=== PATIENT | female | born 1935 | race Caucasian/White ===

== ENCOUNTER 2019-12-08 13:23 | Outpatient (CLI) | payer MEDICARE, BC, SELFPAY ==
--- NOTE | ~2019-12-08 | MM_ITS ---
EXAMINATION: MM screening mare BI w ruth HISTORY: Screening mammogram TECHNIQUE: Craniocaudal and mediolateral oblique 3-D tomosynthesis images were obtained and synthetic 2-D images were generated. CAD analysis was submitted and interpreted. COMPARISON: Comparison to multiple prior studies sequentially, with oldest reviewed study dated 11/08. BREAST PARENCHYMAL COMPOSITION: Breast composed of scattered areas of fibroglandular density FINDINGS: There is no evidence of suspicious mass, calcification, or architectural distortion to sugg est malignancy in either breast. There has been no suspicious interval change. IMPRESSION: 1. No mammographic evidence of malignancy. 2. Recommend routine screening mammography in one year. BI-RADS Category 1: Negative Reviewed, dictated and finalized at location A.
== END 2019-12-08 13:24 | disposition home or self-care (01) ==
PROVIDERS: PCP Internal Medicine; Visit Provider Internal Medicine
DX: Z12.31 Encounter for screening mammogram for malignant neoplasm of breast (principal)
CPT/HCPCS: 77063; 77067

== ENCOUNTER 2020-01-14 21:25 | Emergency (ER) | payer MEDICARE, BC, SELFPAY ==
--- NOTE | ~2020-01-14 | XR_ITS ---
EXAMINATION: XR hand LT min 3V DATE: 01/14/2020 23:31 INDICATION: Left hand pain. TECHNIQUE: 3 views of left hand were obtained. COMPARISON: None. FINDINGS: Bone alignment is normal. No fracture. There is severe osteoarthritis of first carpometacar pal joint, moderate osteoarthritis of first-third metacarpophalangeal joints, severe osteoarthritis o f second, third, and fifth distal interphalangeal joints, and mild to moderate osteoarthritis of the other interphalangeal joints. There is soft tissue swelling of the hand. IMPRESSION: 1. Polyarticular osteoarthritis. Reviewed, dictated and finalized at location A.
[2020-01-14 21:38] VITALS: BP 117/68; PULSE 88; RESP 16; TEMP 36.3; O2SAT 100
--- NOTE | 2020-01-14 21:42 | PC.NURSE ---
Patient has ring noted to left ring finger. Swelling noted above and below the ring. There is no way to slide the ring over her knuckle and patient agrees to have ring cut and removed due to risk of increased swelling and injury to the finger.
--- NOTE | 2020-01-14 22:48 | ED.UPPEXIN ---
HPI - Extremity Injury (Upper) General Chief Complaint: Extremity Injury, Upper Stated Complaint: swelling to left arm and hand Time Seen by Provider: 01/14/20 21:36 History of Present Illness HPI narrative: Pain and swelling to the left hand and forearm for the past few hours. She was working in the garden when she was pulling on something and felt a pop in her left hand. She had pain initially. The pain then faded. After awhile she began to notice itching in the hand and wrist. This area then began to swell and spread up the arm. As the swelling increased it became painful. She is not aware of any exposures. She has h/o severe allergies. no systemic symptoms. Related Data Home Medications Medication Instructions Recorded Confirmed gabapentin 01/14/20 mirabegron [Myrbetriq] mg PO 01/14/20 pregabalin [Lyrica] 75 mg PO BID 01/14/20 simvastatin mg 01/14/20 Allergies Allergy/AdvReac Type Severity Reaction Status Date / Time cephalexin Allergy Unknown Verified 01/14/20 22:51 chlorpheniramine Allergy Unknown Verified 01/14/20 22:51 guaifenesin Allergy Unknown Unknown Verified 01/14/20 21:48 phenylephrine Allergy Unknown Verified 01/14/20 22:52 phenylpropanolamine Allergy Unknown Unknown Verified 01/14/20 21:48 prednisone Allergy Unknown Unknown Verified 01/14/20 21:48 pseudoephedrine Allergy Unknown Verified 01/14/20 22:52 sulfamethoxazole Allergy Unknown Unknown Verified 01/14/20 21:48 trimethoprim Allergy Unknown Unknown Verified 01/14/20 21:48 duloxetine AdvReac Nausea and Verified 01/14/20 21:48 Vomiting Review of Systems Review of Systems: All systems reviewed & are unremarkable except as noted in HPI and below Constitutional: Constitutional: Denies chills and Denies fever(s) Cardiovascular: Cardiovascular: Denies chest pain Respiratory: Respiratory: Denies dyspnea Musculoskeletal: Musculoskeletal: Denies back pain Integumentary/Breasts: Skin/Breast: Reports pruritus and Denies erythema Neurologic: Denies numbness and Denies weakness PMFSH Family History Family History Father Asthma Mother Family history of lung cancer Family history of primary malignant neoplasm of liver Family history of malignant neoplasm of brain Social History Social History Smoking status: Never smoker Second hand tobacco smoke exposure: No Alcohol intake: never Exam Const: General: healthy appearing, no acute distress and alert Orientation/consciousness: patient oriented x3 HENMT: Head: normal to inspection Neck: Neck: normal visual inspection and no lymphadenopathy Chest: Chest palpation & inspection: no tenderness Resp: Effort & Inspection: normal respiratory effort Auscultation: clear to auscultation bilaterally, no rales, no rhonchi and no wheezes Cardio: Jugular venous distension: no JVD Rate: regular rate Rhythm: regular rhythm Heart sounds: no murmurs GI: Inspection: non-distended GI Palp: Yes Soft to palpation and No Tenderness to palpation present (GI) Skin: General skin exam: normal color Neuro: General: patient oriented x3 and moves all extremities Speech: normal speech Extrem: Other: Moderate well demarcated swelling of the left hand extending 1[address] the forearm. Mildly increased warmth. Normal color. Tnederness over the dorsum of the had. Mild scattered abrasions. Psych: Appearance: well kempt Affect: normal affect Course Vital Signs Vital signs: Vital Signs Temperature 36.3 C L 01/14/20 21:38 Pulse Rate 88 01/14/20 21:38 Respiratory Rate 16 01/14/20 21:38 Blood Pressure 117/68 01/14/20 21:38 Pulse Oximetry 100 01/14/20 21:38 Temperature 36.3 C L 01/14/20 21:38 Pulse Rate 84 01/15/20 02:15 Respiratory Rate 18 01/15/20 02:15 Blood Pressure 112/63 01/15/20 02:15 Pulse Oximetry 98 01/15/20 02:15 MDM - Extrem
[2020-01-14] MEDS: FAMOTIDINE 20 MG TABLET PO (23:04)
[2020-01-14] MEDS: CEPHALEXIN 500 MG CAPSULE PO (23:04)
[2020-01-14] MEDS: diphenhydrAMINE HCl CAP 25 MG CAPSULE 50 MG PO (23:04)
[2020-01-14] MEDS: EPINEPHrine HCL INJ 1 MG/ML AMPUL 0.3 MG IM (23:04)
[2020-01-14 23:11] VITALS: BP 110/63; PULSE 75; RESP 14; O2SAT 96
[2020-01-15 00:45] VITALS: BP 136/62; PULSE 80; RESP 14; O2SAT 100
[2020-01-15 02:15] VITALS: BP 112/63; PULSE 84; RESP 18; O2SAT 98
== END 2020-01-15 02:05 | disposition home or self-care (01) ==
PROVIDERS: Emergency Provider Emergency Medicine; PCP Internal Medicine
DX: T78.40XA Allergy, unspecified, initial encounter (principal)
CPT/HCPCS: 73130; 96372; 99283; A9270; J0171

== ENCOUNTER → 2020-09-14 13:25 | Outpatient (CLI) | payer MEDICARE, BC, SELFPAY ==
--- NOTE | ~2020-09-14 | MR_ITS ---
EXAMINATION: MR shoulder RT wo con DATE: 09/14/2020 14:56 INDICATION: Right shoulder and arm pain post injury 2 weeks prior. TECHNIQUE: Magnetic resonance imaging (MRI) of the right shoulder was performed without intravenous c ontrast. Sequences included axial PD-weighted FS FSE, coronal oblique PD-weighted FS FSE, coronal obl ique T2-weighted FS FSE, sagittal PD-weighted FS FSE, and sagittal T1-weighted SE. COMPARISON: None. FINDINGS: Coracoacromial arch: The acromion undersurface is curved in morphology (type II). Anterior subacromial spur at the acromia l insertion of the otherwise normal coracoacromial ligament. Moderate acromioclavicular osteoarthriti s. Rotator cuff: Postoperative change of prior rotator cuff repair with suture anchor tracks at the greater tuberosity and foci of susceptibility artifact on the overlying anterior head of the deltoid muscle. Recurrent full-thickness supraspinatus tendon tear occurring at the critical zone approximately 1.7 cm from the footplate. There is approximately 4 cm medial retraction of the tear margin which is located at the level of the neck of the glenoid. There is medial retraction as well as moderate fatty atrophy of the supraspinatus muscle belly. Mild tendinopathy without discrete tear of the infraspinatus tendon. The teres minor tendon is normal. Moderate subscapularis tendinopathy with partial tear involving the ce phalad half of the lesser tuberosity footplate. There are additional foci of susceptibility artifact along the distal tendon suggesting prior repair. No significant fatty atrophy of the subscapularis, i nfraspinatus or teres minor muscle bellies. Biceps tendon, glenoid labrum and glenohumeral cartilage: Moderate glenohumeral osteoarthritis with partial thickness cartilage loss approaching full/near full -thickness along the cephalad and posterior glenoid with mild subarticular cystic change at the 9:00 position of the posterior glenoid. There is associated tear of the superior to posterior superior gle noid labrum. More amorphous increased signal of the thickened anterior to anteroinferior glenoid cons istent with degenerative tearing. There is a full-thickness tear of the intra-articular long head bic eps tendon. The frayed and thickened tear margin is retracted distally to approximately 8 cm below le batool of the inferior margin of the intertubercular groove. There is a fluid collection surrounding the retracted tendon and proximal aspect of the associated muscle belly consistent with a hematoma which measures approximately 2.6 x 2.4 similar in maximal transaxial dimensions and approximately 7.5 cm i n craniocaudal length. Fluid: Physiologic amount fluid in the glenohumeral joint space with extension of a minimal amount of fluid through the full-thickness rotator cuff tear defect into the subacromial/subdeltoid bursa. No loose o steochondral bodies. Bones: Normal marrow signal. No fracture or pathologic marrow replacing process. IMPRESSION: 1. Full-thickness tear of the intra-articular long head biceps tendon with significant distal retract ion of the torn tendon and moderate sized surrounding fluid collection likely representing a posttrau matic hematoma. 2. Change of prior rotator cuff repair with recurrent full-thickness supraspinatus tendon tear with s ignificant retraction and moderate secondary fatty atrophy. 3. Additional partial tear involving the cephalad half of the lesser tuberosity insertion of the subs capularis tendon without fatty atrophy. 4. Moderate glenohumeral osteoarthritis with superior to posterior superior labral tear more amorphou s anteroinferior labral degeneration. 5. Moderate acromioclavicular osteoarthritis. Reviewed, dictated and finalized at location B. IMP
== END ==
PROVIDERS: PCP Internal Medicine; Visit Provider Internal Medicine
DX: S49.91XA Unspecified injury of right shoulder and upper arm, initial encounter (principal); X58.XXXA Exposure to other specified factors, initial encounter; M19.011 Primary osteoarthritis, right shoulder
CPT/HCPCS: 73221

== ENCOUNTER 2020-10-18 09:55 | Outpatient (CLI) | payer MEDICARE, BC, SELFPAY ==
--- NOTE | ~2020-10-18 | XR_ITS ---
EXAMINATION: XR hip RT min 2V DATE: 10/18/2020 10:17 INDICATION: Right hip pain. TECHNIQUE: 2 views of right hip were obtained. COMPARISON: None. FINDINGS: Bone alignment is normal. No fracture. Right hip joint space is normal. There is severe lum bar spondylosis. IMPRESSION: 1. Normal right hip. Reviewed, dictated and finalized at location B. IMPRESSION: 1. Normal right hip.
== END 2020-10-18 09:56 | disposition home or self-care (01) ==
LOC: ANHIMG 10:04
PROVIDERS: PCP Internal Medicine; Visit Provider Internal Medicine
DX: M25.551 Pain in right hip (principal)
CPT/HCPCS: 73502

== ENCOUNTER 2021-01-03 10:31 | Observation (INO) | payer MEDICARE, BC, SELFPAY ==
[2021-01-03] VITALS (50 sets, daily range): BP systolic 113–171; BP diastolic 50–91; PULSE 51–75; RESP 8–23; TEMP 36.4–36.6; O2SAT 76–100; BMI 22.8
--- NOTE | ~2021-01-03 | XR_ITS ---
EXAMINATION: XR chest 2V DATE: 01/03/2021 11:41 INDICATION: Lower chest pain. Weakness and fatigue. TECHNIQUE: Frontal and lateral views of the chest were obtained. COMPARISON: Chest 2 views 04/05/2014 FINDINGS: A calcified left lung nodule and calcified left hilar lymph nodes are consistent with old g ranulomatous disease. No pleural effusion or pneumothorax. The heart size is normal. IMPRESSION: 1. No acute cardiopulmonary disease. Reviewed, dictated and finalized at location A.
--- NOTE | ~2021-01-03 | CT_ITS ---
EXAMINATION: CTA brain carotid DATE: 01/03/2021 15:59 INDICATION: Headache and dizziness. TECHNIQUE: Computed tomographic angiography (CTA) of the head was performed without and with 100 mL O mnipaque-350 intravenous contrast. CTA of the neck was performed with intravenous contrast. Automated exposure control and iterative reconstruction technique were employed. The dose-length product was 1 626.80 mGy-cm. Maximum intensity projection and volume rendered 3D-reconstructions were created by elisabet becker technologist on a separate workstation. COMPARISON: Head CT 07/23/2010 FINDINGS: HEAD CTA: There are scattered areas of low attenuation in the cerebral white matter, which is within normal limits for the patient's age. There is no intracranial hemorrhage, acute infarction, or abnorm al intracranial mass lesion. The ventricles are normal in size. There are likely changes of ocular le ns replacement surgeries. There is mild mucosal thickening in the paranasal sinuses. The mastoid air cells are normal. The vertebral arteries are codominant. There is no significant stenosis of basilar artery or the posterior cerebral arteries. There is no significant stenosis of the intracranial inter nal carotid arteries or anterior or middle cerebral arteries. Anterior communicating artery is normal . There is no aneurysm. NECK CTA: There are no pathologically enlarged lymph nodes. There is no significant stenosis of the v ertebral arteries. There is plaque in the proximal internal carotid arteries. There is 0% stenosis of the proximal right internal carotid artery relative to normal distal artery lumen diameter (NASCET c riteria). There is 0% stenosis of the proximal left internal carotid artery relative to normal distal artery lumen diameter. There is severe cervical spondylosis. IMPRESSION: 1. Normal aging brain. 2. No aneurysm or significant intracranial arterial stenosis. 3. 0% stenosis of the proximal internal carotid arteries relative to normal distal artery lumen diame ters (NASCET criteria). Reviewed, dictated and finalized at location A. IMPRESSION: 1. Normal aging brain. 2. No aneurysm or significant intracranial arterial stenosis. 3. 0% stenosis of the proximal internal carotid arteries relative to normal dis hola artery lumen diameters (NASCET criteria).
--- NOTE | 2021-01-03 11:08 | ED.DIZZY ---
HPI - Dizziness General Chief Complaint: Dizziness Stated Complaint: pre-syncopal episode at imaging center, nausea Time Seen by Provider: 01/03/21 11:06 Source: patient Mode of arrival: EMS Limitations: no limitations History of Present Illness HPI Narrative: Patient is an 85-year-old female with history of bowel obstruction who presents for evaluation of lightheadedness and dizziness. Patient states that she has felt unwell since approximately 9 AM this morning, after bringing groceries into her house, patient was diaphoretic, lightheaded with mild sensation of unsteadiness. She denies spinning sensation. She reports nausea and then reported to get her mammogram this morning, and experienced 3 episodes of nonbloody, nonbilious emesis. Patient was diaphoretic, EMS was called, and patient was noted to be tachycardic and hypotensive 100/52 on scene. Patient's blood glucose was appropriate. Patient was transported to our emergency department. At the time of assessment, patient reports mild dizziness. She denies diaphoresis. No chest pain or abdominal pain. She endorses nausea. She denies any focal weakness or numbness. No headache or vision changes. Patient has been compliant with her medications. She states that she has air conditioning and denies any extreme exposure to the heat. Patient has had normal oral intake, aside from the episodes of emesis this morning. Related Data Home Medications Medication Instructions Recorded Confirmed gabapentin 01/14/20 mirabegron [Myrbetriq] mg PO 01/14/20 pregabalin [Lyrica] 75 mg PO BID 01/14/20 simvastatin mg 01/14/20 Allergies Allergy/AdvReac Type Severity Reaction Status Date / Time cephalexin Allergy Unknown Unknown Verified 01/03/21 11:06 chlorpheniramine Allergy Unknown Unknown Verified 01/03/21 11:06 guaifenesin Allergy Unknown Unknown Verified 01/14/20 21:48 phenylephrine Allergy Unknown Unknown Verified 01/03/21 11:06 phenylpropanolamine Allergy Unknown Unknown Verified 01/14/20 21:48 prednisone Allergy Unknown Unknown Verified 01/14/20 21:48 pseudoephedrine Allergy Unknown Unknown Verified 01/03/21 11:06 sulfamethoxazole Allergy Unknown Unknown Verified 01/14/20 21:48 trimethoprim Allergy Unknown Unknown Verified 01/14/20 21:48 duloxetine AdvReac Nausea and Verified 01/14/20 21:48 Vomiting Review of Systems Review of Systems: Narrative: CONSTITUTIONAL: Denies fever, chills, or sweats. EYES: Denies visual changes, redness, or discharge. ENT: Denies rhinorrhea, congestion, sore throat, or otalgia. CARDIOVASCULAR: Denies chest pain, palpitations, or edema. RESPIRATORY: Denies cough or dyspnea. GASTROINTESTINAL: Denies abdominal pain, reports nausea and vomiting GENITOURINARY: Denies dysuria or hematuria. SKIN: Denies rash or itching. MUSCULOSKELETAL: Denies back pain, joint pain, or myalgia. NEUROLOGIC: Denies current headache, numbness, or weakness. [facility] Family History Family History Father Asthma Mother Family history of lung cancer Family history of primary malignant neoplasm of liver Family history of malignant neoplasm of brain Social History Social History Smoking status: Never smoker Second hand tobacco smoke exposure: No Alcohol intake: never Exam Narrative: Exam Narrative: GENERAL: Awake, alert, conversant HEAD: Normocephalic, atraumatic. EYES: PERRLA and EOMI. ENT: Nares clear, no rhinorrhea or epistaxis. Mucous membranes moist. NECK: Supple. CHEST: No respiratory distress, breathing even and non labored HEART: Bradycardic rate, sinus rhythm ABDOMEN:Non distended, non tender EXTREMITIES: Normal range of motion. No edema. SKIN: Warm, dry, no rash. NEURO:No focal deficits. Alert and oriented x3 Course Vital Signs Vital signs: Vital Signs Temperature 36.5 C 01/03/21 10:47 Pulse Rate 55 L 01/03/21 10:47 Respi
[2021-01-03] MEDS: ONDANSETRON INJ 4 MG/2 ML VIAL IV PUSH (11:31)
[2021-01-03] MEDS: SODIUM CHLORIDE 0.9% IV 500 ML 999 ML IV CONT (11:31)
--- NOTE | 2021-01-03 11:33 | ECG_ITS ---
Measurements Intervals Emmalena Rate: 51 P: 257 AR: 234 QRS: 64 QRSD: 102 T: 70 QT: 470 QTc: 436 Interpretive Statements SINUS BRADYCARDIA BORDERLINE AV CONDUCTION DELAY MINIMAL Q WAVES- INFERIOR LEADS BORDERLINE ST-T WAVE ABNORMALITY- HIGH LATERAL LEADS BASELINE ARTIFACT- I, III, AVR, AVL, AVF, V1-V5 BORDERLINE ECG Electronically Signed On 01-03-2021 11:55:38 CDT by Salvador Laurent D.O.
--- NOTE | 2021-01-03 11:35 | PC.NURSE ---
Pt taken to xray
[2021-01-03 12:33] LABS: Basophils Percent Auto 0.5 % (0.2-1.2); Eosinophils Percent Auto 0.1 % (0-4.4); Hematocrit 36.6 % (37.0-47.0); Hemoglobin 12.3 g/dL (12.0-15.0); Immature Granulocyte Absolute 0.03 K/mm3 (0.00-0.031); Immature Granulocyte Percent A 0.4 % (0-0.5); Lymphocytes Absolute Auto 1.82 K/mm3 (0.9-3.2); Lymphocytes Percent Auto 22.6 % (18.3-44.2); Mean Corpuscular HGB Conc 33.6 g/dl (32-36); Mean Corpuscular Hemoglobin 30.6 pg (26-34); Mean Platelet Volume 9.4 fl (7.4-10.4); Monocytes Absolute Auto 0.7 K/mm3 (0.1-0.6); Monocytes Percent Auto 8.1 % (2.6-8.5); Neutrophils Absolute Auto 5.5 K/mm3 (1.3-6.7); Neutrophils Percent Auto 68.3 % (45.5-73.1); Platelet Count Result 271 k/mm3 (150-375); Red Blood Count 4.02 M/mm3 (4.2-5.4); Red Cell Distribution Width 12.1 % (11.5-14.5)
[2021-01-03 12:43] LABS: Alanine Aminotransferase 17 U/L (4-35); Albumin Level 4.3 g/dL (3.5-5.1); Alkaline Phosphatase 62 U/L (38-126); Anion Gap 5 mmol/L (8-16); Aspartate Amino Transferase 30 U/L (14-36); Bilirubin,Total 0.5 mg/dL (0.2-1.3); Blood Urea Nitrogen 26 mg/dL (7-17); Calcium 9.6 mg/dL (8.4-10.2); Carbon Dioxide 29 mmol/L (22-30); Chloride 105 mmol/L (98-107); Estimated CRCL calculation 35 ml/min; Estimated Glomerular Filt Rate > 60; Glucose 102 mg/dL (65-105); Lipase 118 U/L (23-300); Potassium 4.5 mmol/L (3.4-5.0); Sodium 139 mmol/L (137-145)
[2021-01-03 12:54] LABS: Troponin I < 0.012 ng/mL (0.000-0.034)
[2021-01-03] MEDS: ACETAMINOPHEN 500 MG TABLET 1000 MG PO (15:22)
[2021-01-03 16:05] LABS: Troponin I < 0.012 ng/mL (0.000-0.034)
--- NOTE | 2021-01-03 19:52 | PC.NURSE ---
Report received from PARDEEP Arora.
--- NOTE | 2021-01-03 22:19 | PM.IMHP ---
H&P: HPI History of Present Illness Date/Time: 01/03/21 22:19Thitariq is an 85-year-old female patient who has had no prior heart history. 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 The patient stated that she had not really been outside today. She when walked into workers with her friend did some grocery shop in but did not think that she got excessively overheated. When the patient got home she felt nauseated and vomited several times. At that point she was diaphoretic. But she did not have any chest pain or palpitations. She felt extremely dizzy as well. This occurred around 9:00 a.m. this morning. EMS was activated. The the patient was found to be hypotensive with a normal blood sugar and tachycardia. She had no focal weakness or numbness. The patient stated that she did not take any new medication. Her heart rate on EKG was noted to be in the 50s and it was felt that the patient had symptomatic bradycardia. The patient was given IV fluids, p.o. Tylenol and IV Zofran. The patient states that she feels fine now and has no complaints of any dizziness or chest pain or nausea vomiting. Troponin is negative and the patient is currently in the 60s. The patient is not on any rate controlling medications. The patient is being admitted for observation status on the date of service of 01/03/2021. Chief Complaint: bradycardia Review of Systems Review of Systems: All systems reviewed & are unremarkable except as noted in HPI and below Constitutional: Constitutional: Reports as per HPI and Reports no additional constitutional complaints Eyes: Eyes: Reports as per HPI and Reports no additional eye complaints ENT: Reports system reviewed and no additional complaints, except as documented and Reports Normal hearing present Cardiovascular: Cardiovascular: Reports no additional cardiovascular complaints Respiratory: Respiratory: Reports no additional respiratory complaints and Reports no additional respiratory complaints Gastrointestinal: Gastrointestinal: Reports as per HPI and Reports no additional gastrointestinal complaints Musculoskeletal: Musculoskeletal: Reports no additional musculoskeletal complaints Integumentary/Breasts: Skin/Breast: Reports system reviewed and no additional complaints, except as docu and Reports as per HPI Neurologic: Reports system reviewed and no additional complaints, except as documented, Reports as per HPI and Reports Normal hearing present Psychiatric: Psychiatric: Reports no additional psychiatric complaints and Reports as per HPI Endocrine: Endocrine: Reports no additional endocrine complaints Hematologic/Lymphatic: Hematologic/Lymphatic: Reports no additional hematologic/lymphatic complaints Allergic/Immunologic: Allergic/Immunologic: Reports no additional allergic/immunologic complaints [facility] Past Medical History Medical History (Updated 01/03/21 @ 22:27 by Sonal Carlos NP) Fibromyalgia History of small bowel obstruction Hyperlipidemia Ovarian cancer Peripheral neuropathy Surgical History Surgical History (Updated 01/03/21 @ 22:28 by Sonal Carlos NP) H/O repair of left rotator cuff H/O: hysterectomy History of removal of Port-a-Cath History of tonsillectomy History of total right knee replacement Family History Family History Father Asthma Mother Family history of primary malignant neoplasm of liver Family history of lung cancer Family history of malignant neoplasm of brain Sibling Bone cancer Social History Social History (Updated 01/03/21 @ 22:32 by Sonal Carlos NP) Social History: the patient became many years ago. The patient had 2 children and 1 daughter of rye syndrome. The patient has 1 daughter left who is in contact with her. The patient is listed as a full code. She lives home alone is very active. The patient used to
[2021-01-04] VITALS (9 sets, daily range): BP systolic 110–129; BP diastolic 47–55; PULSE 54–79; RESP 16–18; TEMP 35.7–36.7; O2SAT 98–100
[2021-01-04] MEDS: DOCUSATE SODIUM 100 MG CAPSULE PO (00:11)
[2021-01-04] MEDS: PREGABALIN (*CRX) 75 MG CAPSULE PO ×2 (00:11→08:49)
--- NOTE | 2021-01-04 02:21 | ADMGEN ---
This patient, Dawna Cruz, was admitted to IMU Room 211-01 on 01-03-21 at 2014. Patient/family oriented to hospital policies and general routines including ID bracelet, bed and alarms, visiting hours, pain management, procedures, bathroom and other care routines, personal items, smoking policy, room service/diet, and visiting hours. Information on how to activate the Rapid Response Team has been discussed. Patient/Family are encouraged to report perceived risks to care and to ask questions if they do not understand what they are told or what they should do.
[2021-01-04 05:20] LABS: Lactic Acid Reflex 0.7 mmol/L (0.7-2.1)
[2021-01-04 05:37] LABS: Basophils Absolute Auto 0.1 K/mm3 (0.0-0.1); Basophils Percent Auto 0.7 % (0.2-1.2); Eosinophils Percent Auto 0.6 % (0-4.4); Hematocrit 36.9 % (37.0-47.0); Hemoglobin 12.2 g/dL (12.0-15.0); Immature Granulocyte Absolute 0.02 K/mm3 (0.00-0.031); Immature Granulocyte Percent A 0.3 % (0-0.5); Lymphocytes Absolute Auto 2.57 K/mm3 (0.9-3.2); Lymphocytes Percent Auto 35.7 % (18.3-44.2); Mean Corpuscular HGB Conc 33.1 g/dl (32-36); Mean Corpuscular Hemoglobin 30.3 pg (26-34); Mean Corpuscular Volume 91.6 fl (80-100); Mean Platelet Volume 9.5 fl (7.4-10.4); Monocytes Absolute Auto 0.4 K/mm3 (0.1-0.6); Monocytes Percent Auto 5.6 % (2.6-8.5); Neutrophils Absolute Auto 4.1 K/mm3 (1.3-6.7); Neutrophils Percent Auto 57.1 % (45.5-73.1); Platelet Count Result 270 k/mm3 (150-375); Red Blood Count 4.03 M/mm3 (4.2-5.4); Red Cell Distribution Width 12.3 % (11.5-14.5); White Blood Count 7.2 K/mm3 (4.5-10.0)
[2021-01-04 05:49] LABS: Sodium 140 mmol/L (137-145)
[2021-01-04 05:56] LABS: Alanine Aminotransferase 16 U/L (4-35); Albumin Level 4.2 g/dL (3.5-5.1); Alkaline Phosphatase 57 U/L (38-126); Anion Gap 8 mmol/L (8-16); Aspartate Amino Transferase 32 U/L (14-36); Bilirubin,Total 0.4 mg/dL (0.2-1.3); Blood Urea Nitrogen 25 mg/dL (7-17); Calcium 9.3 mg/dL (8.4-10.2); Carbon Dioxide 28 mmol/L (22-30); Chloride 104 mmol/L (98-107); Estimated CRCL calculation 35 ml/min; Estimated Glomerular Filt Rate > 60; Glucose 96 mg/dL (65-105); Lactate Dehydrogenase 399 U/L (313-618); Magnesium 2.2 mg/dL (1.6-2.3); Potassium 4.2 mmol/L (3.4-5.0)
[2021-01-04 07:23] LABS: Thyroid Stimulating Hormone Reflex 0.769 uIU/mL (0.465-4.68)
[2021-01-04] MEDS: polyethylene glycoL 3350 17 GM POWD.PACK PO (08:42)
[2021-01-04] MEDS: SIMVASTATIN 20 MG TABLET 40 MG PO (08:42)
[2021-01-04] MEDS: ASPIRIN 325 MG TABLET PO (08:42)
[2021-01-04] MEDS: CYANOCOBALAMIN 500 MCG TABLET PO (08:42)
[2021-01-04] MEDS: SENNOSIDES 8.6 MG TABLET PO (08:43)
--- NOTE | 2021-01-04 09:17 | ECHO_ITS ---
Patient Info Name: Dawna Cruz Age: 85 years : 1935 Gender: Female Ht: 62 in Wt: 124 lbs BSA: 1.57 m2 HR: 62 bpm BP: 128 / 55 mmHg Technical Quality: Good Exam Date: 01/04/2021 10:21 AM Exam Location: [facility] Patient Status: Inpatient Admit Date: 01/03/2021 Staff Ordering Physician: Arnol Forrester MD (allyn) Planing Machine Operator: Minnie Nichols RDCS Attending Provider: Mylene Bustillo MD Exam Type: CA echo doppler color flow Study Info Indications R42 - Dizziness and giddiness R00.1 - Bradycardia, unspecified Complete two-dimensional, color flow and Doppler transthoracic echocardiogram is performed. Summary 1. Complete two-dimensional, color flow and Doppler transthoracic echocardiogram is performed. 2. Technically difficult study with limited views. 3. Left ventricular chamber dimension is normal. 4. Left ventricular wall thickness is mildly increased. 5. Left ventricular systolic function is normal with an ejection fraction by Biplane Method of Discs of 69 %. 6. E/e' 15.1 is elevated. 7. Evidence for elevated left venticular end-diastolic pressure. 8. There is mild aortic valve regurgitation. Left Ventricle Left ventricular chamber dimension is normal. Left ventricular wall thickness is mildly increased. Left ventricular systolic function is normal with an ejection fraction by Biplane Method of Discs of 69 %. E/e' 15.1 is elevated. Evidence for elevated left venticular end-diastolic pressure. Right Ventricle Right ventricular chamber dimension is normal. Right ventricular systolic function is normal. Ventricular Septum Intact interventricular septum visualized by 2D imaging. Left Atria Left atrial chamber dimension is mildly enlarged. Right Atria Right atrial chamber dimension is normal. Atrial Septum Interatrial septum not well visualized by 2D imaging. Aortic Valve There is mild aortic valve regurgitation. There is mild aortic valve sclerosis. There is no aortic valve stenosis. Aortic valve is not well visualized. Pulmonic Valve There is trace pulmonic regurgitation. Pulmonary valve is not well visualized. There is no pulmonic valve stenosis. Mitral Valve Mitral valve is not well visualized. There is mild mitral valve regurgitation. There is no mitral valve stenosis. Mild thickening of the mitral valve. Tricuspid Valve The tricuspid valve is not well visualized. There is trace tricuspid valve regurgitation. There is no significant tricuspid valve stenosis. No pulmonary hypertension, estimated pulmonary arterial systolic pressure is 28 mmHg. Pericardium/Pleural Pericardium is normal in appearance with no evidence for significant pericardial effusion. Inferior Vena Cava Normal inferior vena cava with >50% collapse upon inspiration consistent with normal right atrial pressure, 5 mmHg. Left Ventricular Outflow Tract Name Value Normal LVOT 2D LVOT Diameter 2.0 cm LVOT Doppler LVOT Peak Gradient 4 mmHg LVOT Mean Gradient 2 mmHg LVOT VTI 23 c
[2021-01-04] MEDS: MULTIVITAMINS /C LUTEIN (CENTRUM SILVER) TABLET *BKC 1 TAB PO (09:30)
--- NOTE | 2021-01-04 10:19 | PM.CNCAR ---
Assessment and Plan Assessment and plan (1) Bradycardia: Code(s): R00.1 - Bradycardia, unspecified Status: Acute Assessment and Plan: Likely due to exaggerated vasovagal response to nausea/vomiting and abdominal pain, also with likely slow heart rate at baseline Her HR currently in 60s She is asymptomatic from bradycardia 2D echo showed preserved LV function, mild aortic regurgitation (full report to follow) TSH and electrolytes within normal limits She is stable for discharge from cardiac standpoint Avoid blocking agents Need outpatient follow up with serial echos to follow up on incidental finding of AR (2) Hyperlipidemia: Code(s): E78.5 - Hyperlipidemia, unspecified Status: Chronic Assessment and Plan: Continue Simvastatin (3) Aortic regurgitation: Code(s): I35.1 - Nonrheumatic aortic (valve) insufficiency Status: Acute Assessment and Plan: Mild. Outpatient follow up History of Present Illness History of Present Illness Consult date/time: 01/04/21 10:19 85 y/o female with no significant past medical history except for HLD who presents with nausea/vomiting and is seen in cardiac consultation for bradycardia Patient is very well preserved mentally and physically for her age. She was shopping yesterday when felt hot and developed excessive diaphoresis, she managed to leave to the hospital for mammogram that she was scheduled for and over there she developed nausea, vomiting and abdominal pain. She was sent to ER. Her heart rate noted to be slow at 51 pbm with sinus bradycardia and no evidence of heart block. feels back to normal now. Tele reveals heart rate in 60s with PACs. Never had any heart issues or cardiac work up in the past Labs were unremarkable including electrolytes and TSH Never smoker Mother had heart attack in her 60s Reason For Visit: Symptomatic Bradycardia Review of Systems Review of Systems: All systems reviewed & are unremarkable except as noted in HPI and below Constitutional: Constitutional: Denies fatigue and Denies headache(s) Eyes: Eyes: Denies blurry vision ENT: Reports Normal hearing present and Denies headache(s) Cardiovascular: Cardiovascular: Denies chest pain, Denies diaphoresis, Denies pedal edema, Denies leg edema, Denies lightheadedness, Denies palpitations and Denies dyspnea Respiratory: Respiratory: Denies cough and Denies dyspnea Gastrointestinal: Gastrointestinal: Denies abdominal pain Musculoskeletal: Musculoskeletal: Denies back pain Neurologic: Reports Normal hearing present and Denies headache(s) Psychiatric: Psychiatric: Denies anxiety Endocrine: Endocrine: Denies fatigue and Denies palpitations PMFSH Past Medical History Medical History (Updated 01/04/21 @ 10:29 by Arnol Forrester MD) Fibromyalgia History of small bowel obstruction Hyperlipidemia Ovarian cancer Peripheral neuropathy Surgical History Surgical History (Updated 01/03/21 @ 22:28 by Sonal Carlos NP) H/O repair of left rotator cuff H/O: hysterectomy History of removal of Port-a-Cath History of tonsillectomy History of total right knee replacement Family History Family History Father Asthma Mother Family history of primary malignant neoplasm of liver Family history of lung cancer Family history of malignant neoplasm of brain Sibling Bone cancer Social History Social History (Updated 01/03/21 @ 22:32 by Sonal Carlos NP) Social History: the patient became many years ago. The patient had 2 children and 1 daughter of rye syndrome. The patient has 1 daughter left who is in contact with her. The patient is listed as a full code. She lives home alone is very active. 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 lifelong nonsmoker Smoking status: Never smoker Second hand tobacco smoke exposure: No Alc
--- NOTE | 2021-01-04 14:01 | PM.DS ---
DS: Admitting Diagnosis Admitting Diagnosis Admitting Diagnosis: Bradycardia DS: Discharge Diagnosis Discharge Diagnosis (1) Aortic regurgitation: Qualifiers: Cardiac valve disease etiology: etiology unspecified Qualified Code(s): I35.1 - Nonrheumatic aortic (valve) insufficiency Code(s): I35.1 - Nonrheumatic aortic (valve) insufficiency Status: Acute Assessment and Plan: to the neck concerns for mild aortic regurgitation as per cardiology Patient would need follow-up with serial echoes as per cardiology (2) Bradycardia: Code(s): R00.1 - Bradycardia, unspecified Status: Acute Assessment and Plan: resolved To follow cardiology As per recommendations need for Holter monitoring (3) Fibromyalgia: Code(s): M79.7 - Fibromyalgia Status: Chronic Assessment and Plan: continue management (4) Peripheral neuropathy: Qualifiers: Peripheral neuropathy type: idiopathic neuropathy, unspecified Qualified Code(s): G60.9 - Hereditary and idiopathic neuropathy, unspecified Code(s): G62.9 - Polyneuropathy, unspecified Status: Chronic Assessment and Plan: continue Lyrica (5) Hyperlipidemia: Qualifiers: Hyperlipidemia type: pure hypercholesterolemia Qualified Code(s): E78.00 - Pure hypercholesterolemia, unspecified Code(s): E78.5 - Hyperlipidemia, unspecified Status: Chronic Assessment and Plan: continue management (6) Near syncope: Code(s): R55 - Syncope and collapse Status: Acute Assessment and Plan: resolved DS: Summary Hospital Course Reason for hospitalization: bradycardia Hospital Course: 85-year-old female presented with complaints tachycardia, nausea and several episodes of vomiting. At the time of arrival she was noted to be bradycardic blood pressure was also on the lower side. patient was also noted to be extremely dizzy at the time. She was placed in telemetry and Cardiology was consulted. She received an echo which showed an incidental finding aortic regurgitation. EKG was reviewed which did not reveal any heart block. She was managed for symptomatic bradycardia however she continued to improve and was cleared by cardiology. She was advised outpatient follow-up with serial echoes. She is not being discharged in stable condition with follow-up. Status at Discharge Cognitive/behavioral status at discharge: stable Time Spent with Patient Time attestation: Total time spent providing and/or coordinating discharge services:>30 minutes Exam Const: General: cooperative HENMT: Head: normal to inspection Eyes: General: appearance normal, both eyes and all related structures Neck: Neck: normal visual inspection Resp: Auscultation: clear to auscultation bilaterally Cardio: Jugular venous distension: no JVD Palpation: normal PMI Rate: bradycardic Rhythm: regular rhythm Heart sounds: S1 normal heart sound present and S2 normal heart sound present GI: Inspection: normal to inspection GI Palp: Yes Soft to palpation and Yes No hepatosplenomegaly present Skin: General skin exam: normal color Neuro: General: patient oriented x3 Extrem: General: normal to inspection, no pedal edema, no calf tenderness and normal gait Psych: Appearance: grossly normal DS: Data Data Completed and Pending Labs on day of discharge: Labs from last 24 hours 01/04/21 01/04/21 01/04/21 04:56 04:56 04:56 WBC RBC Hgb Hct MCV MCH MCHC RDW Plt Count MPV Immature Gran % (Auto) Neut % (Auto) Lymph % (Auto) [place] % (Auto) Eos % (Auto) Baso % (Auto) Lymph # (Auto) [place] # (Auto) Eos # (Auto) Baso # (Auto) Abs Immat Gran (auto) Absolute Neuts (auto) Absolute Nucleated RBC Nucleated RBC % Sodium 140 Potassium 4.2 Chloride 104 Carbon Dioxide 28 Anion Gap 8 BUN 25 H Creati
== END 2021-01-04 14:50 | disposition home or self-care (01) ==
LOC: ANHED 17:28 → ANHIMU 19:33
PROVIDERS: Nurse Practitioner; Admitting Provider Internal Medicine; Emergency Provider Emergency Medicine; PCP Internal Medicine; Visit Provider Internal Medicine
DX: I35.1 Nonrheumatic aortic (valve) insufficiency (principal); R00.1 Bradycardia, unspecified; R42 Dizziness and giddiness; R55 Syncope and collapse; M79.7 Fibromyalgia; E78.5 Hyperlipidemia, unspecified; G62.9 Polyneuropathy, unspecified; Z85.43 Personal history of malignant neoplasm of ovary; Z90.710 Acquired absence of both cervix and uterus; Z96.651 Presence of right artificial knee joint
CPT/HCPCS: 36415; 70496; 70498; 71046; 80053; 83605; 83615; 83690; 83735; 84443; 84484; 85025; 93005; 93306; 96361; 96374; 99285; A9270; G0378; J2405; J7040; Q9967

== ENCOUNTER 2021-01-30 14:36 | Outpatient (CLI) | payer MEDICARE, BC, SELFPAY ==
--- NOTE | ~2021-01-30 | MM_ITS ---
EXAMINATION: MM screening mare BI w ruth HISTORY: Screening TECHNIQUE: Craniocaudal and mediolateral oblique 3-D tomosynthesis images were obtained and synthetic 2-D images were generated. CAD analysis was submitted and interpreted. COMPARISON: Comparison to multiple prior studies sequentially, with oldest reviewed study dated 11/11. BREAST PARENCHYMAL COMPOSITION: There are scattered areas of fibroglandular density. FINDINGS: There is no evidence of suspicious mass, calcification, or architectural distortion to sugg est malignancy in either breast. There has been no suspicious interval change. IMPRESSION: 1. No mammographic evidence of malignancy. 2. Recommend routine screening mammography in one year. BI-RADS Category 1: Negative Reviewed, dictated and finalized at location A.
== END 2021-01-30 14:37 | disposition home or self-care (01) ==
LOC: ANHIMG 14:44
PROVIDERS: PCP Internal Medicine; Visit Provider Internal Medicine
DX: Z12.31 Encounter for screening mammogram for malignant neoplasm of breast (principal)
CPT/HCPCS: 77063; 77067

== ENCOUNTER 2021-05-07 14:39 | Outpatient (CLI) | payer MEDICARE, BC, SELFPAY ==
--- NOTE | ~2021-05-07 | DEXA_ITS ---
Bone Density Report Name: Dawna Cruz Age: 85 Sex: Female Ethnicity: White Date of : 1935 Indication: postmenopausal; hysterectomy; Referring Provider: Mor Kinney Study: Bone densitometry was performed. Exam Date: May 07, 2021 Accession number: [id number] Bone Density: Region BMD T-score Z-score Classification AP Spine (L1, L2) 1.478 4.5 7.2 Normal Femoral Neck (Left) 0.726 -1.1 1.4 Osteopenia Total Hip (Left) 0.935 -0.1 2.3 Normal Total Hip Bilateral Avg 0.878 -0.6 1.8 Normal Femoral Neck (Right) 0.656 -1.7 0.8 Osteopenia Total Hip (Right) 0.819 -1.0 1.3 Normal World Health Organization criteria for BMD impression classify patients as: Normal (T-score at or above -1.0), Osteopenia (T-score between -1.0 and -2.5), or Osteoporosis (T-score at or below -2.5). 10-year Fracture Risk(1): Major Osteoporotic Fracture 13% Hip Fracture 4.0% Reported Risk Factors: [place] (), Neck BMD=0.656, BMI=22.9 (1) FRAX(R) Version 3.08. Fracture probability calculated for an untreated patient. Fracture probability may be lower if the patient has received treatment. Clinical Information Provided by Patient: Has the following medical conditions: Hysterectomy Menopause Age: 40 Onset of menses at age 12 Number of children 3 Impression: The patient has low bone mass, based on the Right Femoral Neck T-score. The patient has an estimated ten-year risk of hip fracture of 4% and an estimated ten-year risk of major fracture of 13%, based on the WHO FRAX algorithm. Discussion: BONE DENSITY IS LOW AT ONE OR MORE SKELETAL SITES. THE PATIENT'S BMD AND CLINICAL RISK FACTORS CONTRIBUTE TO THIS PATIENT'S INCREASED RISK OF FRACTURE. This patient's lowest T-score is low at one or more skeletal sites. It meets the World Health Organization's (WHO) criteria for ?low bone mass? (T-score between -1.0 and -2.5). The patient's 10-year risk of hip fracture as calculated by FRAX exceeds the threshold where pharmacological therapy is recommended by the National Osteoporosis Foundation (NOF). However, all treatment decisions require clinical judgment and consideration of individual patient factors, including patient preferences, comorbidities, previous drug use, risk factors not captured in the FRAX model (e.g., frailty, falls, vitamin D deficiency, increased bone turnover, interval significant decline in bone density) and possible under or overestimation of fracture risk by FRAX. The patient should follow a healthful lifestyle (good nutrition with adequate calcium and vitamin D, and appropriate weight-bearing exercise). Follow-Up: Consider a repeat BMD and Vertebral Fracture Assessment (VFA) exam in 2 years or sooner if medically necessary, to reassess this patient's status. Reported by: JANNET on 05/07/2021
== END 2021-05-07 14:40 | disposition home or self-care (01) ==
LOC: ANHIMG 14:40
PROVIDERS: PCP Internal Medicine
DX: M85.852 Other specified disorders of bone density and structure, left thigh (principal); M85.851 Other specified disorders of bone density and structure, right thigh
CPT/HCPCS: 77080

== ENCOUNTER 2021-07-31 15:22 | Emergency (ER) | payer MEDICARE, BC, SELFPAY ==
--- NOTE | ~2021-07-31 | CT_ITS ---
EXAMINATION: CT abdomen pelvis w con EXAM DATE: 07/31/2021 17:39 INDICATION: Vomiting, distension TECHNIQUE: Spiral CT of the abdomen and pelvis was performed following intravenous injection of 100 m L Omnipaque 350. Axial, coronal and sagittal images of the abdomen and pelvis were reviewed. The do se-length product (DLP) for this examination was 239.70 mGy-cm. The exposure was tailored according to patient size (auto mA exposure control), and iterative reconstruction (ASIR) was used as additiona l dose reduction technique. Comparison is made to prior examination from 08/14/2015. FINDINGS: The liver, spleen, adrenal glands and pancreas are unremarkable. Gallbladder is unremarkab le. No biliary obstruction. Portal and splenic veins are patent. Kidneys enhance symmetrically. T here is no hydronephrosis. Scattered renal cysts, up to 4 cm on the left ureter The uterus is not id entified and has likely been surgically resected. The bladder is unremarkable. There is no retroper itoneal or pelvic lymphadenopathy. There is mild scattered arteriosclerotic disease. Moderately distended jejunum with air-fluid levels. The ileum has only mild distention. Similar appea mike on previous examination, probably ileus or partial small bowel obstruction. Please correlate wi th prior clinical course from 2016. There is a 3 cm duodenal diverticulum. There is expected amount o f colonic stool. There is moderate sigmoid colonic diverticulosis. There is no adjacent inflammatory change to suggest diverticulitis. No free intraperitoneal gas. The heart is normal in size. Ther e are no pericardial or pleural effusions. The lung bases are unremarkable. There are no osteoblast ic or osteolytic lesions identified. There is advanced thoracolumbar spondylosis. IMPRESSION: Ileus or partial mid small bowel obstruction. Reviewed, dictated and finalized at location G. LOGIST
[2021-07-31 15:51] VITALS: BP 122/59; PULSE 66; RESP 18; TEMP 36.1; O2SAT 100
[2021-07-31] MEDS: ONDANSETRON INJ 4 MG/2 ML VIAL IV PUSH (16:09)
[2021-07-31 16:45] LABS: Basophils Absolute Auto 0.1 K/mm3 (0.0-0.1); Basophils Percent Auto 0.7 % (0.2-1.2); Eosinophils Percent Auto 0.3 % (0-4.4); Hematocrit 44.7 % (37.0-47.0); Hemoglobin 15.2 g/dL (12.0-15.0); Immature Granulocyte Absolute 0.04 K/mm3 (0.00-0.031); Immature Granulocyte Percent A 0.3 % (0-0.5); Lymphocytes Absolute Auto 1.89 K/mm3 (0.9-3.2); Lymphocytes Percent Auto 13.6 % (18.3-44.2); Mean Platelet Volume 9.6 fl (7.4-10.4); Monocytes Absolute Auto 1.1 K/mm3 (0.1-0.6); Monocytes Percent Auto 7.6 % (2.6-8.5); Neutrophils Absolute Auto 10.7 K/mm3 (1.3-6.7); Neutrophils Percent Auto 77.5 % (45.5-73.1); Platelet Count Result 279 k/mm3 (150-375); Red Blood Count 4.91 M/mm3 (4.2-5.4); Red Cell Distribution Width 12.3 % (11.5-14.5); White Blood Count 13.9 K/mm3 (4.5-10.0)
[2021-07-31 16:53] LABS: Alanine Aminotransferase 24 U/L (4-35); Albumin Level 5.2 g/dL (3.5-5.1); Alkaline Phosphatase 84 U/L (38-126); Anion Gap 9 mmol/L (8-16); Aspartate Amino Transferase 39 U/L (14-36); Bilirubin,Total 0.7 mg/dL (0.2-1.3); Blood Urea Nitrogen 26 mg/dL (7-17); Calcium 11.4 mg/dL (8.4-10.2); Carbon Dioxide 29 mmol/L (22-30); Chloride 99 mmol/L (98-107); Estimated CRCL calculation 31 ml/min; Estimated Glomerular Filt Rate 59; Glucose 147 mg/dL (65-110); Lipase 167 U/L (23-300); Potassium 4.2 mmol/L (3.4-5.0); Sodium 137 mmol/L (137-145)
--- NOTE | 2021-07-31 18:52 | ED.ABDPAIN ---
HPI - Abdominal Pain General Chief Complaint: Abdominal Pain Stated Complaint: Abdominal Pain Time Seen by Provider: 07/31/21 17:07 History of Present Illness HPI narrative: Patient is an 86-year-old female who presents ER with abdominal discomfort. Ongoing for the last 4 days. Last bowel movement on 07/27/2021. Since then she has been having abdominal cramping. She began having vomiting and belching over the last 24 hours. No improvement with laxative use. She feels like her abdomen has become more distended. No history of bowel obstruction. She has had a hysterectomy in the past. No known sick contacts. No diarrhea. Denies flatus. Related Data Home Medications Medication Instructions Recorded Confirmed pregabalin [Lyrica] 75 mg PO BID 01/14/20 01/03/21 Daily Fiber (psyllium-aspart) 1 packet PO DAILY 01/03/21 01/03/21 Probiotic 3 cell PO DAILY 01/03/21 01/03/21 aspirin 325 mg PO DAILY 01/03/21 01/03/21 calcium-vitamin C-vit D2-min 1 tablet PO DAILY 01/03/21 01/03/21 cod liver oil 1 cap PO DAILY 01/03/21 01/03/21 cyanocobalamin (vitamin B-12) 500 mcg PO DAILY 01/03/21 01/03/21 docusate sodium [Colace] 100 mg PO HS 01/03/21 01/03/21 flaxseed 1,000 mg PO DAILY 01/03/21 01/03/21 magnesium 250 mg PO DAILY 01/03/21 01/03/21 multivitamin, stress formula 1 tablet PO DAILY 01/03/21 01/03/21 polyethylene glycol 3350 [Miralax] 17 g PO DAILY 01/03/21 01/03/21 sennosides [Senokot] 8.6 mg PO DAILY 01/03/21 01/03/21 simvastatin 40 mg PO DAILY 01/03/21 01/03/21 aynyhij-hyig-vqepd-oreg-capryl 1 cap PO DAILY 01/03/21 01/03/21 Allergies Allergy/AdvReac Type Severity Reaction Status Date / Time cephalexin Allergy Unknown Unknown Verified 01/03/21 11:06 chlorpheniramine Allergy Unknown Unknown Verified 01/03/21 11:06 guaifenesin Allergy Unknown Unknown Verified 01/14/20 21:48 phenylephrine Allergy Unknown Unknown Verified 01/03/21 11:06 phenylpropanolamine Allergy Unknown Unknown Verified 01/14/20 21:48 prednisone Allergy Unknown Unknown Verified 01/14/20 21:48 pseudoephedrine Allergy Unknown Unknown Verified 01/03/21 11:06 sulfamethoxazole Allergy Unknown Unknown Verified 01/14/20 21:48 trimethoprim Allergy Unknown Unknown Verified 01/14/20 21:48 duloxetine AdvReac Nausea and Verified 01/14/20 21:48 Vomiting Review of Systems Review of Systems: All systems reviewed & are unremarkable except as noted in HPI and below Constitutional: Constitutional: Denies chills, Denies fever(s) and Denies weakness ENT: Denies nasal congestion and Denies sore throat Cardiovascular: Cardiovascular: Denies chest pain, Denies rapid heart rate and Denies radiating jaw, neck or arm pain Respiratory: Respiratory: Denies cough, Denies dyspnea and Denies wheezing Gastrointestinal: Gastrointestinal: Reports abdominal pain, Reports bloating, Denies diarrhea, Reports nausea and Reports vomiting PMFSH Past Medical History Medical History (Updated 07/31/21 @ 18:52 by Brian aGrcia MD) Fibromyalgia History of small bowel obstruction Hyperlipidemia Ovarian cancer Peripheral neuropathy Surgical History Surgical History (Updated 01/03/21 @ 22:28 by Sonal Carlos NP) H/O repair of left rotator cuff H/O: hysterectomy History of removal of Port-a-Cath History of tonsillectomy History of total right knee replacement Family History Family History Father Asthma Mother Family history of primary malignant neoplasm of liver Family history of lung cancer Family history of malignant neoplasm of brain Sibling Bone cancer Social History Social History (Updated 01/03/21 @ 22:32 by Sonal Carlos NP) Social History: the patient became many years ago. The patient had 2 children and 1 daughter of rye syndrome. The patient has 1 daughter left who is in contact with her. The patient is listed as a full code. She lives home alone is very active. The patient used to work as
[2021-07-31 19:25] VITALS: BP 121/68; PULSE 70; RESP 16; O2SAT 99
== END 2021-07-31 19:30 | disposition left against medical advice (07) ==
LOC: ANHED 18:55
PROVIDERS: Emergency Medicine; Emergency Provider Emergency Medicine; PCP Internal Medicine
DX: K56.690 Other partial intestinal obstruction (principal); M79.7 Fibromyalgia; E78.5 Hyperlipidemia, unspecified
CPT/HCPCS: 36415; 74177; 80053; 83690; 85025; 96374; 99284; J2405; Q9967

== ENCOUNTER 2021-08-01 09:36 | Emergency (ER) | payer MEDICARE, BC, SELFPAY ==
--- NOTE | ~2021-08-01 | XR_ITS ---
EXAMINATION: XR abdomen/kub 1V DATE: 08/01/2021 10:31 INDICATION: Small bowel obstruction. Abdominal pain. TECHNIQUE: A supine view of the abdomen on 2 radiographs was obtained. COMPARISON: CT abdomen and pelvis 07/31/2021 FINDINGS: There are no dilated loops of bowel. There is a moderate volume of stool in the colon. Surg ical clips overlie the abdomen. IMPRESSION: 1. Nonobstructive bowel gas pattern. Reviewed, dictated and finalized at location E. 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
[2021-08-01 09:41] VITALS: BP 107/62; PULSE 62; RESP 18; TEMP 36.6; O2SAT 99
[2021-08-01 10:05] LABS: Basophils Absolute Auto 0.1 K/mm3 (0.0-0.1); Basophils Percent Auto 0.9 % (0.2-1.2); Eosinophils Absolute Auto 0.3 K/mm3 (0-0.3); Eosinophils Percent Auto 4.1 % (0-4.4); Hematocrit 39.6 % (37.0-47.0); Hemoglobin 12.9 g/dL (12.0-15.0); Immature Granulocyte Absolute 0.01 K/mm3 (0.00-0.031); Immature Granulocyte Percent A 0.1 % (0-0.5); Lymphocytes Absolute Auto 2.39 K/mm3 (0.9-3.2); Lymphocytes Percent Auto 35.4 % (18.3-44.2); Mean Corpuscular HGB Conc 32.6 g/dl (32-36); Mean Corpuscular Hemoglobin 30.4 pg (26-34); Mean Corpuscular Volume 93.4 fl (80-100); Mean Platelet Volume 9.3 fl (7.4-10.4); Monocytes Absolute Auto 0.6 K/mm3 (0.1-0.6); Monocytes Percent Auto 8.6 % (2.6-8.5); Neutrophils Absolute Auto 3.4 K/mm3 (1.3-6.7); Neutrophils Percent Auto 50.9 % (45.5-73.1); Platelet Count Result 244 k/mm3 (150-375); Red Blood Count 4.24 M/mm3 (4.2-5.4); Red Cell Distribution Width 12.7 % (11.5-14.5); White Blood Count 6.8 K/mm3 (4.5-10.0)
[2021-08-01 10:12] LABS: Alanine Aminotransferase 26 U/L (4-35); Albumin Level 4.3 g/dL (3.5-5.1); Alkaline Phosphatase 61 U/L (38-126); Amylase 74 U/L (30-110); Anion Gap 5 mmol/L (8-16); Aspartate Amino Transferase 40 U/L (14-36); Bilirubin,Total 0.7 mg/dL (0.2-1.3); Blood Urea Nitrogen 25 mg/dL (7-17); Calcium 9.3 mg/dL (8.4-10.2); Carbon Dioxide 29 mmol/L (22-30); Chloride 102 mmol/L (98-107); Estimated CRCL calculation 24 ml/min; Estimated Glomerular Filt Rate 43; Glucose 84 mg/dL (65-110); Lipase 92 U/L (23-300); Potassium 4.4 mmol/L (3.4-5.0); Sodium 136 mmol/L (137-145)
[2021-08-01] MEDS: SODIUM CHLORIDE 0.9% IV 500 ML 999 ML IV CONT (10:30)
[2021-08-01 11:15] VITALS: BP 105/53; PULSE 65; RESP 16; O2SAT 97
--- NOTE | 2021-08-01 11:59 | ED.GENADULT ---
HPI - General Adult General Chief complaint: Abdominal Pain Stated complaint: abd pain, came back to be admitted Time Seen by Provider: 08/01/21 09:39 Source: patient Mode of arrival: ambulatory Limitations: no limitations History of Present Illness HPI narrative: Patient is 86-year-old female return to the emergency department after being seen yesterday and diagnosed with a small bowel. Patient reports that she generally takes multiple stool softeners daily MiraLAX, stool softener tablet, probiotic and fiber. She states she took an additional OTC laxative Friday and passed a small stool , but has not passed any stool since. She reports yesterday her abdomen was firm and distended. She reports that she had vomiting and nausea. Patient reports that she was offered admission yesterday but did not stay due to not having care for her dog. Patient reports that she found care for her dog so she returned to the emergency department for reevaluation. She reports that she has not had any nausea or vomiting. She reports that she has been able to keep down Jell-O and liquids. She states that her abdominal pain has resolved. Patient reports that she has passed a small amount of gas however she is still not passed any stool. Patient reports that she does feel improved from where she was seen yesterday. Related Data Home Medications Medication Instructions Recorded Confirmed pregabalin [Lyrica] 75 mg PO BID 01/14/20 01/03/21 Daily Fiber (psyllium-aspart) 1 packet PO DAILY 01/03/21 01/03/21 Probiotic 3 cell PO DAILY 01/03/21 01/03/21 aspirin 325 mg PO DAILY 01/03/21 01/03/21 calcium-vitamin C-vit D2-min 1 tablet PO DAILY 01/03/21 01/03/21 cod liver oil 1 cap PO DAILY 01/03/21 01/03/21 cyanocobalamin (vitamin B-12) 500 mcg PO DAILY 01/03/21 01/03/21 docusate sodium [Colace] 100 mg PO HS 01/03/21 01/03/21 flaxseed 1,000 mg PO DAILY 01/03/21 01/03/21 magnesium 250 mg PO DAILY 01/03/21 01/03/21 multivitamin, stress formula 1 tablet PO DAILY 01/03/21 01/03/21 polyethylene glycol 3350 [Miralax] 17 g PO DAILY 01/03/21 01/03/21 sennosides [Senokot] 8.6 mg PO DAILY 01/03/21 01/03/21 simvastatin 40 mg PO DAILY 01/03/21 01/03/21 vharwjp-ipmp-rxjqs-oreg-capryl 1 cap PO DAILY 01/03/21 01/03/21 Allergies Allergy/AdvReac Type Severity Reaction Status Date / Time cephalexin Allergy Unknown Unknown Verified 01/03/21 11:06 chlorpheniramine Allergy Unknown Unknown Verified 01/03/21 11:06 guaifenesin Allergy Unknown Unknown Verified 01/14/20 21:48 phenylephrine Allergy Unknown Unknown Verified 01/03/21 11:06 phenylpropanolamine Allergy Unknown Unknown Verified 01/14/20 21:48 prednisone Allergy Unknown Unknown Verified 01/14/20 21:48 pseudoephedrine Allergy Unknown Unknown Verified 01/03/21 11:06 sulfamethoxazole Allergy Unknown Unknown Verified 01/14/20 21:48 trimethoprim Allergy Unknown Unknown Verified 01/14/20 21:48 duloxetine AdvReac Nausea and Verified 01/14/20 21:48 Vomiting Review of Systems Review of Systems: CONSTITUTIONAL: Denies fever, chills, or sweats. EYES: Denies visual changes, redness, or discharge. ENT: Denies rhinorrhea, congestion, sore throat, or otalgia. CARDIOVASCULAR: Denies chest pain, palpitations, or edema. RESPIRATORY: Denies cough or dyspnea. GASTROINTESTINAL: Reports constipation Denies abdominal pain, nausea, vomiting today GENITOURINARY: Denies dysuria or hematuria. SKIN: Denies rash or itching. MUSCULOSKELETAL: Denies back pain, joint pain, or myalgia. NEUROLOGIC: Denies headache, numbness, dizziness, or weakness. PSYCHIATRIC: Denies anxiety or depression. [facility] Past Medical History Medical History (Updated 08/01/21 @ 12:58 by Gregory Delatorre PA-C) Fibromyalgia History of small bowel obstruction Hyperlipidemia Ovarian cancer Peripheral neuropathy Surgical History Surgical History (Updated 01/03/21 @ 22:28 by Sonal Carlos NP) H/O repair of left rotator cuff H/O: hysterectomy History of removal of Port-a-Ca
[2021-08-01 12:00] VITALS: BP 125/60; PULSE 72; RESP 14; TEMP 36.4; O2SAT 97
[2021-08-01 13:00] VITALS: PULSE 72; RESP 14; TEMP 36.3; O2SAT 97
== END 2021-08-01 13:12 | disposition home or self-care (01) ==
PROVIDERS: Physician Assistant; Emergency Provider Emergency Medicine; PCP Internal Medicine
DX: K56.600 Partial intestinal obstruction, unspecified as to cause (principal); K59.00 Constipation, unspecified; M79.7 Fibromyalgia; E78.5 Hyperlipidemia, unspecified
CPT/HCPCS: 36415; 74018; 80053; 82150; 83690; 85025; 99283; J7040

== ENCOUNTER 2021-08-03 13:58 | Emergency (ER) | payer MEDICARE, BC, SELFPAY ==
--- NOTE | ~2021-08-03 | CT_ITS ---
EXAMINATION: CT abdomen pelvis w con EXAM DATE: 08/03/2021 18:15 INDICATION: Abdominal pain . TECHNIQUE: Spiral CT of the abdomen and pelvis was performed following intravenous injection of 100 m L Omnipaque 350. Axial, coronal and sagittal images of the abdomen and pelvis were reviewed. The do se-length product (DLP) for this examination was 244.40 mGy-cm. The exposure was tailored according to patient size (auto mA exposure control), and iterative reconstruction (ASIR) was used as additiona l dose reduction technique. Comparison is made to prior examination from 07/31/2021. FINDINGS: The liver, spleen, adrenal glands and pancreas are unremarkable. There is hyperdense mater ial within the gallbladder, probably vicarious excretion of contrast from 3 days ago. There is no ne phrolithiasis or hydronephrosis. Bilateral renal cysts largest in the left measuring 4 cm. The uteru s is not identified and has likely been surgically resected. The bladder is unremarkable. There is no retroperitoneal or pelvic lymphadenopathy. There is mild scattered arteriosclerotic disease. There are no findings to suggest appendicitis. There is moderate sigmoid colonic diverticulosis. The re is no adjacent inflammatory change to suggest diverticulitis. The stomach and small bowel are unre markable, previously seen dilated small bowel has resolved. There is a 2.5 cm duodenal diverticulum. There is expected amount of colonic stool. No free intraperitoneal gas. The heart is normal in si ze. There are no pericardial or pleural effusions. The lung bases are unremarkable. Advanced thora columbar spondylosis and mild to moderate scoliosis. IMPRESSION: 1. Resolution of dilated small bowel on CT 3 days ago. 2. Moderate sigmoid diverticulosis. 3. No acute findings. Reviewed, dictated and finalized at location G. 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
[2021-08-03 14:36] VITALS: BP 146/83; PULSE 69; RESP 16; TEMP 36.6; O2SAT 100
[2021-08-03] MEDS: LACTATED RINGERS 1,000 ML 250 ML IV CONT (17:39)
--- NOTE | 2021-08-03 17:46 | ED.ABDPAIN ---
HPI - Abdominal Pain General Chief Complaint: Abdominal Pain Stated Complaint: constipation Time Seen by Provider: 08/03/21 17:13 Source: patient Mode of arrival: ambulatory Limitations: no limitations History of Present Illness HPI narrative: Patient is an 86-year-old female complaining of abdominal pain, diffuse, 7 out of 10, accompanied by nausea x1 week. Patient states that she has not had a bowel movement for 1 week. Patient states that she was seen here a few days ago for the same complaint was advised to be admitted but refused at that time since no one could take care of her dog. She was advised to return to the emergency room in 24 hours if symptoms persist. Patient states that she came back yesterday here in the ER for the follow-up, had an x-ray done and was advised liquid diet x24 hours and discharged home. Patient denies any chest pain, shortness of breath, vomiting, fever or chills. Related Data Home Medications Medication Instructions Recorded Confirmed pregabalin [Lyrica] 75 mg PO BID 01/14/20 01/03/21 Daily Fiber (psyllium-aspart) 1 packet PO DAILY 01/03/21 01/03/21 Probiotic 3 cell PO DAILY 01/03/21 01/03/21 aspirin 325 mg PO DAILY 01/03/21 01/03/21 calcium-vitamin C-vit D2-min 1 tablet PO DAILY 01/03/21 01/03/21 cod liver oil 1 cap PO DAILY 01/03/21 01/03/21 cyanocobalamin (vitamin B-12) 500 mcg PO DAILY 01/03/21 01/03/21 docusate sodium [Colace] 100 mg PO HS 01/03/21 01/03/21 flaxseed 1,000 mg PO DAILY 01/03/21 01/03/21 magnesium 250 mg PO DAILY 01/03/21 01/03/21 multivitamin, stress formula 1 tablet PO DAILY 01/03/21 01/03/21 polyethylene glycol 3350 [Miralax] 17 g PO DAILY 01/03/21 01/03/21 sennosides [Senokot] 8.6 mg PO DAILY 01/03/21 01/03/21 simvastatin 40 mg PO DAILY 01/03/21 01/03/21 gbnldio-upoc-funui-oreg-capryl 1 cap PO DAILY 01/03/21 01/03/21 Allergies Allergy/AdvReac Type Severity Reaction Status Date / Time cephalexin Allergy Unknown Unknown Verified 01/03/21 11:06 chlorpheniramine Allergy Unknown Unknown Verified 01/03/21 11:06 guaifenesin Allergy Unknown Unknown Verified 01/14/20 21:48 phenylephrine Allergy Unknown Unknown Verified 01/03/21 11:06 phenylpropanolamine Allergy Unknown Unknown Verified 01/14/20 21:48 prednisone Allergy Unknown Unknown Verified 01/14/20 21:48 pseudoephedrine Allergy Unknown Unknown Verified 01/03/21 11:06 sulfamethoxazole Allergy Unknown Unknown Verified 01/14/20 21:48 trimethoprim Allergy Unknown Unknown Verified 01/14/20 21:48 duloxetine AdvReac Nausea and Verified 01/14/20 21:48 Vomiting Review of Systems Review of Systems: All systems reviewed & are unremarkable except as noted in HPI and below Constitutional: Constitutional: Denies body ache(s), Denies chills, Denies excessive sweating, Denies fatigue, Denies fever(s), Denies headache(s), Denies lethargy, Denies malaise, Denies weakness and Denies weight loss Eyes: Eyes: Denies blurry vision, Denies change in vision and Denies loss of vision ENT: Denies dizziness, Denies ear discharge, Denies headache(s), Denies lip swelling, Denies epistaxis, Denies nasal congestion, Denies neck pain, Denies throat swelling and Denies tongue swelling Cardiovascular: Cardiovascular: Denies chest pain, Denies chest pain at rest, Denies chest pain with activity, Denies diaphoresis, Denies rapid heart rate, Denies edema, Denies irregular heart rhythm, Denies lightheadedness, Denies palpitations, Denies dyspnea and Denies dyspnea on exertion Respiratory: Respiratory: Denies chest congestion, Denies cough, Denies hemoptysis, Denies dyspnea and Denies dyspnea on exertion Gastrointestinal: Gastrointestinal: Denies melena, Denies hematochezia, Denies diarrhea, Denies vomiting and Denies hematemesis Musculoskeletal: Musculoskeletal: Denies abnormal gait, Denies deformity, Denies joint swelling, Denies limited range of motion, Denies neck pain and Denies numbness Neurologic: Denies Abnormal speech present, Denies abnormal gait, Denie
[2021-08-03 17:48] LABS: Basophils Percent Auto 0.7 % (0.2-1.2); Eosinophils Absolute Auto 0.1 K/mm3 (0-0.3); Eosinophils Percent Auto 2.2 % (0-4.4); Hemoglobin 12.3 g/dL (12.0-15.0); Immature Granulocyte Absolute 0.01 K/mm3 (0.00-0.031); Immature Granulocyte Percent A 0.2 % (0-0.5); Lymphocytes Absolute Auto 2.67 K/mm3 (0.9-3.2); Mean Corpuscular HGB Conc 33.2 g/dl (32-36); Mean Corpuscular Hemoglobin 30.7 pg (26-34); Mean Corpuscular Volume 92.3 fl (80-100); Mean Platelet Volume 9.4 fl (7.4-10.4); Monocytes Absolute Auto 0.5 K/mm3 (0.1-0.6); Monocytes Percent Auto 8.6 % (2.6-8.5); Neutrophils Absolute Auto 2.2 K/mm3 (1.3-6.7); Neutrophils Percent Auto 40.3 % (45.5-73.1); Platelet Count Result 225 k/mm3 (150-375); Red Blood Count 4.01 M/mm3 (4.2-5.4); Red Cell Distribution Width 12.1 % (11.5-14.5); White Blood Count 5.6 K/mm3 (4.5-10.0)
[2021-08-03 17:58] LABS: Lactic Acid Reflex 0.9 mmol/L (0.7-2.1); Prothrombin Time 13.5 Seconds (11.1-14.7)
[2021-08-03 17:59] LABS: Alanine Aminotransferase 41 U/L (4-35); Albumin Level 4.3 g/dL (3.5-5.1); Alkaline Phosphatase 61 U/L (38-126); Anion Gap 3 mmol/L (8-16); Aspartate Amino Transferase 40 U/L (14-36); Bilirubin,Total 0.6 mg/dL (0.2-1.3); Blood Urea Nitrogen 15 mg/dL (7-17); Calcium 9.6 mg/dL (8.4-10.2); Carbon Dioxide 28 mmol/L (22-30); Chloride 106 mmol/L (98-107); Estimated CRCL calculation 35 ml/min; Estimated Glomerular Filt Rate > 60; Glucose 87 mg/dL (65-110); Lipase 75 U/L (23-300); Partial Thromboplastin Time 29.5 SECONDS (22.3-36.8); Sodium 137 mmol/L (137-145)
--- NOTE | 2021-08-03 19:21 | PC.NURSE ---
Report received from PARDEEP Goodrich. Assumed care of patient at this time.
[2021-08-03] MEDS: MAGNESIUM CITRATE 300 ML BTL 150 ML PO (19:56)
[2021-08-03] MEDS: polyethylene glycoL 3350 17 GM POWD.PACK PO (20:14)
[2021-08-03] MEDS: DOCUSATE SODIUM 100 MG CAPSULE PO (20:14)
--- NOTE | 2021-08-03 20:27 | PC.NURSE ---
Patient dropped stool softener pill on floor, called pharmacy to have them send up another.
== END 2021-08-03 20:50 | disposition home or self-care (01) ==
PROVIDERS: Emergency Provider Emergency Medicine; PCP Internal Medicine
DX: K59.00 Constipation, unspecified (principal); R10.9 Unspecified abdominal pain; E78.5 Hyperlipidemia, unspecified; M79.7 Fibromyalgia; G62.9 Polyneuropathy, unspecified; Z85.41 Personal history of malignant neoplasm of cervix uteri; Z79.82 Long term (current) use of aspirin; Z96.651 Presence of right artificial knee joint; K57.30 Diverticulosis of large intestine without perforation or abscess without bleeding
CPT/HCPCS: 36415; 74177; 80053; 83605; 83690; 85025; 85610; 85730; 96361; 96374; 99284; A9270; J0131; J7120; Q9967

== ENCOUNTER 2021-12-03 14:45 | Outpatient (CLI) | payer MEDICARE, BC, SELFPAY ==
--- NOTE | ~2021-12-03 | XR_ITS ---
XR shoulder LT min 2V DATE: 12/03/2021 15:13 INDICATION: Left anterior shoulder pain following a fall one week ago TECHNIQUE: 4 views COMPARISON: 04/08/2016 left shoulder FINDINGS: There is joint space narrowing and periarticular spurring at the glenohumeral joint consist ent with moderately severe osteoarthritis. There is chronic rotator cuff atrophy, the humeral head abutting the undersurface of the acromion pro cess. No recent fracture or dislocation, periosteal reaction or bone destruction is detected. Osteopenia. 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
== END 2021-12-03 14:46 | disposition home or self-care (01) ==
LOC: ANHIMG 14:53
PROVIDERS: PCP Family Medicine; Visit Provider Family Medicine
DX: M85.812 Other specified disorders of bone density and structure, left shoulder (principal); M19.012 Primary osteoarthritis, left shoulder
CPT/HCPCS: 73030

== ENCOUNTER 2021-12-13 16:00 | Inpatient (IN) | payer MEDICARE, BC, SELFPAY ==
[2021-12-13] VITALS (17 sets, daily range): BP systolic 134–168; BP diastolic 78–95; PULSE 69–97; RESP 15–31; TEMP 36–36.2; O2SAT 87–100
--- NOTE | ~2021-12-13 | XR_ITS ---
XR abdomen NG/feed tube insert DATE: 12/13/2021 18:20 INDICATION: NG tube placement TECHNIQUE: Portable supine AP view on 12/13/2021 at 1817 hours COMPARISON: None FINDINGS: NG tube is situated near the diaphragmatic hiatus, with the proximal port in the lower thor ax. Tube advancement is recommended. There is some gas distended small bowel segments. Postoperative change is noted overlying the right lower quadrant. Severe degenerative changes and scoliosis of the thoracic and lumbar spine. IMPRESSION: NG tube near diaphragmatic hiatus with proximal side port in the lower chest; advancement is recommended Reviewed, dictated and finalized at Location A. Reviewed, dictated and finalized at location A. IMPRESSION: NG tube near diaphragmatic hiatus with proximal side port in the lo wer chest; advancement is recommended
--- NOTE | ~2021-12-13 | CT_ITS ---
EXAMINATION: CT abdomen pelvis wo con DATE: 12/13/2021 17:06 INDICATION: Right flank pain. Nausea and vomiting. TECHNIQUE: Computed tomography (CT) of the abdomen and pelvis was performed without intravenous contr ast. Automated exposure control and iterative reconstruction technique were employed. The dose-length product was 357.06 mGy-cm. COMPARISON: CT abdomen and pelvis 08/03/2021 FINDINGS: The visualized portions of the lung bases demonstrate mild scarring in right paraspinal rig ht lower lobe. No pleural effusion. The heart size is normal. There are coronary artery calcification s. No pericardial effusion. There is a small sliding hiatal hernia. The liver and gallbladder are nor mal. Calcifications in the spleen are consistent with old granulomatous disease. The pancreas and adr enal glands are normal. There are cysts in the kidneys measuring up to 4.0 cm on the left. There is d iverticulosis of the colon without evidence of diverticulitis. There are multiple dilated loops of sm all bowel with focal transition point in the mid abdomen. There is mesenteric edema in the area of th e transition point. There are no pathologically enlarged lymph nodes. There is no free intraperitonea l fluid. There is severe thoracolumbar spondylosis. IMPRESSION: 1. Small bowel obstruction. Reviewed, dictated and finalized at location B. IMPRESSION: 1. Small bowel obstruction.
--- NOTE | ~2021-12-13 | XR_ITS ---
EXAMINATION: XR abdomen obstructive series DATE: 12/17/2021 13:58 INDICATION: Small bowel obstruction. TECHNIQUE: Upright and supine views of the abdomen were obtained. COMPARISON: Abdomen radiograph 12/16/2021, CT abdomen and pelvis 12/13/2021 FINDINGS: There are no dilated loops of bowel. There is a small volume of stool in the colon. No free intraperitoneal gas. There are surgical clips overlying the abdomen. IMPRESSION: 1. Nonobstructive bowel gas pattern. Reviewed, dictated and finalized at location A.
--- NOTE | ~2021-12-13 | XR_ITS ---
EXAMINATION: XR sm bowel follow through WS DATE: 12/18/2021 09:34 INDICATION: Small bowel obstruction TECHNIQUE: Contract Specialist radiograph(s) of the abdomen was/were obtained. Oral contrast was administered, and sequential radiographs of the abdomen were obtained until oral contrast was noted to be in the colon . Fluoroscopy was not performed. COMPARISON: None. FINDINGS: No dilated loops of bowel are identified on the district recruiter radiograph. The bowel gas pattern is normal. There are multiple phleboliths of the pelvis. There is severe lumbar spondylosis. Punctate le ft upper quadrant calcifications are consistent with healed granulomatous disease of the spleen Trans it time from the stomach to proximal colon was approximately 15 minutes. Contrast is seen in the rect um in 30 minutes. There is normal caliber and mucosal fold pattern throughout the small bowel. Termin al ileum is normal. IMPRESSION: 1. Unremarkable small bowel follow-through. No small bowel obstruction. Reviewed, dictated and finalized at location A.
--- NOTE | ~2021-12-13 | XR_ITS ---
XR abdomen obstructive series DATE: 12/15/2021 07:51 INDICATION: Small bowel obstruction TECHNIQUE: Portable supine AP views on 12/15/2021 0743 and 0745 hours COMPARISON: 12/13/2021 KUB FINDINGS: NG tube overlies the right upper quadrant, likely within the distal stomach or proximal duo denum. Postoperative changes of the abdomen. No bowel dilatation is evident on the current radiograph. The psoas shadows are intact. No visceromeg sabrina. Scoliosis and prominent degenerative changes of the thoracic and lumbar spine. IMPRESSION: NG tube in distal stomach or proximal duodenum Postoperative change of the abdomen No bowel dilatation is evident Reviewed, dictated and finalized at Location A. Reviewed, dictated and finalized at location A.
--- NOTE | ~2021-12-13 | XR_ITS ---
XR abdomen/kub 1V DATE: 12/16/2021 12:52 INDICATION: Abdominal pain TECHNIQUE: Portable supine AP views COMPARISON: 12/15/2021 obstructive series FINDINGS: NG tube is been removed since 12/15/2021. There is moderate gaseous distention of the stomach. No abnormal dilatation of the small or large bow el. Postoperative change of the abdomen Severe degenerative disc disease of the thoracic and lumbar spine. Rotatory levoscoliosis of the lumb ar spine. IMPRESSION: Postoperative changes No bowel obstruction is evident Severe degenerative change of the thoracic and lumbar spine, rotatory levoscoliosis of lumbar spine Reviewed, dictated and finalized at Location A. Reviewed, dictated and finalized at location A. IMPRESSION: Postoperative changes No bowel obstruction is evident Severe degenerative change of the thoracic and lumbar spine, rotatory levoscoli osis of lumbar spine
--- NOTE | 2021-12-13 16:26 | ECG_ITS ---
Measurements Intervals [place] Rate: 90 P: 71 CA: 168 QRS: 67 QRSD: 87 T: 47 QT: 366 QTc: 448 Interpretive Statements SINUS RHYTHM WITH OCCASIONAL SUPRAVENTRICULAR PREMATURE COMPLEXES NONSPECIFIC ST & T-WAVE ABNORMALITY COMPARED TO ECG 01/03/2021 11:00:47 HEART RATE IS INCREASED AND PACS ARE NOTED Electronically Signed On 12-14-2021 14:29:35 CDT by Mor Tang M.D.
--- NOTE | 2021-12-13 16:26 | ED.ABDPAIN ---
HPI - Abdominal Pain General Chief Complaint: Abdominal Pain Stated Complaint: abd pain Time Seen by Provider: 12/13/21 16:11 History of Present Illness HPI narrative: 86-year-old female presents to the emergency room for abdominal pain that started around 9:00 this morning. She has been having some cold sweats. She says that the pain this morning was not too bad but describes it as all over her abdomen. She went and had lunch with a friend and after that started having vomiting. She has had 4 emesis since 1 PM. She is also reporting right flank pain that seems to be coming in waves. Denies any fever. She has had 2 normal bowel movements today. No chest pain or shortness of breath. Still has her gallbladder and appendix. She has a history of diverticulosis but has never had diverticulitis. Related Data Home Medications Medication Instructions Recorded Confirmed pregabalin 75 mg capsule (Lyrica) 75 mg PO BID 01/14/20 09/04/21 cyanocobalamin (vitamin B-12) 500 500 mcg PO DAILY 01/03/21 09/04/21 mcg tablet docusate sodium 100 mg capsule 100 mg PO HS 01/03/21 09/04/21 (Colace) lactobacillus combination no.4 3 3 cell PO DAILY 01/03/21 09/04/21 billion cell capsule (Probiotic) magnesium 250 mg tablet 250 mg PO DAILY 01/03/21 09/04/21 multivitamin, stress formula 1 tablet PO DAILY 01/03/21 09/04/21 polyethylene glycol 3350 17 17 g PO DAILY 01/03/21 09/04/21 gram/dose oral powder (Miralax) psyllium husk (aspartame) 3 gram 1 packet PO DAILY 01/03/21 09/04/21 oral powder packet (Daily Fiber (psyllium-aspartame)) tumeric 100 mg-ge 150 mg-olive 1 cap PO DAILY 01/03/21 09/04/21 50 mg-oreg 150 mg-caprylate capsule ascorbate calcium (vitamin C) 500 500 mg PO DAILY 09/11/21 mg tablet calcium carbonate 600 mg-vitamin 2 tablet PO DAILY 09/11/21 D3 5 mcg (200 unit) tablet (Calcium 600 + D(3)) cholecalciferol (vitamin D3) 50 50 mcg PO DAILY 09/11/21 mcg (2,000 unit) capsule (Vitamin D3) Allergies Allergy/AdvReac Type Severity Reaction Status Date / Time cephalexin Allergy Unknown Unknown Verified 12/13/21 16:46 chlorpheniramine Allergy Unknown Unknown Verified 12/13/21 16:46 guaifenesin Allergy Unknown Unknown Verified 12/13/21 16:46 phenylephrine Allergy Unknown Unknown Verified 12/13/21 16:46 phenylpropanolamine Allergy Unknown Unknown Verified 12/13/21 16:46 prednisone Allergy Unknown Unknown Verified 12/13/21 16:46 pseudoephedrine Allergy Unknown Unknown Verified 12/13/21 16:46 sulfamethoxazole Allergy Unknown Unknown Verified 12/13/21 16:46 trimethoprim Allergy Unknown Unknown Verified 12/13/21 16:46 duloxetine AdvReac Nausea and Verified 12/13/21 16:46 Vomiting Review of Systems Review of Systems: CONSTITUTIONAL: Denies fever, chills, or sweats. EYES: Denies visual changes, redness, or discharge. ENT: Denies rhinorrhea, congestion, sore throat, or otalgia. CARDIOVASCULAR: Denies chest pain, palpitations, or edema. RESPIRATORY: Denies cough or dyspnea. GASTROINTESTINAL: as per HPI GENITOURINARY: Denies dysuria or hematuria. SKIN: Denies rash or itching. MUSCULOSKELETAL: Denies back pain, joint pain, or myalgia. NEUROLOGIC: Denies headache, numbness, dizziness, or weakness. PSYCHIATRIC: Denies anxiety or depression. [facility] Past Medical History Medical History Cervicalgia Chronic constipation Fibromyalgia Hereditary and idiopathic neuropathy History of small bowel obstruction Hyperlipidemia Ovarian cancer Peripheral neuropathy SBO (small bowel obstruction) Scalp itch Surgical History Surgical History H/O repair of left rotator cuff H/O: hysterectomy History of removal of Port-a-Cath History of tonsillectomy History of total right knee replacement Family History Family History Father Asthma Diabetes
[2021-12-13] MEDS: ONDANSETRON INJ 4 MG/2 ML VIAL IV PUSH (16:47)
[2021-12-13] MEDS: fentaNYL CITRATE INJ (*CRX) 100 MCG/2 ML VIAL 50 MCG IV PUSH (16:49)
--- NOTE | 2021-12-13 16:59 | PC.NURSE ---
Patient off unit to CT.
[2021-12-13 17:01] LABS: Basophils Absolute Auto 0.1 K/mm3 (0.0-0.1); Basophils Percent Auto 0.5 % (0.2-1.2); Eosinophils Percent Auto 0.1 % (0-4.4); Hematocrit 42.5 % (37.0-47.0); Hemoglobin 14.2 g/dL (12.0-15.0); Immature Granulocyte Absolute 0.02 K/mm3 (0.00-0.031); Immature Granulocyte Percent A 0.2 % (0-0.5); Lymphocytes Absolute Auto 1.35 K/mm3 (0.9-3.2); Lymphocytes Percent Auto 12.5 % (18.3-44.2); Mean Corpuscular HGB Conc 33.4 g/dl (32-36); Mean Corpuscular Hemoglobin 30.1 pg (26-34); Mean Corpuscular Volume 90.2 fl (80-100); Mean Platelet Volume 9.4 fl (7.4-10.4); Monocytes Absolute Auto 0.6 K/mm3 (0.1-0.6); Monocytes Percent Auto 5.8 % (2.6-8.5); Neutrophils Absolute Auto 8.8 K/mm3 (1.3-6.7); Neutrophils Percent Auto 80.9 % (45.5-73.1); Platelet Count Result 294 k/mm3 (150-375); Red Blood Count 4.71 M/mm3 (4.2-5.4); Red Cell Distribution Width 12.3 % (11.5-14.5); White Blood Count 10.8 K/mm3 (4.5-10.0)
[2021-12-13 17:13] LABS: Alanine Aminotransferase 19 U/L (6-35); Alkaline Phosphatase 83 U/L (38-126); Anion Gap 9 mmol/L (8-16); Aspartate Amino Transferase 36 U/L (14-36); Bilirubin,Total 0.5 mg/dL (0.2-1.3); Blood Urea Nitrogen 27 mg/dL (7-17); Calcium 10.2 mg/dL (8.4-10.2); Carbon Dioxide 28 mmol/L (22-30); Chloride 103 mmol/L (98-107); Estimated Glomerular Filt Rate > 60; Glucose 147 mg/dL (65-110); Lipase 108 U/L (23-300); Sodium 140 mmol/L (137-145)
[2021-12-13 17:23] LABS: Troponin I < 0.012 ng/mL (0.000-0.034)
[2021-12-13] MEDS: BENZOCAINE/TETRACAINE SPRAY (*SP) 56 ML AEROSOL 1 SPRAY (18:31)
--- NOTE | 2021-12-13 19:22 | PC.NURSE ---
Patient report given to PARDEEP Santana. All questions answered and care of patient transferred.
--- NOTE | 2021-12-13 19:24 | PM.IMHP ---
H&P: HPI History of Present Illness Date/Time: 12/13/21 19:24 Chief Complaint: Abdominal pain Narrative: This is an 86-year-old female with past medical history significant for fibromyalgia, chronic constipation, idiopathic neuropathy, peripheral neuropathy. Patient presents to the emergency room due to abdominal pain that started in his early in the morning patient was able to had breakfast and things seem to be okay prior has been her usual state of health. Pain was colicky as well patient had episodes of nausea and vomiting and cramps, pain continues throughout the day she was unable to eat anything else ultimately decided to come to the emergency room after did not go away got worse and is diffusely localized patient has not been able to pass gas had bowel movement her usual in the morning prior to event, patient denies any fevers, chills, rigors, cough, sputum production. In emergency room NG was placed. Preliminary workup was significant for CT of abdomen and pelvis for small-bowel obstruction. Patient is been admitted for further evaluation, management and treatment. Review of Systems Review of Systems: Abdominal pain, abdominal distension, constipation, nausea and vomiting. Constitutional: Constitutional: Denies chills, Denies fever(s) and Denies night sweats Eyes: Eyes: Denies change in vision ENT: Denies dysphagia, Denies vertigo, Denies dizziness and Denies odynophagia Cardiovascular: Cardiovascular: Denies chest pain, Denies irregular heart rhythm, Denies lightheadedness, Denies palpitations, Denies dyspnea on exertion and Denies paroxysmal nocturnal dyspnea Respiratory: Respiratory: Denies cough and Denies dyspnea Gastrointestinal: Gastrointestinal: Reports abdominal pain, Reports GI cramping, Denies dyspepsia, Denies heartburn, Reports nausea and Reports vomiting Genitourinary: Genitourinary: Denies dysuria Musculoskeletal: Musculoskeletal: Reports back pain and Denies arthralgias Integumentary/Breasts: Skin/Breast: Denies rash Psychiatric: Psychiatric: Reports no additional psychiatric complaints and Reports as per HPI Endocrine: Endocrine: Denies cold intolerance, Denies flushing, Denies heat intolerance, Denies polyphagia, Denies polydipsia, Denies polyuria and Denies palpitations Hematologic/Lymphatic: Hematologic/Lymphatic: Reports no additional hematologic/lymphatic complaints and Reports as per HPI Allergic/Immunologic: Allergic/Immunologic: Reports no additional allergic/immunologic complaints and Reports as per HPI PMFSH Past Medical History Medical History Cervicalgia Chronic constipation Fibromyalgia Hereditary and idiopathic neuropathy History of small bowel obstruction Hyperlipidemia Ovarian cancer Peripheral neuropathy SBO (small bowel obstruction) Scalp itch Surgical History Surgical History (Updated 12/14/21 @ 08:15 by Braden Narvaez DO) H/O repair of left rotator cuff H/O: hysterectomy History of bilateral oophorectomy History of removal of Port-a-Cath History of tonsillectomy History of total right knee replacement Family History Family History Father Asthma Diabetes mellitus Mother Lung cancer Liver cancer Brain cancer Social History Social History Social History: the patient became many years ago. The patient had 2 children and 1 daughter of rye syndrome. The patient has 1 daughter left who is in contact with her. The patient is listed as a full code. She lives home alone is very active. 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 lifelong nonsmoker Smoking status: Never smoker Second hand tobacco smoke exposure: No Alcohol intake: former Substance use: never Substance use type: does not use Gender identity (if verbalized by the patient)
--- NOTE | 2021-12-13 21:17 | ADMGEN ---
This patient, Dawna Cruz, was admitted to Medical Room 249-01. Patient/family oriented to hospital policies and general routines including ID bracelet, bed and alarms, visiting hours, pain management, procedures, bathroom and other care routines, personal items, smoking policy, room service/diet, and visiting hours. Information on how to activate the Rapid Response Team has been discussed. Patient/Family are encouraged to report perceived risks to care and to ask questions if they do not understand what they are told or what they should do.
[2021-12-13] MEDS: SODIUM CHLORIDE 0.9% IV 1,000 ML 125 ML IV CONT (21:19)
[2021-12-14] VITALS: BP 162/83; PULSE 90; RESP 20; TEMP 35.7; O2SAT 99
[2021-12-14 03:54] VITALS: BP 144/63; PULSE 80; RESP 20; TEMP 35.8; O2SAT 97
[2021-12-14 04:04] VITALS: BMI 20.9
[2021-12-14] MEDS: SODIUM CHLORIDE 0.9% IV 1,000 ML 125 ML IV CONT ×2 (05:21→16:30)
--- NOTE | 2021-12-14 08:08 | PM.CNGS ---
Assessment and Plan Assessment and plan (1) Small bowel obstruction: Code(s): K56.609 - Unspecified intestinal obstruction, unspecified as to partial versus complete obstruction Status: Acute Assessment and Plan: I have reviewed the CT and discussed the findings with the patient. She has evidence of a small-bowel obstruction. Patient's symptoms are much improved since NG tube was placed yesterday. Will continue NG tube to low intermittent suction and await return of bowel function. Will give patient a Dulcolax suppository today and plan for a repeat obstructive series tomorrow. Could consider a Gastrografin small-bowel follow-through if she is not showing any sign of bowel function returned. Discussed that if patient does have a complete obstruction and this does not resolve, she will require exploratory surgery. Patient voiced her understanding. (2) Chronic constipation: Code(s): K59.09 - Other constipation Status: Acute History of Present Illness Consult details Consult date: 12/14/21 Reason for consult: other ( Small-bowel obstruction) Requesting physician: Adán Hines MD Narrative: this is an 86-year-old woman who I am asked to see for a possible small-bowel obstruction. The patient presented to the emergency department yesterday with complaints of abdominal pain, bloating, nausea, and vomiting. She states that the pain started yesterday while walking. She does not recall feeling poorly prior to this. She did have 2 bowel movements yesterday. She is not passing any flatus currently. She does not recall eating anything that could have caused this. Patient has had multiple problems like this in the past. She was recently admitted for constipation or a partial small bowel obstruction about 3 months ago but this resolved without requiring NG tube placement. She was placed on laxatives to help prevent constipation at that time. The patient also had an episode small-bowel obstruction about 6 years ago. This also resolved without requiring surgery. 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 She did require chemotherapy, but did not require radiation. Patient states that her pain has resolved since NG tube was placed yesterday. Her abdomen is no longer distended and she is not feeling nauseated. She has not had a bowel movement since being admitted and is not passing flatus. Review of Systems Review of Systems: All systems reviewed & are unremarkable except as noted in HPI and below Constitutional: Constitutional: Denies chills and Denies fever(s) Eyes: Eyes: Denies change in vision ENT: Denies hearing loss, Denies neck pain and Denies sore throat Cardiovascular: Cardiovascular: Denies chest pain and Denies dyspnea Respiratory: Respiratory: Denies cough, Denies dyspnea and Denies wheezing Genitourinary: Genitourinary: Denies hematuria and Denies dysuria Musculoskeletal: Musculoskeletal: Denies arthralgias, Denies joint swelling and Denies neck pain Allergic/Immunologic: Allergic/Immunologic: Denies wheezing [facility] Past Medical History Medical History Cervicalgia Chronic constipation Fibromyalgia Hereditary and idiopathic neuropathy History of small bowel obstruction Hyperlipidemia Ovarian cancer Peripheral neuropathy SBO (small bowel obstruction) Scalp itch Surgical History Surgical History (Updated 12/14/21 @ 08:15 by Braden Narvaez DO) H/O repair of left rotator cuff H/O: hysterectomy History of bilateral oophorectomy History of removal of Port-a-Cath History of tonsillectomy History of total right knee replacement Family History Family History Father Asthma Diabetes mellitus Mother Lung cancer Liver cancer Brain cancer Social History Social History (Reviewed 12/14/21
[2021-12-14] MEDS: ENOXAPARIN 40 MG/0.4 ML SYRINGE SUB-Q (08:22)
[2021-12-14] MEDS: BISACODYL 10 MG SUPPOSITORY RECTAL (08:23)
[2021-12-14 10:00] VITALS: BP 139/75; PULSE 71; RESP 16; TEMP 36.3; O2SAT 98
[2021-12-14 14:00] VITALS: BP 151/71; PULSE 89; RESP 16; TEMP 36.3; O2SAT 99
--- NOTE | 2021-12-14 15:27 | PM.IMPN ---
Progress Note: A&P Assessment and Plan (1) Acute generalized abdominal pain: Code(s): R10.84 - Generalized abdominal pain Status: Acute (2) Small bowel obstruction: Code(s): K56.609 - Unspecified intestinal obstruction, unspecified as to partial versus complete obstruction Status: Acute Assessment and Plan: 12/14/2021 interval history: patient with small bowel obstruction currently NG tube low intermittent suction for decompression, awaiting return of the bowel function, stable not passing any gas however abdominal pain is better compared to when she arrived, seen by surgery service recommending continue present management and may have Gastrografin a small follow-through to further evaluate tomorrow, will continue present management and further recommendation to follow. (3) Nausea & vomiting: Code(s): R11.2 - Nausea with vomiting, unspecified Status: Acute Assessment and Plan: remains clinically stable (4) Fibromyalgia: Code(s): M79.7 - Fibromyalgia Status: Chronic Assessment and Plan: will continue home regimen and patient able to take p.o. medication (5) Peripheral neuropathy: Qualifiers: Peripheral neuropathy type: idiopathic neuropathy, unspecified Qualified Code(s): G60.9 - Hereditary and idiopathic neuropathy, unspecified Code(s): G62.9 - Polyneuropathy, unspecified Status: Chronic Assessment and Plan: remains clinically stable will monitor Subjective Date/time seen: 12/14/21 15:27 ED-HPI 86-year-old female presents to the emergency room for abdominal pain that started around 9:00 this morning.? She has been having some cold sweats.? She says that the pain this morning was not too bad but describes it as all over her abdomen.? She went and had lunch with a friend and after that started having vomiting.? She has had 4 emesis since 1 PM.? She is also reporting right flank pain that seems to be coming in waves.? Denies any fever.? She has had 2 normal bowel movements today.? No chest pain or shortness of breath.? Still has her gallbladder and appendix.? She has a history of diverticulosis but has never had diverticulitis. 12/14/2021 interval history: patient with small bowel obstruction currently NG tube low intermittent suction for decompression, awaiting return of the bowel function, stable not passing any gas however abdominal pain is better compared to when she arrived, seen by surgery service recommending continue present management and may have Gastrografin a small follow-through to further evaluate tomorrow, will continue present management and further recommendation to follow. Review of Systems Review of Systems: All systems reviewed & are unremarkable except as noted in HPI and below Exam Narrative: Patient is comfortable, NAD HEENT: eyes are clear and none icteric LUNGS: normal respiratory effort ABD: bowel sounds affect diffusely tender Lower extremities: no edema SKIN: nonjaundiced Neuro: grossly intact. Objective Data Vital Signs Vital Signs: Vital Signs - 24 hr 12/13/21 16:01 12/13/21 17:12 12/13/21 17:13 Temperature 97.1 F L Pulse Rate 70 91 69 Respiratory Rate 20 29 H 21 H Blood Pressure 151/95 H 159/87 H Pulse Oximetry 98 98 98 Oxygen Delivery Room Air 12/13/21 17:15 12/13/21 17:16 12/13/21 17:30 Temperature Pulse Rate 88 88 84 Respiratory Rate 26 H 27 H 15 Blood Pressure 152/91 H Pulse Oximetry 98 98 98 Oxygen Delivery 12/13/21 17:31 12/13/21 17:50 12/13/21 18:00 Temperature Pulse Rate 90 77 89 Respiratory Rate 31 H 25 H 18 Blood Pressure 168/94 H Pulse Oximetry 94 87 L 97 Oxygen Delivery 12/13/21 18:15 12/13/21 18:30 12/13/21 18:46 Temperature Pulse Rate 88 86 88 Respiratory Rate 15 19 17 Blood Pressure Pulse Oximetry 97 98 98 Oxygen Delivery 12/13/21 19:00 12/13/21 19:01 12/13/21 19:02 Temperature Pulse Rate 83 80 8
[2021-12-14 19:36] VITALS: BP 156/67; PULSE 69; RESP 20; TEMP 36.4; O2SAT 98
[2021-12-15 05:09] VITALS: BP 176/80; PULSE 84; RESP 18; TEMP 35.8; O2SAT 97
[2021-12-15] MEDS: SODIUM CHLORIDE 0.9% IV 1,000 ML 125 ML IV CONT ×3 (05:57→16:33)
[2021-12-15 06:00] VITALS: BP 162/69
[2021-12-15] MEDS: MORPHINE SULFATE (*CRX) 2 MG/ML INJ IV PUSH ×2 (07:57→10:06)
[2021-12-15 09:58] LABS: Hematocrit 39.5 % (37.0-47.0); Hemoglobin 12.5 g/dL (12.0-15.0); Mean Corpuscular HGB Conc 31.6 g/dl (32-36); Mean Corpuscular Hemoglobin 30.2 pg (26-34); Mean Corpuscular Volume 95.4 fl (80-100); Mean Platelet Volume 9.9 fl (7.4-10.4); Platelet Count Result 238 k/mm3 (150-375); Red Blood Count 4.14 M/mm3 (4.2-5.4); Red Cell Distribution Width 12.7 % (11.5-14.5); White Blood Count 7.5 K/mm3 (4.5-10.0)
[2021-12-15] MEDS: ONDANSETRON INJ 4 MG/2 ML VIAL IV PUSH (10:06)
[2021-12-15 10:11] LABS: Anion Gap 5 mmol/L (8-16); Blood Urea Nitrogen 20 mg/dL (7-17); Calcium 8.3 mg/dL (8.4-10.2); Carbon Dioxide 35 mmol/L (22-30); Chloride 106 mmol/L (98-107); Estimated CRCL calculation 35 ml/min; Estimated Glomerular Filt Rate > 60; Glucose 79 mg/dL (65-110); Potassium 3.2 mmol/L (3.4-5.0); Sodium 146 mmol/L (137-145)
--- NOTE | 2021-12-15 10:30 | PM.IMPN ---
Progress Note: A&P Assessment and Plan (1) Small bowel obstruction: Code(s): K56.609 - Unspecified intestinal obstruction, unspecified as to partial versus complete obstruction Status: Acute Assessment and Plan: Admit to regular medical NPO NG to low intermittent suction IV fluids Intake and output daily General surgery consult Supportive care ED-HPI?86-year-old female presents to the emergency room for abdominal pain that started around 9:00 this morning.? She has been having some cold sweats.? She says that the pain this morning was not too bad but describes it as all over her abdomen.? She went and had lunch with a friend and after that started having vomiting.? She has had 4 emesis since 1 PM.? She is also reporting right flank pain that seems to be coming in waves.? Denies any fever.? She has had 2 normal bowel movements today.? No chest pain or shortness of breath.? Still has her gallbladder and appendix.? She has a history of diverticulosis but has never had diverticulitis. 12/14/2021 interval history:?patient with small bowel obstruction currently NG tube low intermittent suction for decompression, awaiting return of the bowel function,? stable not passing any gas however abdominal pain is better compared to when she arrived, seen by surgery service recommending continue present management and may have Gastrografin a small follow-through to further evaluate tomorrow, will continue present management and further recommendation to follow. 12/15/2021 interval history:?patient with small bowel obstruction currently NG tube low intermittent suction for decompression, awaiting return of the bowel function,? today patient had 2 small bowel movements and abdominal x-ray showed resolution of small-bowel obstruction, will discuss with General surgery to clamp the NG tube and monitor, abdominal pain is better compared to when she arrived, seen by surgery service recommending continue present management, will continue present management and further recommendation to follow. (2) Acute generalized abdominal pain: Code(s): R10.84 - Generalized abdominal pain Status: Acute Assessment and Plan: Secondary to 1. Supportive care (3) Nausea & vomiting: Code(s): R11.2 - Nausea with vomiting, unspecified Status: Acute Assessment and Plan: Secondary to 1. Supportive care NG in to low intermittent suction (4) Fibromyalgia: Code(s): M79.7 - Fibromyalgia Status: Chronic Assessment and Plan: Unchanged (5) Peripheral neuropathy: Qualifiers: Peripheral neuropathy type: idiopathic neuropathy, unspecified Qualified Code(s): G60.9 - Hereditary and idiopathic neuropathy, unspecified Code(s): G62.9 - Polyneuropathy, unspecified Status: Chronic Assessment and Plan: Unchanged Subjective Date/time seen: 12/15/21 10:30 ED-HPI?86-year-old female presents to the emergency room for abdominal pain that started around 9:00 this morning.? She has been having some cold sweats.? She says that the pain this morning was not too bad but describes it as all over her abdomen.? She went and had lunch with a friend and after that started having vomiting.? She has had 4 emesis since 1 PM.? She is also reporting right flank pain that seems to be coming in waves.? Denies any fever.? She has had 2 normal bowel movements today.? No chest pain or shortness of breath.? Still has her gallbladder and appendix.? She has a history of diverticulosis but has never had diverticulitis. 12/15/2021 interval history:?patient with small bowel obstruction currently NG tube low intermittent suction for decompression, awaiting return of the bowel function,? today patient had 2 small bowel movements and abdominal x-ray showed resolution of small-bowel obstruction, will discuss with General surgery to clamp the NG tube and monitor, abdominal pain is better compared to when she arrived, seen by surgery ser
--- NOTE | 2021-12-15 11:37 | PC.NURSE ---
Called and spoke to Dr. Baxter and he stated bowel obstruction is improving anf to clamp NG tube. If pain improves can remove NG tube after 4-6 hours. Can slowly start patient on clear liquids.
--- NOTE | 2021-12-15 12:12 | PM.PNGS ---
Progress Note: A&P Assessment and Plan (1) Small bowel obstruction: Code(s): K56.609 - Unspecified intestinal obstruction, unspecified as to partial versus complete obstruction Status: Acute Assessment and Plan: exam benign, AXR improved this am, will clamp NG and try sips, if chula ok to remove NG later and start clears Subjective Subjective Date/Time Seen: 12/15/21 12:12 feels better this am, reports nausea, pain improved, wants to eat Review of Systems Review of Systems: All systems reviewed & are unremarkable except as noted in HPI and below Exam Const: General: cooperative, comfortable and no acute distress Resp: Auscultation: clear to auscultation bilaterally Cardio: Rate: regular rate Rhythm: regular rhythm GI: GI Palp: No abdominal tenderness, Yes Soft to palpation, No Tenderness to palpation present (GI), No Guarding due to palpation present (GI) and No Rigid due to palpation Other: sl dist Objective Data Vital Signs Vital Signs: Vital Signs - 24 hr 12/14/21 14:00 12/14/21 19:36 12/14/21 21:35 Temperature 36.3 C L 36.4 C Pulse Rate 89 69 Respiratory Rate 16 20 Blood Pressure 151/71 H 156/67 H Pulse Oximetry 99 98 Oxygen Delivery Room Air 12/15/21 05:09 12/15/21 06:00 Temperature 35.8 C L Pulse Rate 84 Respiratory Rate 18 Blood Pressure 176/80 H 162/69 H Pulse Oximetry 97 Oxygen Delivery Intake/Output Intake/Output: Intake & Output 12/12/21 12/13/21 12/14/21 12/15/21 23:59 23:59 23:59 23:59 Intake Total 1999 1999 Output Total 300 2450 1600 Balance -300 -450 400 Meds/Results Medications: Active Medications Generic Name Dose Route Start Last Admin Trade Name Freq PRN Reason Stop Dose Admin Enoxaparin Sodium 40 mg 12/14/21 09:00 12/15/21 10:13 Enoxaparin 40 Mg/0.4 Ml Syringe SUB-Q Not Given DAILY RYAN Sodium Chloride 1,000 mls @ 125 mls/hr 12/13/21 18:35 12/15/21 10:17 Normal Saline Iv IV CONT 125 mls/hr .Q8H RYAN Administration Morphine Sulfate 2 mg 12/13/21 18:32 12/15/21 10:06 Morphine Sulfate (*Crx) 2 Mg/Ml Inj IV PUSH 2 mg Q2H PRN Administration Pain Rated 7-10 Ondansetron HCl 4 mg 12/13/21 18:32 12/15/21 10:06 Ondansetron Inj 4 Mg/2 Ml Vial IV PUSH 4 mg Q4H PRN Administration Nausea Radiology Results: ITS Impressions Abdomen/Pelvis CT 12/13/21 17:10 IMPRESSION: 1. Small bowel obstruction. Abdomen X-Ray 12/15/21 08:06 IMPRESSION: NG tube in distal stomach or proximal duodenum Postoperative change of the abdomen No bowel dilatation is evident Labs Labs: Laboratory Results - last 24 hr 12/15/21 12/15/21 08:29 08:29 WBC 7.5 RBC 4.14 L Hgb 12.5 Hct 39.5 MCV 95.4 D MCH 30.2 MCHC 31.6 L RDW 12.7 Plt Count 238 MPV 9.9 Sodium 146 H Potassium 3.2 L Chloride 106 Carbon Dioxide 35 H Anion Gap 5 L BUN 20 H Creatinine 0.80 Estim Creat Clear Calc 35 Estimated GFR > 60 Glucose 79 Calcium 8.3 L Magnesium 2.0
[2021-12-15 14:00] VITALS: BP 133/67; PULSE 82; RESP 16; TEMP 36.2; O2SAT 98
--- NOTE | 2021-12-15 16:26 | PC.NURSE ---
Patient has not had any abdominal pain or nausea or vomiting since before NG tube was clamped at 1130. Removed NG tube without difficulty. Patient tolerated well.
[2021-12-15 19:53] VITALS: BP 106/56; PULSE 80; RESP 18; TEMP 36.6; O2SAT 100
[2021-12-16] MEDS: SODIUM CHLORIDE 0.9% IV 1,000 ML 125 ML IV CONT ×3 (01:00→20:22)
[2021-12-16 04:19] VITALS: BP 144/55; PULSE 67; RESP 17; TEMP 37.1; O2SAT 97
[2021-12-16 05:12] LABS: Hematocrit 32.6 % (37.0-47.0); Mean Corpuscular HGB Conc 33.7 g/dl (32-36); Mean Corpuscular Hemoglobin 31.5 pg (26-34); Mean Corpuscular Volume 93.4 fl (80-100); Mean Platelet Volume 9.5 fl (7.4-10.4); Platelet Count Result 201 k/mm3 (150-375); Red Blood Count 3.49 M/mm3 (4.2-5.4); Red Cell Distribution Width 12.7 % (11.5-14.5); White Blood Count 8.3 K/mm3 (4.5-10.0)
[2021-12-16 05:31] LABS: Anion Gap 1 mmol/L (8-16); Blood Urea Nitrogen 20 mg/dL (7-17); Calcium 7.6 mg/dL (8.4-10.2); Carbon Dioxide 31 mmol/L (22-30); Chloride 109 mmol/L (98-107); Estimated CRCL calculation 35 ml/min; Estimated Glomerular Filt Rate > 60; Glucose 91 mg/dL (65-110); Magnesium 1.9 mg/dL (1.6-2.3); Potassium 3.4 mmol/L (3.4-5.0); Sodium 141 mmol/L (137-145)
[2021-12-16 07:59] LABS: Glucose Point of Care 117 mg/dl (65-105)
--- NOTE | 2021-12-16 08:07 | PM.PNGS ---
Progress Note: A&P Assessment and Plan (1) Small bowel obstruction: Code(s): K56.609 - Unspecified intestinal obstruction, unspecified as to partial versus complete obstruction Status: Acute Assessment and Plan: exam improved, chula clears, will slowly ADAT, encourage OOB/IS Subjective Subjective Date/Time Seen: 12/16/21 08:07 feels better this am, no abd pain, passing flatus, chula clears Review of Systems Review of Systems: All systems reviewed & are unremarkable except as noted in HPI and below Exam Const: General: cooperative, comfortable and no acute distress Resp: Auscultation: clear to auscultation bilaterally Cardio: Rate: regular rate Rhythm: regular rhythm GI: Inspection: normal to inspection and non-distended GI Palp: No abdominal tenderness, Yes Soft to palpation, No Tenderness to palpation present (GI), No Guarding due to palpation present (GI) and No Rigid due to palpation Objective Data Vital Signs Vital Signs: Vital Signs - 24 hr 12/15/21 14:00 12/15/21 19:53 12/16/21 04:19 Temperature 36.2 C L 36.6 C 37.1 C Pulse Rate 82 80 67 Respiratory Rate 16 18 17 Blood Pressure 133/67 106/56 L 144/55 H Pulse Oximetry 98 100 97 Intake/Output Intake/Output: Intake & Output 12/13/21 12/14/21 12/15/21 12/16/21 23:59 23:59 23:59 23:59 Intake Total 2000 4000 1000 Output Total 300 2450 3000 100 Balance -300 -450 1000 900 Meds/Results Medications: Active Medications Generic Name Dose Route Start Last Admin Trade Name Freq PRN Reason Stop Dose Admin Enoxaparin Sodium 40 mg 12/14/21 09:00 12/15/21 10:13 Enoxaparin 40 Mg/0.4 Ml Syringe SUB-Q Not Given DAILY RYAN Sodium Chloride 1,000 mls @ 125 mls/hr 12/13/21 18:35 12/16/21 01:00 Normal Saline Iv IV CONT 125 mls/hr .Q8H RYAN Administration Morphine Sulfate 2 mg 12/13/21 18:32 12/15/21 10:06 Morphine Sulfate (*Crx) 2 Mg/Ml Inj IV PUSH 2 mg Q2H PRN Administration Pain Rated 7-10 Ondansetron HCl 4 mg 12/13/21 18:32 12/15/21 10:06 Ondansetron Inj 4 Mg/2 Ml Vial IV PUSH 4 mg Q4H PRN Administration Nausea Radiology Results: ITS Impressions Abdomen/Pelvis CT 12/13/21 17:10 IMPRESSION: 1. Small bowel obstruction. Abdomen X-Ray 12/15/21 08:06 IMPRESSION: NG tube in distal stomach or proximal duodenum Postoperative change of the abdomen No bowel dilatation is evident Labs Labs: Laboratory Results - last 24 hr 12/15/21 12/15/21 12/16/21 08:29 08:29 04:53 WBC 7.5 8.3 RBC 4.14 L 3.49 L Hgb 12.5 11.0 L Hct 39.5 32.6 L MCV 95.4 D 93.4 MCH 30.2 31.5 MCHC 31.6 L 33.7 RDW 12.7 12.7 Plt Count 238 201 MPV 9.9 9.5 Sodium 146 H Potassium 3.2 L Chloride 106 Carbon Dioxide 35 H Anion Gap 5 L BUN 20 H Creatinine 0.80 Estim Creat Clear Calc 35 Estimated GFR > 60 Glucose 79 POC Capillary Glucose Calcium 8.3 L Magnesium 2.0 12/16/21 12/16/21 04:53 07:56 WBC RBC Hgb Hct MCV MCH MCHC RDW Plt Count MPV Sodium 141 Potassium 3.4 Chloride 109 H Carbon Dioxide 31 H Anion Gap 1 L BUN 20 H Creatinine 0.80 Estim Creat Clear Calc 35 Estimated GFR > 60 Glucose 91 POC Capillary Glucose 117 H Calcium 7.6 L Magnesium 1.9
[2021-12-16] MEDS: ENOXAPARIN 40 MG/0.4 ML SYRINGE SUB-Q (09:00)
[2021-12-16] MEDS: polyethylene glycoL 3350 17 GM POWD.PACK PO (11:21)
[2021-12-16 11:25] LABS: Glucose Point of Care 112 mg/dl (65-105)
--- NOTE | 2021-12-16 11:52 | PM.IMPN ---
Progress Note: A&P Assessment and Plan (1) Small bowel obstruction: Code(s): K56.609 - Unspecified intestinal obstruction, unspecified as to partial versus complete obstruction Status: Acute Assessment and Plan: Presented with small-bowel obstruction. Kept NPO an NG to low intermittent suction IV fluid General surgery consulted And she removed 12/15/2021 Worsened abdominal pain reported by the patient today will repeat x-ray abdomen today On clear liquid diet will continue same. (2) Acute generalized abdominal pain: Code(s): R10.84 - Generalized abdominal pain Status: Acute Assessment and Plan: Secondary to 1. Supportive care Worsening abdominal pain today Will get repeat x-ray abdomen (3) Nausea & vomiting: Code(s): R11.2 - Nausea with vomiting, unspecified Status: Acute Assessment and Plan: Secondary to 1. Supportive care NG in to low intermittent suction this is been removed Continue to monitor On clear liquid diet With abdominal pain will continue on clear liquid diet today MiraLax added for constipation (4) Fibromyalgia: Code(s): M79.7 - Fibromyalgia Status: Chronic Assessment and Plan: Unchanged (5) Peripheral neuropathy: Qualifiers: Peripheral neuropathy type: idiopathic neuropathy, unspecified Qualified Code(s): G60.9 - Hereditary and idiopathic neuropathy, unspecified Code(s): G62.9 - Polyneuropathy, unspecified Status: Chronic Assessment and Plan: Unchanged Subjective Date/time seen: 12/16/21 11:52 Interval history: 12/15/21? 10:30 ED-HPI?86-year-old female presents to the emergency room for abdominal pain that started around 9:00 this morning.? She has been having some cold sweats.? She says that the pain this morning was not too bad but describes it as all over her abdomen.? She went and had lunch with a friend and after that started having vomiting.? She has had 4 emesis since 1 PM.? She is also reporting right flank pain that seems to be coming in waves.? Denies any fever.? She has had 2 normal bowel movements today.? No chest pain or shortness of breath.? Still has her gallbladder and appendix.? She has a history of diverticulosis but has never had diverticulitis. 12/15/2021 interval history:?patient with small bowel obstruction currently NG tube low intermittent suction for decompression, awaiting return of the bowel function,? today patient had 2 small bowel movements and abdominal x-ray showed resolution of small-bowel obstruction, will discuss with General surgery to clamp the NG tube and monitor, abdominal pain is better compared to when she arrived, seen by surgery service recommending continue present management, will continue present management and further recommendation to follow. 12/16/2021 complains of diffuse abdominal pain today. Had 2 bowel movement yesterday and passing gas. Abdomen is distended. No nausea vomiting. Tylenol was given which helped her pain some. She has also been given MiraLax to help her with her constipation. No fever chills NG removed yesterday Review of Systems Review of Systems: All systems reviewed & are unremarkable except as noted in HPI and below Exam Narrative: GENERAL: Well-appearing, well-nourished, and in mild distress due to pain HEAD: Normocephalic, atraumatic. EYES: PERRLA and EOMI. NECK: Supple.? No adenopathy or masses.? No carotid bruits or JVD CHEST: Clear to auscultation.? No respiratory distress.? No wheezes rales or rhonchi HEART: Regular rate and rhythm.? No murmur heard.? Normal peripheral pulses. ABDOMEN: abd soft, BS normal. Mild tenderness in left lower quadrant, distended EXTREMITIES: Normal range of motion.? No edema. SKIN: Warm, dry, no rash. NEURO: No focal deficits.? Alert and oriented x3. PSYCH: Normal mood and affect. Objective Data Vital Signs Vital Signs: Vital Signs - 24 hr 12/15/21 14:00 12/15/21 19:53
[2021-12-16 14:00] VITALS: BP 142/63; PULSE 66; RESP 18; TEMP 37; O2SAT 100
[2021-12-16 16:47] LABS: Glucose Point of Care 117 mg/dl (65-105)
[2021-12-16 20:00] VITALS: PULSE 68; RESP 20; O2SAT 99
[2021-12-16 20:42] LABS: Glucose Point of Care 71 mg/dl (65-105)
[2021-12-16 21:10] VITALS: BP 159/62; PULSE 68; RESP 20; TEMP 36.6; O2SAT 99
[2021-12-16] MEDS: MORPHINE SULFATE (*CRX) 2 MG/ML INJ IV PUSH (21:59)
[2021-12-16] MEDS: ONDANSETRON INJ 4 MG/2 ML VIAL IV PUSH (22:07)
[2021-12-16] MEDS: SIMETHICONE 80 MG TAB.CHEW PO (23:53)
[2021-12-17] MEDS: SIMETHICONE 80 MG TAB.CHEW PO ×5 (04:59→20:03)
[2021-12-17] MEDS: SODIUM CHLORIDE 0.9% IV 1,000 ML 125 ML IV CONT (04:59)
[2021-12-17 05:02] VITALS: BP 150/66; PULSE 67; RESP 20; TEMP 36.4; O2SAT 98
[2021-12-17 05:13] LABS: Hematocrit 31.5 % (37.0-47.0); Hemoglobin 10.4 g/dL (12.0-15.0); Mean Corpuscular Hemoglobin 30.6 pg (26-34); Mean Corpuscular Volume 92.6 fl (80-100); Mean Platelet Volume 9.7 fl (7.4-10.4); Platelet Count Result 195 k/mm3 (150-375); Red Cell Distribution Width 12.5 % (11.5-14.5); White Blood Count 5.5 K/mm3 (4.5-10.0)
[2021-12-17 05:37] LABS: Alanine Aminotransferase 14 U/L (6-35); Albumin Level 2.9 g/dL (3.5-5.1); Alkaline Phosphatase 50 U/L (38-126); Anion Gap 0 mmol/L (8-16); Aspartate Amino Transferase 22 U/L (14-36); Bilirubin,Total 0.2 mg/dL (0.2-1.3); Blood Urea Nitrogen 10 mg/dL (7-17); Calcium 7.6 mg/dL (8.4-10.2); Carbon Dioxide 28 mmol/L (22-30); Chloride 111 mmol/L (98-107); Estimated CRCL calculation 39 ml/min; Estimated Glomerular Filt Rate > 60; Glucose 92 mg/dL (65-110); Magnesium 1.8 mg/dL (1.6-2.3); Potassium 3.3 mmol/L (3.4-5.0); Sodium 139 mmol/L (137-145)
[2021-12-17 07:51] LABS: Glucose Point of Care 112 mg/dl (65-105)
[2021-12-17] MEDS: ENOXAPARIN 40 MG/0.4 ML SYRINGE SUB-Q (09:00)
[2021-12-17] MEDS: polyethylene glycoL 3350 17 GM POWD.PACK PO (09:00)
--- NOTE | 2021-12-17 09:40 | PM.PNGS ---
Progress Note: A&P Assessment and Plan (1) Small bowel obstruction: Code(s): K56.609 - Unspecified intestinal obstruction, unspecified as to partial versus complete obstruction Status: Acute Assessment and Plan: Continues to clinically improve. Bowels are moving. Advance to a soft diet. Okay to discharge from a surgical standpoint later today if she is tolerating her diet. Follow-up only as needed. Additional Plan I have discussed the patient's case and plan of care with Dr. Narvaez. Subjective Subjective Date/Time Seen: 12/17/21 09:40 Patient reports: no new complaints, pain is less, tolerating liquids well, flatus, bowel movement and afebrile Interval history: This is an 86 yo F who presented to the ER with abdominal pain. Work-up showed evidence of a small bowel obstruction. She was admitted and treated initially with NG tube decompression and bowel rest. NG has since been removed and she has slowly been advanced on a diet. Chart reviewed. Patient seen and examined. She is feeling well this morning. She reports her abdominal pain and bloatin has improved significantly since admission. She tolerated clear liquids yesterday with no nausea or vomiting. Passing gas today. She had 3 BMs yesterday and feels like she needs to have a BM this morning after breakfast. No new complaints or concerns. Review of Systems Review of Systems: All systems reviewed & are unremarkable except as noted in HPI and below Exam Const: General: alert; No acute distress Orientation/consciousness: patient oriented x3 GI: Inspection: non-distended GI Palp: Yes Soft to palpation, No Tenderness to palpation present (GI), No Guarding due to palpation present (GI) and No Rebound tenderness present Auscultation: normal bowel sounds Extrem: General: normal to inspection and no calf tenderness Psych: Insight: Good insight present (Psych) Judgement: Good judgement present (Psych) Objective Data Vital Signs Vital Signs: Vital Signs - 24 hr 12/16/21 14:00 12/16/21 21:10 12/16/21 20:00 Temperature 98.6 F 98 F Pulse Rate 66 68 68 Respiratory Rate 18 20 20 Blood Pressure 142/63 H 159/62 H Pulse Oximetry 100 99 99 Oxygen Delivery Room Air 12/17/21 05:02 Temperature 97.6 F Pulse Rate 67 Respiratory Rate 20 Blood Pressure 150/66 H Pulse Oximetry 98 Oxygen Delivery Intake/Output Intake/Output: Intake & Output 12/14/21 12/15/21 12/16/21 12/17/21 23:59 23:59 23:59 23:59 Intake Total 1999 4000 4745 1590 Output Total 2450 3000 575 1100 Balance -450 1000 4170 490 Meds/Results Medications: Active Medications Generic Name Dose Route Start Last Admin Trade Name Freq PRN Reason Stop Dose Admin Enoxaparin Sodium 40 mg 12/14/21 09:00 12/17/21 09:00 Enoxaparin 40 Mg/0.4 Ml Syringe SUB-Q 40 mg DAILY RYAN Administration Sodium Chloride 1,000 mls @ 125 mls/hr 12/13/21 18:35 12/17/21 04:59 Normal Saline Iv IV CONT 125 mls/hr .Q8H RYAN Administration Acetaminophen 1,000 mg in 100 mls @ 400 mls/hr 12/16/21 10:43 12/16/21 17:50 Ofirmev 1,000 Mg Ivpb IVPB 12/17/21 10:42 Infused Q6H PRN Infusion Pain Rated 4-6 Morphine Sulfate 2 mg 12/13/21 18:32 12/16/21 21:59 Morphine Sulfate (*Crx) 2 Mg/Ml Inj IV PUSH 2 mg Q2H PRN Administration Pain Rated 7-10 Ondansetron HCl 4 mg 12/13/21 18:32 12/16/21 22:07 Ondansetron Inj 4 Mg/2 Ml Vial IV PUSH 4 mg Q4H PRN Administration Nausea Polyethylene Glycol 17 gm 12/16/21 09:00 12/17/21 09:00 Polyethylene Glycol 3350 17 Gm Powd.Pack PO 17 gm QAM RYAN Administration Simethicone 80 mg 12/16/21 23:26 12/17/21 04:59 Simethicone 80 Mg Tab.Chew PO 80 mg Q4-6H PRN Administration Gas Discomfort Radiology Results: ITS Impressions Abdomen/Pelvis CT 12/13/21 17:10 IMPRESSION: 1. Small bowel obstruction. Abdomen X-Ray 12/16/21 13:58 IMPRESSION: Postoperative changes No bowel obstru
[2021-12-17] MEDS: POTASSIUM CHLORIDE 20 MEQ TABLET PO (10:23)
[2021-12-17] MEDS: ONDANSETRON INJ 4 MG/2 ML VIAL IV PUSH (13:27)
[2021-12-17 14:15] VITALS: BP 136/62; PULSE 61; RESP 16; TEMP 36.5; O2SAT 100
--- NOTE | 2021-12-17 15:44 | PM.IMPN ---
Progress Note: A&P Assessment and Plan (1) Small bowel obstruction: Code(s): K56.609 - Unspecified intestinal obstruction, unspecified as to partial versus complete obstruction Status: Acute Assessment and Plan: Presented with small-bowel obstruction. Kept NPO an NG to low intermittent suction IV fluid General surgery consulted And she removed 12/15/2021 Worsened abdominal pain reported by the patient today x-ray repeat with moderate gastric distension kept on clear liquid 12/16/2021 Advance further by General surgery. Appreciate their recommendation (2) Acute generalized abdominal pain: Code(s): R10.84 - Generalized abdominal pain Status: Acute Assessment and Plan: Secondary to 1. Supportive care Worsening abdominal pain 12/16/2021 x-ray abdomen with gastric distension (3) Nausea & vomiting: Code(s): R11.2 - Nausea with vomiting, unspecified Status: Acute Assessment and Plan: Secondary to 1. Supportive care NG in to low intermittent suction this is been removed Continue to monitor On clear liquid diet With abdominal pain will continue on clear liquid diet today MiraLax added for constipation (4) Fibromyalgia: Code(s): M79.7 - Fibromyalgia Status: Chronic Assessment and Plan: Unchanged (5) Peripheral neuropathy: Qualifiers: Peripheral neuropathy type: idiopathic neuropathy, unspecified Qualified Code(s): G60.9 - Hereditary and idiopathic neuropathy, unspecified Code(s): G62.9 - Polyneuropathy, unspecified Status: Chronic Assessment and Plan: Unchanged Subjective Date/time seen: 12/17/21 15:44 Interval history: 12/15/21? 10:30 ED-HPI?86-year-old female presents to the emergency room for abdominal pain that started around 9:00 this morning.? She has been having some cold sweats.? She says that the pain this morning was not too bad but describes it as all over her abdomen.? She went and had lunch with a friend and after that started having vomiting.? She has had 4 emesis since 1 PM.? She is also reporting right flank pain that seems to be coming in waves.? Denies any fever.? She has had 2 normal bowel movements today.? No chest pain or shortness of breath.? Still has her gallbladder and appendix.? She has a history of diverticulosis but has never had diverticulitis. 12/15/2021 interval history:?patient with small bowel obstruction currently NG tube low intermittent suction for decompression, awaiting return of the bowel function,? today patient had 2 small bowel movements and abdominal x-ray showed resolution of small-bowel obstruction, will discuss with General surgery to clamp the NG tube and monitor, abdominal pain is better compared to when she arrived, seen by surgery service recommending continue present management, will continue present management and further recommendation to follow. 12/16/2021 complains of diffuse abdominal pain today. Had 2 bowel movement yesterday and passing gas. Abdomen is distended. No nausea vomiting. Tylenol was given which helped her pain some. She has also been given MiraLax to help her with her constipation. No fever chills NG removed yesterday 12/17/2021 no overnight events. Abdomen is feeling better. Lots of lattice. Did not have any bowel movement yesterday. No shortness of breath or chest pain Review of Systems Review of Systems: All systems reviewed & are unremarkable except as noted in HPI and below Exam Narrative: GENERAL: Well-appearing, well-nourished, and in mild distress due to pain HEAD: Normocephalic, atraumatic. EYES: PERRLA and EOMI. NECK: Supple.? No adenopathy or masses.? No carotid bruits or JVD CHEST: Clear to auscultation.? No respiratory distress.? No wheezes rales or rhonchi HEART: Regular rate and rhythm.? No murmur heard.? Normal peripheral pulses. ABDOMEN: abd soft, BS normal. Nontender, distended EXTREMITIES: Normal range of motion.? No rashid
[2021-12-17 20:00] VITALS: PULSE 60; RESP 20; O2SAT 100
[2021-12-17] MEDS: BISACODYL 5 MG TABLET EC 10 MG PO (20:02)
[2021-12-17 20:27] VITALS: BP 158/83; PULSE 60; RESP 20; TEMP 36.6; O2SAT 100
[2021-12-18 04:47] VITALS: BP 169/62; PULSE 65; RESP 16; TEMP 36.6; O2SAT 100
[2021-12-18 05:12] LABS: Hematocrit 34.7 % (37.0-47.0); Hemoglobin 11.3 g/dL (12.0-15.0); Mean Corpuscular HGB Conc 32.6 g/dl (32-36); Mean Corpuscular Hemoglobin 30.2 pg (26-34); Mean Corpuscular Volume 92.8 fl (80-100); Mean Platelet Volume 9.4 fl (7.4-10.4); Platelet Count Result 212 k/mm3 (150-375); Red Blood Count 3.74 M/mm3 (4.2-5.4); Red Cell Distribution Width 12.5 % (11.5-14.5)
[2021-12-18 05:25] LABS: Anion Gap 2 mmol/L (8-16); Blood Urea Nitrogen 9 mg/dL (7-17); Calcium 8.2 mg/dL (8.4-10.2); Carbon Dioxide 30 mmol/L (22-30); Chloride 107 mmol/L (98-107); Estimated CRCL calculation 39 ml/min; Estimated Glomerular Filt Rate > 60; Glucose 100 mg/dL (65-110); Magnesium 1.8 mg/dL (1.6-2.3); Potassium 3.4 mmol/L (3.4-5.0); Sodium 139 mmol/L (137-145)
[2021-12-18] MEDS: SIMETHICONE 80 MG TAB.CHEW PO ×2 (09:43→12:13)
[2021-12-18] MEDS: ENOXAPARIN 40 MG/0.4 ML SYRINGE SUB-Q (09:43)
[2021-12-18] MEDS: polyethylene glycoL 3350 17 GM POWD.PACK PO (09:43)
[2021-12-18 14:00] VITALS: BP 142/60; PULSE 64; RESP 18; TEMP 36.4; O2SAT 98
--- NOTE | 2021-12-18 14:30 | PM.PNGS ---
Progress Note: A&P Assessment and Plan (1) Small bowel obstruction: Code(s): K56.609 - Unspecified intestinal obstruction, unspecified as to partial versus complete obstruction Status: Acute Assessment and Plan: Bowels moving and SBFT shows no obstruction. Advised patient to continue small, soft meals for a couple weeks. Return to ED for recurrent symptoms. Ok to discharge from surgery standpoint. If patient has another episode of SBO in the next couple months, she might have to consider surgical intervention to prevent this from happening frequently. (2) Chronic constipation: Code(s): K59.09 - Other constipation Status: Acute Subjective Subjective Date/Time Seen: 12/18/21 14:30 Interval history: Bowels moving. Still complaining of some bloating and cramping pain. No nausea or vomiting. Tolerating diet. Exam GI: Inspection: other (minimally distended) GI Palp: Yes Soft to palpation, No Tenderness to palpation present (GI) and No Guarding due to palpation present (GI) Percussion: Yes normal to percussion Auscultation: normal bowel sounds Objective Data Vital Signs Vital Signs: Vital Signs - 24 hr 12/17/21 20:27 12/17/21 20:00 12/18/21 04:47 Temperature 36.6 C 36.6 C Pulse Rate 60 60 65 Respiratory Rate 20 20 16 Blood Pressure 158/83 H 169/62 H Pulse Oximetry 100 100 100 Oxygen Delivery Room Air 12/18/21 07:35 12/18/21 14:00 Temperature 36.4 C Pulse Rate 64 Respiratory Rate 18 Blood Pressure 142/60 H Pulse Oximetry 98 Oxygen Delivery Room Air Intake/Output Intake/Output: Intake & Output 12/15/21 12/16/21 12/17/21 12/18/21 23:59 23:59 23:59 23:59 Intake Total 4000 4745 2100 240 Output Total 3000 575 6305 700 Balance 1000 4172 -2015 -172 Meds/Results Medications: Active Medications Generic Name Dose Route Start Last Admin Trade Name Freq PRN Reason Stop Dose Admin Acetaminophen 1,000 mg 12/17/21 09:47 Acetaminophen 500 Mg Tablet PO Q6H PRN Mild Pain (1-3) or Fever Bisacodyl 10 mg 12/17/21 21:00 12/17/21 20:02 Bisacodyl 5 Mg Tablet Ec PO 10 mg HS RYAN Administration Enoxaparin Sodium 40 mg 12/14/21 09:00 12/18/21 09:43 Enoxaparin 40 Mg/0.4 Ml Syringe SUB-Q 40 mg DAILY RYAN Administration Morphine Sulfate 2 mg 12/13/21 18:32 12/16/21 21:59 Morphine Sulfate (*Crx) 2 Mg/Ml Inj IV PUSH 2 mg Q2H PRN Administration Pain Rated 7-10 Ondansetron HCl 4 mg 12/13/21 18:32 12/17/21 13:27 Ondansetron Inj 4 Mg/2 Ml Vial IV PUSH 4 mg Q4H PRN Administration Nausea Polyethylene Glycol 17 gm 12/16/21 09:00 12/18/21 09:43 Polyethylene Glycol 3350 17 Gm Powd.Pack PO 17 gm QAM RYAN Administration Simethicone 80 mg 12/17/21 13:00 12/18/21 12:13 Simethicone 80 Mg Tab.Chew PO 80 mg QID RYAN Administration Radiology Results: ITS Impressions Abdomen/Pelvis CT 12/13/21 17:10 IMPRESSION: 1. Small bowel obstruction. Abdomen X-Ray 12/17/21 14:07 IMPRESSION: 1. Nonobstructive bowel gas pattern. Small Bowel X-Ray 12/18/21 09:52 IMPRESSION: 1. Unremarkable small bowel follow-through. No small bowel obstruction. Labs Labs: Laboratory Results - last 24 hr 12/18/21 12/18/21 05:01 05:01 WBC 5.0 RBC 3.74 L Hgb 11.3 L Hct 34.7 L MCV 92.8 MCH 30.2 MCHC 32.6 RDW 12.5 Plt Count 212 MPV 9.4 Sodium 139 Potassium 3.4 Chloride 107 Carbon Dioxide 30 Anion Gap 2 L BUN 9 Creatinine 0.70 Estim Creat Clear Calc 39 Estimated GFR > 60 Glucose 100 Calcium 8.2 L Magnesium 1.8
--- NOTE | 2021-12-18 14:44 | PM.DS ---
DS: Admitting Diagnosis Discharge Date 12/18/2021 Admitting Diagnosis Abdominal pain DS: Discharge Diagnosis Discharge Diagnosis (1) Small bowel obstruction: Code(s): K56.609 - Unspecified intestinal obstruction, unspecified as to partial versus complete obstruction Status: Acute Assessment and Plan: Presented with small-bowel obstruction. She was initially Kept NPO and NG to low intermittent suction IV fluid General surgery consulted NG removed 12/15/2021 Worsened abdominal pain reported by the patient intermittently following that. X-ray repeat with moderate gastric distension kept on clear liquid 12/16/2021 Advance further by General surgery. Appreciate their recommendation Emile bowel started moving and small-bowel follow-through was done which showed no signs of obstruction. She is okay to discharge from surgical standpoint. She is advised to stay continue on small soft meals for next few weeks. (2) Acute generalized abdominal pain: Code(s): R10.84 - Generalized abdominal pain Status: Acute Assessment and Plan: Secondary to 1. Supportive care Worsening abdominal pain 12/16/2021 x-ray abdomen with gastric distension Improved during the hospital stay Aidan start of regular bowel movement (3) Nausea & vomiting: Code(s): R11.2 - Nausea with vomiting, unspecified Status: Acute Assessment and Plan: Secondary to 1. Supportive care NG in to low intermittent suction this is been removed Continue to monitor On clear liquid diet and slowly advance the diet. She should maintain on small soft meals for next few weeks (4) Fibromyalgia: Code(s): M79.7 - Fibromyalgia Status: Chronic Assessment and Plan: Resume home medication (5) Peripheral neuropathy: Qualifiers: Peripheral neuropathy type: idiopathic neuropathy, unspecified Qualified Code(s): G60.9 - Hereditary and idiopathic neuropathy, unspecified Code(s): G62.9 - Polyneuropathy, unspecified Status: Chronic Assessment and Plan: Resume medication DS: Summary Hospital Course Hospital Course: See above Time Spent with Patient Time attestation: Total time spent providing and/or coordinating discharge services: 50 minutes Exam Narrative: GENERAL: Well-appearing, well-nourished, and in mild distress due to pain HEAD: Normocephalic, atraumatic. EYES: PERRLA and EOMI. NECK: Supple.? No adenopathy or masses.? No carotid bruits or JVD CHEST: Clear to auscultation.? No respiratory distress.? No wheezes rales or rhonchi HEART: Regular rate and rhythm.? No murmur heard.? Normal peripheral pulses. ABDOMEN: abd soft, BS normal. Nontender, mildly distended EXTREMITIES: Normal range of motion.? No edema. SKIN: Warm, dry, no rash. NEURO: No focal deficits.? Alert and oriented x3. PSYCH: Normal mood and affect. DS: Data Data Completed and Pending Labs on day of discharge: Labs from last 24 hours 12/18/21 12/18/21 05:01 05:01 WBC 5.0 RBC 3.74 L Hgb 11.3 L Hct 34.7 L MCV 92.8 MCH 30.2 MCHC 32.6 RDW 12.5 Plt Count 212 MPV 9.4 Sodium 139 Potassium 3.4 Chloride 107 Carbon Dioxide 30 Anion Gap 2 L BUN 9 Creatinine 0.70 Estim Creat Clear Calc 39 Estimated GFR > 60 Glucose 100 Calcium 8.2 L Magnesium 1.8 Imaging Radiologist's impression: ITS Impressions Abdomen/Pelvis CT 12/13/21 17:10 IMPRESSION: 1. Small bowel obstruction. Abdomen X-Ray 12/13/21 18:32 IMPRESSION: NG tube near diaphragmatic hiatus with proximal side port in the lower chest; advancement is recommended Abdomen X-Ray 12/15/21 08:06 IMPRESSION: NG tube in distal stomach or proximal duodenum Postoperative change of the abdomen No bowel dilatation is evident Abdomen X-Ray 12/16/21 13:58 IMPRESSION: Postoperative changes No bowel obstruction is evident Severe degenerative change of the thoracic
== END 2021-12-18 15:31 | disposition home or self-care (01) | DRG 390 ==
LOC: ANHED 18:40 → ANH2MED 19:09
PROVIDERS: Family Medicine; Admitting Provider Chiropractor; Emergency Provider Nurse Practitioner Family; PCP Family Medicine; Visit Provider Internal Medicine
DX: K56.609 Unspecified intestinal obstruction, unspecified as to partial versus complete obstruction (principal); K57.90 Diverticulosis of intestine, part unspecified, without perforation or abscess without bleeding; M79.7 Fibromyalgia; K59.09 Other constipation; E78.5 Hyperlipidemia, unspecified; G62.9 Polyneuropathy, unspecified; G60.9 Hereditary and idiopathic neuropathy, unspecified; Z96.651 Presence of right artificial knee joint; Z85.43 Personal history of malignant neoplasm of ovary; Z90.710 Acquired absence of both cervix and uterus
CPT/HCPCS: 36415; 74018; 74019; 74176; 74250; 80048; 80053; 82948; 83605; 83690; 83735; 84484; 85025; 85027; 93005; 96361; 96374; 96375; 99285; A9270; G0378; J0131; J1650; J2270; J2405; J3010; J7030

== ENCOUNTER 2022-03-12 09:54 | Outpatient (CLI) | payer MEDICARE, BC, SELFPAY ==
--- NOTE | ~2022-03-12 | MM_ITS ---
EXAMINATION: MM screening mare BI w ruth HISTORY: Screening mammogram TECHNIQUE: Craniocaudal and mediolateral oblique 3-D tomosynthesis images were obtained and synthetic 2-D images were generated. CAD analysis was submitted and interpreted. COMPARISON: 08/30/2020, 12/08/2019, 12/02/2018 bilateral screening mammogram examinations BREAST PARENCHYMAL COMPOSITION: There are scattered areas of fibroglandular density. FINDINGS: Scattered bilateral benign calcified microhematomas. There is no evidence of suspicious mas s, calcification, or architectural distortion to suggest malignancy in either breast. There has been no suspicious interval change. IMPRESSION: 1. No mammographic evidence of malignancy. 2. Recommend routine screening mammography in one year. BI-RADS Category 2: Benign finding(s). Reviewed, dictated and finalized at location A.
== END 2022-03-12 09:55 | disposition home or self-care (01) ==
PROVIDERS: PCP Family Medicine; Visit Provider Family Medicine
DX: Z12.31 Encounter for screening mammogram for malignant neoplasm of breast (principal)
CPT/HCPCS: 77063; 77067

== ENCOUNTER → 2022-05-24 10:29 | Outpatient (CLI) | payer MEDICARE, BC, SELFPAY ==
--- NOTE | ~2022-05-24 | MR_ITS ---
EXAMINATION: MR hip RT wo con DATE: 05/24/2022 11:40 INDICATION: Right hip pain. TECHNIQUE: Magnetic resonance imaging (MRI) of the right hip was performed without intravenous contra st. 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 There is edema-like marrow signal intensity in superior and anterior right acetabulum and right superior pubic ramus. There is mild osteoarthritis o f the hips. Labrum: There are tears of the acetabular telly. Fluid: There is no hip joint effusion. There is mild bilateral trochanteric bursitis. Soft tissues: There is mild right gluteus minimus tendinopathy. Right gluteus medius tendon is normal. There is a p artial tear of left gluteus minimus tendon. There is a partial tear of left gluteus medius tendon. Th e iliopsoas tendons are normal. There is a partial tear of right hamstring origin. There is a complet e tear of left hamstring origin. IMPRESSION: 1. Edema-like marrow signal intensity in superior and anterior right acetabulum and right superior pu bic ramus, consistent with insufficiency fractures. 2. Mild osteoarthritis of the hips. Reviewed, dictated and finalized at location A. ON SEWER HAND IMPRESSION: 1. Edema-like marrow signal intensity in superior and anterior right acetabulum and right superior pubic ramus, consistent with insufficiency fractures. 2. Mild osteoarthritis of the hips.
== END ==
PROVIDERS: PCP Family Medicine; Visit Provider Nurse Practitioner
DX: M25.551 Pain in right hip (principal); M16.0 Bilateral primary osteoarthritis of hip; M79.89 Other specified soft tissue disorders
CPT/HCPCS: 73721

== ENCOUNTER 2022-07-02 12:30 | Outpatient (RCR) | payer MEDICARE, BC, SELFPAY ==
--- NOTE | 2022-06-05 11:28 | PTOPEVAL1 ---
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 She is to be 50% WB, but came to dept with small based quad cane. She has a full flight of stairs to her laundry and garage, where her car is. She lives alone and has been doing everything indep. She reports her R leg has been weak and problems moving it since her TKR. With the evaluation, she has weakness over R hip and knee, with decreased mobility and gait skill; and is not observing the 50% WB on her R LE-- Reinforced and educated during evaluation. Skilled PT services are indicated to increase R hip and knee strength, with progression of HEP; continue education for gait with 50% WB with wheeled walker and on stairs with one hand railing Plan of Care Interventions Gait Training,Hot Pack/Cold Pack,Manual Therapy, Neuro Re-education,Therapeutic Activities, Therapeutic Exercise PT Services Indicated Yes Treatment Frequency and 1x/wk for 4 weeks Duration These treatments will address the objective and functional deficits as defined above. The patient will be advanced safely and appropriately in order for the patient to progress towards his/her prior level of function. Additional exercises will be introduced and as well as a comprehensive home exercise program upon discharge, if needed, ?to ensure carryover of functional gains achieved in the clinic. This treatment plan has been reviewed and agreement upon by the patient.
--- NOTE | 2022-06-11 09:30 | PCPTNOTE ---
Pt did not show for appointment today. [facility] called pt and pt states she had it marked on the fridge not her calendar and she did not know it was today. [facility] confirmed next appt 06/18/22 with pt.
--- NOTE | 2022-07-02 13:10 | PTOPPROG ---
Assessment and note entered by Jovita Melendez, PT Evaluation Information Assessment Status Progress Diagnosis R hip insufficiency fracture Onset May 05, 2022 Subjective Information Dawna reports: use the walker, but sometimes get up and take off without it; sometimes have to take the cane because walker does not work for where she is going; have been doing the exercises at home; at home, is doing everything she usually does, but not done any deep home cleaning; is going up/down her stairs at home to do laundry, put away [place] decorations and get to garage to the car; pain range of 0-5/10; R sacrum-- sore and hurts; increase pain with first getting up in the morning ---educated on side sleeping with pillow between knees, when stand up straight; decrease pain with naproxen; has not been using heat or ice- instructed to use PRN; Assessment PT Clinical Summary Dawna has had 3 PT appointments; she did not show for 1 and we had to cancel 1 due to water line break. She reports doing all of her normal home tasks, except deep cleaning her home. Compared to the initial evaluation: pain has improved-was 1-8/10 and now 0-5/10; strength of R hip has improved; continues to have 50% WB restriction on R LE, but she reports using cane or nothing at home sometimes--reinstructed on WB precautions; She has been educated on a home exercise program. The goals were achieved. She is to have a follow up appointment with . If PT is to continue, or progression of her activity, she will need a new script. HOLD PT at this time. Plan of Care PT Services Indicated Yes Treatment Frequency and HOLD PT at this time; she is to have a follow up Duration appointment; await orders for progression of activity These treatments will address the objective and functional deficits as defined above. The patient will be advanced safely and appropriately in order for the patient to progress towards his/her prior level of function. Additional exercises will be introduced and as well as a comprehensive home exercise program upon discharge, if needed, ?to ensure carryover of functional gains achieved in the clinic. This treatment plan has been reviewed and agreement upon by the patient.
--- NOTE | 2022-07-29 10:48 | PCPTNOTE ---
PHYSICAL THERAPY DISCHARGE 07-29-22 Attending Provider: Blaise Stevens APN Patient:Dawna Cruz Date of :1935 Dawna has not returned for any further treatments since the reevaluation on 07/02/2022, therefore she will be discharged at this time. Refer to the reevaluation report for her status at the last session. Thank you for referring Dawna to [facility].
== END 2022-07-30 08:59 | disposition home or self-care (01) ==
LOC: ANHPT 12:30
PROVIDERS: PCP Family Medicine; Visit Provider Nurse Practitioner
DX: M25.551 Pain in right hip (principal); S72.001D Fracture of unspecified part of neck of right femur, subsequent encounter for closed fracture with routine healing
CPT/HCPCS: 97110; 97116; 97161; 99199

== ENCOUNTER 2022-08-30 10:00 | Outpatient (RCR) | payer MEDICARE, BC, SELFPAY ==
--- NOTE | 2022-08-01 14:18 | PTOPEVAL1 ---
Assessment and note entered by Cari Obrien DPT Evaluation Information Assessment Status Evaluation Subjective Information Pt reports pain near her right SIJ. Pt reports she had a fall in April and ended up with a fracture, states she has been told it's all healed . Difficulty lifting her right leg up and with walking. Denies pain radiating down her leg. Highest 7/10 and lowest 1/10. Pain with laying down in bed or sitting for a long period of time. Some pain with putting pants on or bending over to pick something up off the floor. Reported Pain Level Pain Score 1: Self Report Assessment PT Clinical Summary The patient is presenting to skilled therapy with a several month history of right LBP/SIJ pain. She presents with postural impairments, decreased strength and SIJ impairments which are contributing to her pain and difficulty with activities like dressing or bending over. She will benefit from skilled therapy to address these impairments and safely reduce pain and dysfunction . Plan of Care Interventions Electrical Stimulation,Hot Pack/Cold Pack,Manual Therapy,Neuro Re-education,Patient/Caregiver Education,Therapeutic Activities,Therapeutic Exercise,Self-Care/Home Management PT Services Indicated Yes Treatment Frequency and 2 times a week for 4 weeks Duration These treatments will address the objective and functional deficits as defined above. The patient will be advanced safely and appropriately in order for the patient to progress towards his/her prior level of function. Additional exercises will be introduced and as well as a comprehensive home exercise program upon discharge, if needed, ?to ensure carryover of functional gains achieved in the clinic. This treatment plan has been reviewed and agreement upon by the patient.
--- NOTE | 2022-08-22 08:18 | PCPTNOTE ---
Pt NS showed her appt today, [employer] called to remind pt of next appt. and voicemail was full and could not take message.
--- NOTE | 2022-08-30 10:17 | PTOPDC ---
Assessment and note entered by Cari Obrien DPT Evaluation Information Assessment Status Discharge Subjective Information Pt reports the therapy has been going well and has been trying to do her HEP. Pain with walking still, getting out of bed in the morning, and rolling over but it has improved. Highest pain 2/ 10 and lowest 0/10. Has been walking with a friend at [employer] for exercise multiple times a week. Unsure if she returns to [facility] soon. Reported Pain Level Pain Score 2: Self Report Assessment PT Clinical Summary The patient has made good progress in therapy and reports greatly decreased pain to 2/10 highest. She demonstrates improved lower extremity strength , less pain with lumbar range of motion, improved flexibility and greatly improved walking speed. Due to her progress, plan to discharge at this time. She has been educated to continue her HEP and to follow up with [facility] and/or PT as needed. Plan of Care PT Services Indicated No
== END 2022-08-30 13:47 | disposition home or self-care (01) ==
LOC: ANHPT 10:00
PROVIDERS: PCP Family Medicine; Visit Provider Nurse Practitioner
DX: M54.30 Sciatica, unspecified side (principal); M53.3 Sacrococcygeal disorders, not elsewhere classified
CPT/HCPCS: 97014; 97110; 97112; 97140; 97162; 97530; 99199; G0283

== ENCOUNTER 2022-11-14 10:48 | Outpatient (NON) | payer MEDICARE, BC, SELFPAY | END 2022-11-14 10:49 | disposition home or self-care (01) | LOC: ANHLAB 11-15 10:50 | PROVIDERS: PCP Family Medicine; Visit Provider Nurse Practitioner | DX: L57.0 Actinic keratosis (principal) | CPT/HCPCS: 88305 ==

== ENCOUNTER 2022-12-10 08:29 | Outpatient (CLI) | payer MEDICARE, BC, SELFPAY ==
[2022-12-10 17:02] LABS: Basophils Absolute Auto 0.1 K/mm3 (0.0-0.1); Basophils Percent Auto 1.2 % (0.2-1.2); Eosinophils Absolute Auto 0.2 K/mm3 (0-0.3); Hematocrit 39.2 % (37.0-47.0); Hemoglobin 12.9 g/dL (12.0-15.0); Lymphocytes Absolute Auto 2.22 K/mm3 (0.9-3.2); Lymphocytes Percent Auto 44.6 % (18.3-44.2); Mean Corpuscular HGB Conc 32.9 g/dl (32-36); Mean Corpuscular Volume 94.2 fl (80-100); Mean Platelet Volume 9.7 fl (7.4-10.4); Monocytes Absolute Auto 0.6 K/mm3 (0.1-0.6); Neutrophils Percent Auto 40.2 % (45.5-73.1); Platelet Count Result 262 k/mm3 (150-375); Red Blood Count 4.16 M/mm3 (4.2-5.4); Red Cell Distribution Width 12.6 % (11.5-14.5)
[2022-12-10 17:13] LABS: LDL Cholesterol Direct 78 mg/dL
[2022-12-10 18:05] LABS: Alanine Aminotransferase 24 U/L (6-35); Albumin Level 4.2 g/dL (3.5-5.1); Alkaline Phosphatase 63 U/L (38-126); Anion Gap 5 mmol/L (8-16); Aspartate Amino Transferase 49 U/L (14-36); Bilirubin,Total 0.4 mg/dL (0.2-1.3); Blood Urea Nitrogen 27 mg/dL (7-17); Calcium 9.5 mg/dL (8.4-10.2); Carbon Dioxide 33 mmol/L (22-30); Chloride 101 mmol/L (98-107); Cholesterol 153 mg/dL (0-200); Estimated Glomerular Filt Rate > 60; Glucose 59 mg/dL (65-110); HDL Direct 48 mg/dL; Potassium 4.5 mmol/L (3.4-5.0); Sodium 139 mmol/L (137-145); Triglycerides 140 mg/dL (<150)
== END 2022-12-10 08:30 | disposition home or self-care (01) ==
LOC: ANHGOSHLAB 08:30
PROVIDERS: PCP Family Medicine; Visit Provider Family Medicine
DX: E78.00 Pure hypercholesterolemia, unspecified (principal); Z13.228 Encounter for screening for other metabolic disorders; R53.83 Other fatigue; Z13.220 Encounter for screening for lipoid disorders
CPT/HCPCS: 36415; 80053; 80061; 85025

== ENCOUNTER → 2022-12-10 08:42 | Outpatient (CLI) | payer MEDICARE, BC, SELFPAY ==
--- NOTE | ~2022-12-10 | XR_ITS ---
EXAMINATION: XR ribs RT 2V INDICATION: Right-sided rib pain TECHNIQUE: 3 views of the right ribs were obtained. COMPARISON: 01/03/2021 FINDINGS: There is an acute, minimally displaced segmental fracture of the right seventh rib. No piotr tional displaced rib fracture is identified. There is mild atelectasis of the right lung base. No pne umothorax or pleural effusion identified. There is severe thoracic spondylosis. IMPRESSION: 1. Minimally displaced segmental fracture of the right seventh rib. Reviewed, dictated and finalized at location A.
== END ==
PROVIDERS: PCP Family Medicine; Visit Provider Family Medicine
DX: R07.81 Pleurodynia (principal)
CPT/HCPCS: 71100

== ENCOUNTER 2022-12-17 11:36 | Outpatient (NON) | payer MEDICARE, BC, SELFPAY | END 2022-12-17 11:37 | disposition home or self-care (01) | LOC: ANHLAB 12-18 11:39 | PROVIDERS: PCP Family Medicine; Visit Provider Nurse Practitioner | DX: L57.0 Actinic keratosis (principal) | CPT/HCPCS: 88305 ==

== ENCOUNTER 2023-03-17 14:22 | Outpatient (CLI) | payer MEDICARE, BC, SELFPAY ==
[2023-03-17 15:30] LABS: SARS-CoV-2 RNA PCR Positive (Negative)
== END 2023-03-17 14:23 | disposition home or self-care (01) ==
PROVIDERS: PCP Family Medicine; Visit Provider Family Medicine
DX: U07.1 COVID-19 (principal)
CPT/HCPCS: 87635

== ENCOUNTER 2023-04-09 03:11 | Day surgery (SDC) | payer MEDICARE, BC, SELFPAY ==
[2023-03-28 12:05] VITALS: BMI 21.4
--- NOTE | 2023-04-08 16:49 | PM.HPGS ---
History of Present Illness History of Present Illness Consent: Risks, benefits, and alternatives have been discussed and questions answered. Patient agrees to proceed with procedure. Chief complaint: Dysphagia,unspecified Narrative: Dawna Cruz is a 87 year old female was having issues with difficulty swallowing. She feels as though it is hard to get things to start to go down as though they or catching in her throat. Even more concerning to her is that if she bends her head forward she has discomfort around the Abel's apple. Review of Systems Review of Systems: All systems reviewed & are unremarkable except as noted in HPI and below PMFSH Past Medical History Medical History Cervicalgia Chronic constipation Fibromyalgia Hereditary and idiopathic neuropathy History of small bowel obstruction Hyperlipidemia Ovarian cancer Peripheral neuropathy SBO (small bowel obstruction) Scalp itch Surgical History Surgical History H/O repair of left rotator cuff H/O: hysterectomy History of bilateral oophorectomy History of removal of Port-a-Cath History of tonsillectomy History of total right knee replacement Family History Family History Father Asthma Diabetes mellitus Mother Lung cancer Liver cancer Brain cancer Sibling Bone cancer Other Bone cancer Other Breast cancer Social History Social History Social History: the patient became many years ago. The patient had 2 children and 1 daughter of rye syndrome. The patient has 1 daughter left who is in contact with her. The patient is listed as a full code. She lives home alone is very active. 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 lifelong nonsmoker Smoking status: Never smoker Second hand tobacco smoke exposure: No Alcohol intake: former Substance use: never Substance use type: does not use Lack of Transportation: No Lack of Food: Never True Current Housing: I Have Housing Concerned About Future Housing: No Difficulty Paying Gas/Electric Bills: No Difficulty Paying for Meds: No Currently Unemployed: No Education: High School Diploma/GED Difficulty w/ Childcare or Family Care: No Living arrangements: alone Occupation/Education: retired Gender identity (if verbalized by the patient): Female Spiritual care concerns: No Meds Home Medications and Allergies Home Medications Medication Instructions Recorded Confirmed Type cyanocobalamin (vitamin B-12) 500 500 mcg PO DAILY 01/03/21 04/09/23 History mcg tablet lactobacillus combination no.4 3 3 cell PO DAILY 01/03/21 04/09/23 History billion cell capsule (Probiotic) magnesium 250 mg tablet 250 mg PO DAILY 01/03/21 04/09/23 History polyethylene glycol 3350 17 17 g PO DAILY 01/03/21 04/09/23 History gram/dose oral powder (Miralax) psyllium husk (aspartame) 3 gram 1 packet PO DAILY 01/03/21 04/09/23 History oral powder packet (Daily Fiber (psyllium-aspartame)) tumeric 100 mg-ge 150 mg-olive 1 cap PO DAILY 01/03/21 04/09/23 History 50 mg-oreg 150 mg-caprylate capsule ascorbate calcium (vitamin C) 500 500 mg PO DAILY 09/11/21 04/09/23 History mg tablet calcium carbonate 600 mg-vitamin 2 tablet PO DAILY 09/11/21 04/09/23 History D3 5 mcg (200 unit) tablet (Calcium 600 + D(3)) cholecalciferol (vitamin D3) 50 50 mcg PO DAILY 09/11/21 04/09/23 History mcg (2,000 unit) capsule (Vitamin D3) mirabegron 25 mg tablet,extended 50 mg PO DAILY 12/13/21 04/09/23 History release 24 hr (Myrbetriq) simvastatin 40 mg tablet 40 mg PO DAILY #90 tabs 11/22/22 04/09/23 Rx pregabalin 75 mg capsule (Lyrica) 75 mg PO BID #180 caps 01/06/23 04/09/23 Rx docusate sodium 100 mg capsule
[2023-04-09 09:14] VITALS: BP 120/60; PULSE 64; RESP 18; TEMP 36.8; O2SAT 100; BMI 20.7
[2023-04-09] MEDS: LACTATED RINGERS 1,000 ML 150 ML IV CONT (09:22)
--- NOTE | 2023-04-09 09:35 | WPDANESEPPF ---
Anes - Initial Pre Proc Eval Procedure: Operation Date: 04/09/23 10:30 Proposed Procedures p Esophagogastroduodenoscopy - Joe Villasenor MD Date/Time: 04/09/23 09:35 Surgeon: Joe Villasenor MD Pre Op Diagnosis: Dysphagia,unspecified Patient Data Age: 87 Gender: F Height: 1.57 m Weight: 51.3 kg Last Vital Signs Temp 98.2 F 04/09/23 09:14 Pulse 64 04/09/23 09:14 Resp 18 04/09/23 09:14 BP 120/60 04/09/23 09:14 Pulse Ox 100 04/09/23 09:14 O2 Del Method Room Air 04/09/23 09:14 Allergies Allergy/AdvReac Type Severity Reaction Status Date / Time cephalexin Allergy Unknown Unknown Verified 04/09/23 09:10 chlorpheniramine Allergy Unknown Unknown Verified 04/09/23 09:10 guaifenesin Allergy Unknown Unknown Verified 04/09/23 09:10 phenylephrine Allergy Unknown Unknown Verified 04/09/23 09:10 phenylpropanolamine Allergy Unknown Unknown Verified 04/09/23 09:10 prednisone Allergy Unknown Unknown Verified 04/09/23 09:10 pseudoephedrine Allergy Unknown Unknown Verified 04/09/23 09:10 sulfamethoxazole Allergy Unknown Unknown Verified 04/09/23 09:10 trimethoprim Allergy Unknown Unknown Verified 04/09/23 09:10 duloxetine AdvReac Nausea and Verified 04/09/23 09:10 Vomiting Home Medications Medication Instructions Recorded Confirmed Type cyanocobalamin (vitamin B-12) 500 500 mcg PO DAILY 01/03/21 04/09/23 History mcg tablet lactobacillus combination no.4 3 3 cell PO DAILY 01/03/21 04/09/23 History billion cell capsule (Probiotic) magnesium 250 mg tablet 250 mg PO DAILY 01/03/21 04/09/23 History polyethylene glycol 3350 17 17 g PO DAILY 01/03/21 04/09/23 History gram/dose oral powder (Miralax) psyllium husk (aspartame) 3 gram 1 packet PO DAILY 01/03/21 04/09/23 History oral powder packet (Daily Fiber (psyllium-aspartame)) tumeric 100 mg-ge 150 mg-olive 1 cap PO DAILY 01/03/21 04/09/23 History 50 mg-oreg 150 mg-caprylate capsule ascorbate calcium (vitamin C) 500 500 mg PO DAILY 09/11/21 04/09/23 History mg tablet calcium carbonate 600 mg-vitamin 2 tablet PO DAILY 09/11/21 04/09/23 History D3 5 mcg (200 unit) tablet (Calcium 600 + D(3)) cholecalciferol (vitamin D3) 50 50 mcg PO DAILY 09/11/21 04/09/23 History mcg (2,000 unit) capsule (Vitamin D3) mirabegron 25 mg tablet,extended 50 mg PO DAILY 12/13/21 04/09/23 History release 24 hr (Myrbetriq) simvastatin 40 mg tablet 40 mg PO DAILY #90 tabs 11/22/22 04/09/23 Rx pregabalin 75 mg capsule (Lyrica) 75 mg PO BID #180 caps 01/06/23 04/09/23 Rx docusate sodium 100 mg capsule 100 mg PO DAILY 03/28/23 04/09/23 History Patient hx anesthesia problems: none Family hx anesthesia problems: none Results Review: All pre-operative results and documents have been reviewed as part of the pre-operative evaluation. [facility] Past Medical History Medical History Cervicalgia Chronic constipation Fibromyalgia Hereditary and idiopathic neuropathy History of small bowel obstruction Hyperlipidemia Ovarian cancer Peripheral neuropathy SBO (small bowel obstruction) Scalp itch Surgical History Surgical History H/O repair of left rotator cuff H/O: hysterectomy History of bilateral oophorectomy History of removal of Port-a-Cath History of tonsillectomy History of total right knee replacement Family History Family History Father Asthma Diabetes mellitus Mother Lung cancer Liver cancer Brain cancer Sibling Bone cancer Other Bone cancer Other Breast cancer Social History Social History Social History: the patient became many years ago. The patient had 2 children and 1 daughter of rye syndrome. The patient has 1 daughter left who is in contact with her. The patient is
[2023-04-09 10:48] VITALS: BP 122/58; PULSE 72; RESP 17; O2SAT 97
[2023-04-09 11:08] VITALS: BP 137/68; PULSE 68; RESP 14; O2SAT 99
[2023-04-09 11:12] VITALS: BP 125/57; PULSE 66; RESP 14; O2SAT 98
== END 2023-04-09 11:16 | disposition home or self-care (01) ==
PROVIDERS: PCP Family Medicine; Visit Provider Internal Medicine Gastroenterology
PROC: 0DJ08ZZ Inspection of Upper Intestinal Tract, Via Natural or Artificial Opening Endoscopic (ICD-10-PCS; CPT 43235; principal; 2023-04-09 10:30)
DX: R13.12 Dysphagia, oropharyngeal phase (principal); K21.9 Gastro-esophageal reflux disease without esophagitis; K59.09 Other constipation; Z87.19 Personal history of other diseases of the digestive system; E78.5 Hyperlipidemia, unspecified; Z85.43 Personal history of malignant neoplasm of ovary; Z80.1 Family history of malignant neoplasm of trachea, bronchus and lung; Z80.0 Family history of malignant neoplasm of digestive organs; Z80.8 Family history of malignant neoplasm of other organs or systems; Z80.3 Family history of malignant neoplasm of breast
CPT/HCPCS: 43239; 88305; J2704; J7120

== ENCOUNTER → 2023-04-14 10:09 | Outpatient (CLI) | payer MEDICARE, BC, SELFPAY ==
--- NOTE | ~2023-04-14 | US_ITS ---
Thyroid ultrasound. Clinical History: Neck pain Findings: Real-time sonography of the thyroid gland was performed. The right lobe measures 3.5 x 1.4 x 1.1 cm. The left lobe measures 3.3 x 1.3 x 1.4 cm. The isthmus is 3 mm in AP diameter. No thyroid nodule evident. Impression: No significant abnormality seen. Reviewed, dictated and finalized at location . Impression: No significant abnormality seen.
== END ==
PROVIDERS: PCP Family Medicine; Visit Provider Family Medicine
DX: M54.2 Cervicalgia (principal)
CPT/HCPCS: 76536

== ENCOUNTER 2023-05-01 10:00 | Outpatient (RCR) | payer MEDICARE, BC, SELFPAY ==
--- NOTE | 2023-02-26 10:28 | PTOPEVAL1 ---
Assessment and note entered by Mor Warner Evaluation Information Assessment Status Evaluation Diagnosis weakness Onset 04/30/22 Subjective Information Pt. reports that she fell in April of last year . She reports that her fall resulted in a hip fx. She did not have to do surgery. She recalls having fallen backwards onto the floor. She does not know why she fell. She reports that she did not undergo any therapy. She states that she had another in November of this year. She was picking weeds at the time and tripped over some bricks. She currently describes daily low back pain. She states that she also suffers from constant shoulder pain. She has noticed her legs feel very weak as of recently. She states that she also has pain into the legs with walking. She reports that she is still walking in her yard and can be on her feet for up to 1 hour. She reports that standing for an hour has become more difficult compared to several months ago. She reports a sense of unsteadiness with working in her yard, but tries to continue to complete her housework, since she lives alone. She reports that her goal is to improve her strength and balance. Reported Pain Level Pain Score 8,6: Self Report Assessment PT Clinical Summary Pt. is an 87 year old female who enters the clinic due to developed l.e. weakness. She presents with somatosensory deconditioning, impaired balance, impaired gait, generalized u.e. and l.e. weakness and pain. Continued skilled PT is indicated in order to improve these areas to allow the pt. to be able to complete all IADL's without limitation and improved safety. Plan of Care Interventions Electrical Stimulation,Gait Training,Hot Pack/Cold Pack,Manual Therapy,Neuro Re-education,Patient/ Caregiver Educati,Therapeutic Activities, Therapeutic Exercise,Self-Care/Home Management PT Services Indicated Yes Treatment Frequency and 2x/week x 10 visits Duration These treatments will address the objective and functional deficits as defined above. The patient will be advanced safely and appropriately in order for the patient to progress towards his/her prior level of function. Additional exercises will be introduced and as well as a comprehensive home exercise program upon discharge, if needed, ?to ensure carryover of functional gains achieved in the clinic. This treatment plan has been reviewed and agreement upon by the patient.
--- NOTE | 2023-02-26 10:34 | OPREHPOC ---
Outpatient Therapy Plan of Care This is a Multidisciplinary Plan of Care that may contain components documented by all disciplines (PT, OT, and ST.) PT Problem 1 PT Problem #1 Knowledge Deficit PT Goal 1 Goal Pt. will be independent with a HEP addressing strength and mobility Target Visit 2 PT Problem 2 PT Problem #2 Impaired Balance PT Goal 1 Goal -Pt. 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 will increase her tinetti score to 24 or greater indicating improved balance and safety. Target Visit 10 PT Problem 3 PT Problem #3 Impaired Gait PT Goal 1 Goal Pt. will ambulate with improved foot clearence and stride length noted by ability for swing phase extremity to pass the stance phase extremity. Target Visit 10 PT Problem 4 PT Problem #4 Impaired Strength PT Goal 1 Goal Pt. will present with 4/5 or greater gross right l .e. strength
--- NOTE | 2023-03-14 13:26 | PCPTNOTE ---
Pt. canceled 03/14/23 appointment stating she was not feeling well.
--- NOTE | 2023-03-18 11:27 | PCPTNOTE ---
Pt. canceled 03/18/23 appointment noting that she tested positive for Covid.
--- NOTE | 2023-04-03 10:05 | PTOPEVAL1 ---
Assessment and note entered by Mor Warner Evaluation Information Assessment Status Progress Diagnosis weakness Onset 04/30/22 Subjective Information Pt. reports that therapy has helped to improve her mobility. She states that she is discouraged due to having gotten covid in the middle of her rehab . She reports that she is walking better and her legs are stronger. She states that she would like to continue treatment focusing on strength and mobility to continue Reported Pain Level Pain Score 4,4: Self Report Assessment PT Clinical Summary Pt. has demonstrated progress regarding gait efficiency, strength and tinetti score. She continues to present with a fall risk, generalized weakness and impairments in gait. Given her progress further treatment is recommend to continue to improve safety and efficiency with IADL's to prevent future falls and improve comfort . Plan of Care Interventions Electrical Stimulation,Gait Training,Hot Pack/Cold Pack,Manual Therapy,Neuro Re-education,Patient/ Caregiver Educati,Therapeutic Activities, Therapeutic Exercise PT Services Indicated Yes Treatment Frequency and 2x/week x 8 visits Duration These treatments will address the objective and functional deficits as defined above. The patient will be advanced safely and appropriately in order for the patient to progress towards his/her prior level of function. Additional exercises will be introduced and as well as a comprehensive home exercise program upon discharge, if needed, ?to ensure carryover of functional gains achieved in the clinic. This treatment plan has been reviewed and agreement upon by the patient.
--- NOTE | 2023-05-01 12:08 | PTOPDC ---
Assessment and note entered by Elias Ho, PT Discharge Information Assessment Status Discharge Diagnosis weakness Onset 04/30/22 Subjective Information Reports that overall she is doing significantly better with therapy. She has seen hip and balance improvement. Feels she needs to continue to motivate herself to make sure she is doing exercises at home. Reported Pain Level Pain Score 5,3: Self Report Assessment PT Clinical Summary Patient met all goals for therapy and is suitable for discharge to [facility] at this time. Balance and strength have both shown significant improvement at this time making her a low fall risk. She demonstrates understanding of [facility] for continued improvement potential. Plan of Care PT Services Indicated No
== END 2023-05-01 12:35 | disposition home or self-care (01) ==
LOC: ANHPT 10:00
PROVIDERS: PCP Family Medicine; Visit Provider Family Medicine
DX: R53.1 Weakness (principal); R53.81 Other malaise
CPT/HCPCS: 97014; 97110; 97112; 97161; 97530; 97750; 99199; G0283

== ENCOUNTER 2023-05-20 11:53 | Emergency (ER) | payer MEDICARE, BC, SELFPAY ==
[2023-05-20] VITALS (16 sets, daily range): BP systolic 90–126; BP diastolic 52–77; PULSE 71–78; RESP 16–20; TEMP 36.7–36.9; O2SAT 94–100
--- NOTE | ~2023-05-20 | XR_ITS ---
XR chest 2V 05/20/2023 13:04 Indication: Cough and congestion. Shortness of breath. Procedure: 2 view chest Comparison: 12/10/2012 Findings: There are age-indeterminate right sixth-seventh and eighth rib fractures. Heart size normal . There is scoliosis. Moderate thoracic spondylosis. Calcified granuloma left upper thorax. No focal air space disease, pulmonary edema, pleural effusion or suspected pneumothorax. Impression: 1: Age-indeterminate right sixth, seventh and eighth rib fractures. Reviewed, dictated and finalized at location L. ARCH KENNEL SUPERVISOR Impression: 1: Age-indeterminate right sixth, seventh and eighth rib fractures.
--- NOTE | 2023-05-20 12:39 | ED.URI ---
HPI - URI/Sore Throat General Chief Complaint: Upper Respiratory Infection <Esther Gant PA-C - Last Filed: 05/20/23 12:42> Stated Complaint: cough/weak <BLAIR Potts Last Filed: 05/20/23 12:42> Time Seen by Provider: 05/20/23 14:30 <BLAIR Potts Last Filed: 05/20/23 12:42> Source: patient <BLAIR Potts Last Filed: 05/20/23 12:42> Mode of arrival: ambulatory <BLAIR Potts Last Filed: 05/20/23 12:42> Limitations: no limitations <BLAIR Potts Last Filed: 05/20/23 12:42> History of Present Illness HPI Narrative: Patient is an 87 y/o female who presents to the ED with c/o cough and congestion. Patient reports having URI sx's since Friday. C/o productive cough, congestion, mild SOB. She states she feels weak, fatigued, and dizzy. No fevers. No known sick contacts. No CP, N/V. Patient is covid vaccinated. <Esther Gant PA-C - Last Filed: 05/20/23 12:42> Related Data Home Medications: Home Medications Medication Instructions Recorded Confirmed cyanocobalamin (vitamin B-12) 500 500 mcg PO DAILY 01/03/21 04/30/23 mcg tablet lactobacillus combination no.4 3 3 cell PO DAILY 01/03/21 04/30/23 billion cell capsule (Probiotic) magnesium 250 mg tablet 250 mg PO DAILY 01/03/21 04/30/23 psyllium husk (aspartame) 3 gram 1 packet PO DAILY 01/03/21 04/30/23 oral powder packet (Daily Fiber (psyllium-aspartame)) tumeric 100 mg-ge 150 mg-olive 1 cap PO DAILY 01/03/21 04/30/23 50 mg-oreg 150 mg-caprylate capsule ascorbate calcium (vitamin C) 500 500 mg PO DAILY 09/11/21 04/30/23 mg tablet calcium carbonate 600 mg-vitamin 2 tablet PO DAILY 09/11/21 04/30/23 D3 5 mcg (200 unit) tablet (Calcium 600 + D(3)) cholecalciferol (vitamin D3) 50 50 mcg PO DAILY 09/11/21 04/30/23 mcg (2,000 unit) capsule (Vitamin D3) mirabegron 25 mg tablet,extended 50 mg PO DAILY 12/13/21 04/30/23 release 24 hr (Myrbetriq) polyethylene glycol 3350 17 gram 17 g PO DAILY 04/30/23 04/30/23 oral powder packet (ClearLax) <Esther Gant PA-C - Last Filed: 05/20/23 12:42> Allergies/Adverse Reactions: Allergies Allergy/AdvReac Type Severity Reaction Status Date / Time cephalexin Allergy Unknown Unknown Verified 04/30/23 11:00 chlorpheniramine Allergy Unknown Unknown Verified 04/30/23 11:00 guaifenesin Allergy Unknown Unknown Verified 04/30/23 11:00 phenylephrine Allergy Unknown Unknown Verified 04/30/23 11:00 phenylpropanolamine Allergy Unknown Unknown Verified 04/30/23 11:00 prednisone Allergy Unknown Unknown Verified 04/30/23 11:00 pseudoephedrine Allergy Unknown Unknown Verified 04/30/23 11:00 sulfamethoxazole Allergy Unknown Unknown Verified 04/30/23 11:00 trimethoprim Allergy Unknown Unknown Verified 04/30/23 11:00 duloxetine AdvReac Nausea and Verified 04/30/23 11:00 Vomiting <Esther Gant PA-C - Last Filed: 05/20/23 12:42> Review of Systems Review of Systems: All systems reviewed & are unremarkable except as noted in HPI and below <Keith Berry MD - Last Filed: 05/20/23 18:08> ENT: Reports nasal congestion <Esther Gant PA-C - Last Filed: 05/20/23 12:42> Cardiovascular: Cardiovascular: Denies chest pain <Esther Gant PA-C - Last Filed: 05/20/23 12:42> Respiratory: Respiratory: Reports chest congestion, Reports cough and Reports dyspnea <Esther Gant PA-C - Last Filed: 05/20/23 12:42> Gastrointestinal: Gastrointestinal: Denies diarrhea, Denies nausea and Denies vomiting <Esther Gant PA-C - Last Filed: 05/20/23 12:42> Neurologic: Reports weakness <Esther Gant PA-C - Last Filed: 05/20/23 12:42> REPLACED BY [facility] Past Medical History Medical History: Medical History Cervicalgia Chronic constipation Fibromyalgia Hereditary and idiopathic bert
--- NOTE | 2023-05-20 12:42 | ECG_ITS ---
Measurements Intervals [facility] Rate: 73 P: 77 OK: 148 QRS: 66 QRSD: 92 T: 28 QT: 407 QTc: 449 Interpretive Statements SINUS RHYTHM BORDERLINE ST-T WAVE ABNORMALITY- HIGH LATERAL LEADS BASELINE ARTIFACT- I, II, III, AVR, AVL, AVF, V1, V4-V6 BORDERLINE ECG COMPARED TO ECG 12/13/2021 16:39:34 NO SIGNIFICANT CHANGES Electronically Signed On 05-20-2023 16:42:38 [employer] CONSULTANT by Salvador Laurent D.O.
[2023-05-20 13:02] LABS: Basophils Absolute Auto 0.1 K/mm3 (0.0-0.1); Basophils Percent Auto 0.6 % (0.2-1.2); Eosinophils Absolute Auto 0.2 K/mm3 (0-0.3); Eosinophils Percent Auto 1.9 % (0-4.4); Hematocrit 40.4 % (37.0-47.0); Hemoglobin 12.7 g/dL (12.0-15.0); Immature Granulocyte Absolute 0.02 K/mm3 (0.00-0.031); Immature Granulocyte Percent A 0.2 % (0-0.5); Lymphocytes Absolute Auto 2.86 K/mm3 (0.9-3.2); Lymphocytes Percent Auto 29.6 % (18.3-44.2); Mean Corpuscular HGB Conc 31.4 g/dl (32-36); Mean Corpuscular Hemoglobin 29.8 pg (26-34); Mean Corpuscular Volume 94.8 fl (80-100); Mean Platelet Volume 9.3 fl (7.4-10.4); Neutrophils Absolute Auto 5.6 K/mm3 (1.3-6.7); Neutrophils Percent Auto 57.7 % (45.5-73.1); Platelet Count Result 305 k/mm3 (150-375); Red Blood Count 4.26 M/mm3 (4.2-5.4); Red Cell Distribution Width 12.9 % (11.5-14.5); White Blood Count 9.7 K/mm3 (4.5-10.0)
[2023-05-20 13:23] LABS: Influenza A QL RT-PCR Negative (Negative); Influenza B QL RT-PCR Negative (Negative); RSV RNA, RT-PCR Negative (Negative); SARS-CoV-2 RNA PCR Negative (Negative)
[2023-05-20 13:26] LABS: Alanine Aminotransferase 22 U/L (6-35); Alkaline Phosphatase 62 U/L (38-126); Anion Gap 8 mmol/L (8-16); Aspartate Amino Transferase 32 U/L (14-36); Bilirubin,Total 0.5 mg/dL (0.2-1.3); Blood Urea Nitrogen 22 mg/dL (7-17); Calcium 9.4 mg/dL (8.4-10.2); Carbon Dioxide 33 mmol/L (22-30); Chloride 100 mmol/L (98-107); Estimated CRCL calculation 25 ml/min; Estimated Glomerular Filt Rate 52; Glucose 78 mg/dL (65-110); Potassium 4.8 mmol/L (3.4-5.0); Sodium 141 mmol/L (137-145)
[2023-05-20 13:32] LABS: NT Pro B Type Natriuretic Pept 312 pg/mL (19.9-100); Troponin I < 0.012 ng/mL (0.000-0.034)
[2023-05-20 13:44] LABS: Albumin Level 4.3 g/dL (3.5-5.1)
[2023-05-20] MEDS: DOXYCYCLINE HYCLATE 100 MG TABLET PO (15:25)
[2023-05-20] MEDS: LEVALBUTEROL NEB 1.25 MG/3 ML INHALATION (15:36)
== END 2023-05-20 15:58 | disposition home or self-care (01) ==
PROVIDERS: Physician Assistant; Emergency Provider Emergency Medicine; PCP Family Medicine
DX: J18.9 Pneumonia, unspecified organism (principal); M79.7 Fibromyalgia; E78.5 Hyperlipidemia, unspecified; R06.02 Shortness of breath
CPT/HCPCS: 36415; 71046; 80053; 83880; 84484; 85025; 87637; 93005; 94640; 99284; A9270

== ENCOUNTER 2023-06-04 09:59 | Outpatient (CLI) | payer MEDICARE, BC, SELFPAY ==
--- NOTE | ~2023-06-04 | MM_ITS ---
EXAMINATION: MM screening [facility] HISTORY: Screening mammogram TECHNIQUE: Craniocaudal and mediolateral oblique 3-D tomosynthesis images were obtained and synthetic 2-D images were generated. CAD analysis was submitted and interpreted. COMPARISON: 03/29/2022, 01/30/2021, 12/08/2019 BREAST PARENCHYMAL COMPOSITION:There are scattered areas of fibroglandular density. FINDINGS: Bilateral benign calcifications are similar to prior exams. No suspicious mass, calcificati on, or architectural distortion are identified in either breast to suggest malignancy. There has been no suspicious interval change. IMPRESSION: No mammographic evidence of malignancy. Recommend routine screening mammography in one year. BI-RADS Category 2: Benign finding(s). Reviewed, dictated and finalized at location . UCTION CELL LEADER
== END 2023-06-04 10:00 | disposition home or self-care (01) ==
LOC: ANHIMG 10:01
PROVIDERS: PCP Family Medicine; Visit Provider Family Medicine
DX: Z12.31 Encounter for screening mammogram for malignant neoplasm of breast (principal)
CPT/HCPCS: 77063; 77067

== ENCOUNTER 2023-08-11 13:26 | Outpatient (CLI) | payer MEDICARE, BC, SELFPAY ==
--- NOTE | ~2023-08-11 | XR_ITS ---
EXAMINATION: XR barium swallow modified DATE: 08/11/2023 14:01 INDICATION: Dysphagia. TECHNIQUE: The patient was given barium-containing material of multiple consistencies to swallow by t he speech pathologist while I performed fluoroscopy. Fluoroscopy exposure time was 0.8 minutes. The n umber of fluoroscopy images saved to the PACS was 1. Dose-area product was 0.769 Gy-cm^2. FINDINGS: There is reduced laryngeal elevation. There is laryngeal penetration with uncontrolled thin liquids. IMPRESSION: 1. Laryngeal penetration with uncontrolled thin liquids. 2. Please refer to the speech therapy report for recommendations. Reviewed, dictated and finalized at location A. IR WELDER
--- NOTE | 2023-08-12 08:32 | REHSTMBS ---
Assessment and note entered by Emily Leone, MASTER TECHNICIAN Modified Barium Swallow Evaluation Feeding Type Recommended Oral Food Consistency Soft and Bite Size, Level Liquid Consistency Thin (0) Treatment Recommendations Effortful Swallow,Laryngeal Elevation Exerc,Shaker Exercise,Thermal-Tactile Stim,Tongue Base Exercise ST Clinical Summary MODIFIED BARIUM SWALLOW STUDY This patient was seen for a Modified Barium Swallow study at the request of her physician, Dr. Berg, ENT. Patient reports she expressed her concerns to her primary care physician who referred her to Dr. Berg. Patient reports the following concerns with her swallowing. She stated that she has difficulty swallowing, which she described as getting her swallow started. She denies actually coughing, choking, or strangling on liquids or solids but reports if she puts her chin down toward her chest, her throat area hurts. Patient also reported frequent coughing, and coughing up phlegm, but denied that she coughs when eating or drinking. Patient expressed concern as her son just recently from esophageal cancer and that cancer runs in her family. This Modified Barium Swallow study was administered to further assess her concerns with initiating the swallow and to determine if compensatory strategies or swallowing exercises would be beneficial. Patient was viewed in the lateral position to the level of C5/C6. Patient was presented with uncontrolled thin liquid contrast medium per cup and later, per straw, pudding mixed with semi- solid contrast medium, and then cracker pieces and fruit pieces in syrup, both coated with the semi- solid mixture. Patient generally elicited quick swallows however there was consistent trace penetration into the upper laryngeal vestibule on each swallow of thin liquid whether directly from cup or from the straw, which was ejected with each swallow leaving no residual in the airway after the completion of each swallow. Given the pudding bite, and only the pudding bite, patient seemed to somewhat pitch forward, drop head, and struggle to elicit the
== END 2023-08-11 13:27 | disposition home or self-care (01) ==
LOC: ANHIMG 13:30
PROVIDERS: PCP Family Medicine; Visit Provider Otolaryngology
DX: R13.10 Dysphagia, unspecified (principal)
CPT/HCPCS: 92611

== ENCOUNTER 2023-09-18 13:00 | Outpatient (RCR) | payer MEDICARE, BC, SELFPAY ==
--- NOTE | 2023-08-28 14:11 | STOPEVAL1 ---
Assessment and note entered by Emily Leone ASSISTANT STORE MANAGER SALES Evaluation Information Assessment Status Evaluation Reported Pain Level Pain Score 0: Self Report Assessment ST Clinical Summary BEDSIDE SWALLOW EVALUATION This patient was seen for an outpatient swallowing evaluation after having had a Modified Barium Swallow study on August 11. That study revealed consistent trace penetration on uncontrolled thin liquid, squeezing back out of the airway with the swallows and with no residual in the airway. Patient also exhibited difficulty with pudding consistency due to its dry, sticky texture, causing her to pitch forward with head down in order to initiate the swallow; she reported that this is how she feels she has to initiate the swallow for dry and heavy foods such as meats and baked potato. Today she states that she understands that these dry or heavy foods tend to require more time to manipulate and initiate the swallow. In general patient expressed that she is very concerned about the initiation of swallow and not so much getting choked. Throughout the course of the conversation, she expressed anxiety with swallowing for two reasons, one is, she stated her father choked to while eating, and the other trigger is that her son recently after suffered swallowing issues with esophageal cancer (but dying of liver cancer). Today the patient consumed thin water per cup, applesauce per spoon, and fruit cocktail per spoon. Today she reports no difficulty with today's consistencies. Nonetheless, she reports that given dry or heavy solids, she has difficulty initiating the swallow. Given the Eating Assessment Tool-10 (EAT-10), she scored 4 out of a possible 40 indicating that the swallowing issues only occurs with certain foods that she has already learned how to modify in order to avoid trouble. Speech Therapy is recommended twice weekly for 2 weeks to address exercises to strengthen the swallow including laryngeal elevation and base of tongue retraction. Additionally, with physician permission, patient
--- NOTE | 2023-09-09 12:35 | OPREHPOC ---
Outpatient Therapy Plan of Care This is a Multidisciplinary Plan of Care that may contain components documented by all disciplines (PT, OT, and ST.) ST Problem 1 ST Problem #[address] Goal 1 Goal 1. Understand anatomy and physiology of the swallow along with safe swallowing techniques, diet modifications, and use and purpose of specific swallowing strengthening exercises. Target Visit [address] Problem #[address] Goal 1 Goal 1. Complete laryngeal elevation exercises up to 10 repetitions with good strength in order to improve epiglottal inversion. 2. Complete base of tongue retraction exercises up to 10 repetitions with good strength to facilitate movement of material through the pharynx to avoid penetration. 3. Complete hard, effortful swallows along with chin tuck against resistance up to 10 repetitions per session in order to improve the strength of the swallow. 4. Voice and demonstrate good understanding of safe swallowing techniques in order to avoid issues with heavy and dry foods. 5. May have VitalStim to the throat at up to 15.0 mA progressing up to 45 minutes to strengthen the muscles for swallowing, with no adverse effects. Target Visit 8
--- NOTE | 2023-09-11 14:12 | PCSTNOTE ---
The patient treatment was not able to be completed on 09/11/23 due to patient was running errands and forgot that her appointment was today. Will plan to continue treatment per plan of care.
--- NOTE | 2023-09-18 15:49 | STOPDC ---
Assessment and note entered by Emily Leone SENIOR ELECTRICAL DESIGNER Evaluation Information Assessment Status Discharge Reported Pain Level Pain Score 0: Self Report Assessment ST Clinical Summary TREATMENT AND DISCHARGE SUMMARY Patient was evaluated for swallowing using Modified Barium Swallow study and then seen for five treatment sessions for improved swallowing skills. Initially patient reported that she feels that she has difficulty initiating the swallow and currently the patient reports that she feels that she is initiating the swallow more quickly now. She completes exercises in therapy room with good strength and loudness, and reports that she has completed them well at home, as well. At the same time, patient reports that she does not feel she has noticed any significant change in her swallowing and that she still has trouble initiating swallows when her throat is dry. Patient completed all exercises up to 10 repetitions today with good strength and loudness. She consumed water with swallows initiated quickly and without effort. Initially patient reported that she felt she was having difficulty initiating the swallow, although she reported no other concerns with her swallowing including choking or food hanging up in the throat. She had recently lost a son to esophageal cancer and he had reported a swallowing problem prior to passing away and she stated that her father choked to when eating and it is possible that these circumstances are/were related to her swallowing complaints. On the Modified Barium Swallow study, patient exhibited trace penetration on liquids which patient never complains about and no signs of penetration have been noted throughout the course of therapy. Patient received one episode of VitalStim to the throat and it was felt that VitalStim was not going to make a significant difference and was discontinued. Patient is discharged with goals achieved and no further skilled Speech Therapy deemed necessary. Home program was established and patient was asked to continue exercise
== END 2023-09-19 09:09 | disposition home or self-care (01) ==
LOC: ANHST 13:00
PROVIDERS: PCP Family Medicine; Visit Provider Otolaryngology
DX: R13.10 Dysphagia, unspecified (principal)
CPT/HCPCS: 92526; 92610; 99199

== ENCOUNTER 2023-11-10 11:50 | Emergency (ER) | payer MEDICARE, BC, SELFPAY ==
--- NOTE | ~2023-11-10 | XR_ITS ---
EXAMINATION: XR hand RT min 3V, XR wrist RT min 3V DATE: 11/10/2023 INDICATION: Right hand and wrist pain post trauma TECHNIQUE: 1. Posteroanterior, ulnar deviation, oblique, and lateral views of the right wrist were obtained. 2. Dorsal palmar, oblique and lateral views of the right hand were obtained. COMPARISON: None. FINDINGS: There is mild palmar subluxation at the second and third metacarpophalangeal joints. Alignment at the right hand and wrist is otherwise normal. No fracture. Polyarticular osteoarthritis, severe at the f irst carpometacarpal, metacarpophalangeal joints and at the second, third and fifth distal interphala ngeal joints. Moderate osteoarthritis at the second and third metacarpophalangeal and at the remainin g interphalangeal joints. Mild osteoarthritis at the wrist, midcarpal, second carpal metacarpal and f ourth and fifth metacarpophalangeal joints. Likely stress related. Articular soft tissue swelling at multiple metacarpophalangeal and interphalangeal joints. IMPRESSION: 1. No acute osseous abnormality at the right hand and wrist. 2. 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 Reviewed, dictated and finalized at location B. IMPRESSION: 1. No acute osseous abnormality at the right hand and wrist. 2. 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
--- NOTE | ~2023-11-10 | CT_ITS ---
EXAMINATION: CT cervical spine wo con DATE: 11/10/2023 13:24 INDICATION: Head injury. TECHNIQUE: Computed tomography (CT) of the cervical spine was performed without intravenous contrast. Automated exposure control and iterative reconstruction technique were employed. The dose-length pro duct was 214.49 mGy-cm. COMPARISON: None FINDINGS: There is mild scarring at the lung apices. There is 2 mm anterolisthesis of C7 on T1, T1 on T2 and T2 on T3. There is 4 degrees levocurvature of cervical spine. Vertebral body heights are norm al. There is severely decreased disc height from C4-C5 through T2-T3. The following disc levels are s pecifically discussed: C2-C3: There is no uncovertebral joint osteoarthritis. There is severe right and mild left facet join t osteoarthritis. There is mild right neural foraminal stenosis. There is mild central canal stenosis . C3-C4: There is mild lateral uncovertebral joint osteoarthritis. There is ankylosis of the facet join ts with severe left hypertrophy. There is mild left neural foraminal stenosis. There is no central ca nal stenosis. C4-C5: There is ankylosis of the uncovertebral joints with severe hypertrophy. There is ankylosis of the facet joints with severe hypertrophy. There is moderate and mild left neural foraminal stenosis. There is mild central canal stenosis. C5-C6: There is severe bilateral uncovertebral joint osteoarthritis. There is severe bilateral facet joint osteoarthritis. There is moderate bilateral neural foraminal stenosis. There is moderate centra l canal stenosis. C6-C7: There is severe bilateral uncovertebral joint osteoarthritis. There is severe bilateral facet joint osteoarthritis. There is mild lateral neural foraminal stenosis. There is moderate central daa l stenosis. C7-T1: There is mild bilateral uncovertebral joint osteoarthritis. There is severe bilateral facet [place] int osteoarthritis. There is mild bilateral neural foraminal stenosis. There is mild central canal st enosis. IMPRESSION: 1. No fracture. 2. Severe cervical spondylosis. Reviewed, dictated and finalized at location A.
--- NOTE | ~2023-11-10 | CT_ITS ---
EXAMINATION: CT lumbar spine wo con DATE: 11/10/2023 13:25 INDICATION: Low back injury. Fall. TECHNIQUE: Computed tomography (CT) of the lumbar spine was performed without intravenous contrast. A utomated exposure control and iterative reconstruction technique were employed. The dose-length produ ct was 250.46 mGy-cm. COMPARISON: None FINDINGS: There is a 4.3 cm cyst in left kidney. There is 19 degrees levoscoliosis of lumbar spine. T here is 3 mm anterolisthesis of L3 on L4. Vertebral body heights are normal. There is severely decrea sed disc height from T10-T11 through L5-S1. The following disc levels are specifically discussed: L1-L2: The disc is bulging. There is severe bilateral facet joint osteoarthritis. There is mild right and moderate left neural foraminal stenosis. There is mild central canal stenosis. L2-L3: The disc is bulging. There is severe bilateral facet joint osteoarthritis. There is moderate r ight and mild left neural foraminal stenosis. There is moderate central canal stenosis. L3-L4: The disc is bulging. There is severe right and moderate left facet joint osteoarthritis. There is moderate right and mild left neural foraminal stenosis. There is mild central canal stenosis. L4-L5: The disc is bulging. There is severe bilateral facet joint osteoarthritis. There is moderate b ilateral neural foraminal stenosis. There is moderate central canal stenosis. L5-S1: The disc is bulging. There is severe bilateral facet joint osteoarthritis. There is moderate b ilateral neural foraminal stenosis. There is mild central canal stenosis. IMPRESSION: 1. No fracture. 2. Severe lumbar spondylosis. 3. Lumbar levoscoliosis. Reviewed, dictated and finalized at location A.
--- NOTE | ~2023-11-10 | CT_ITS ---
EXAMINATION: CT brain wo con DATE: 11/10/2023 13:24 INDICATION: Head injury. Fall. Dizziness. TECHNIQUE: Computed tomography (CT) of the head was performed without intravenous contrast. The mA wa s adjusted according to patient size. Iterative reconstruction technique was employed. The dose-lengt h product was 681.00 mGy-cm. COMPARISON: Head CT 01/03/2021 FINDINGS: There are scattered areas of low attenuation in the cerebral white matter, which is within normal limits for the patient's age. There is no intracranial hemorrhage, acute infarction, or abnorm al intracranial mass lesion. The ventricles are normal in size. There are likely changes of ocular le ns replacement surgeries. There is mild mucosal thickening in the ethmoid sinuses. The mastoid air ce lls are normal. There is a left frontal scalp laceration. IMPRESSION: 1. Normal aging brain. Reviewed, dictated and finalized at location A. IMPRESSION: 1. Normal aging brain.
[2023-11-10 11:50] VITALS: BP 144/88; PULSE 42; RESP 14; TEMP 36.8; O2SAT 100
--- NOTE | 2023-11-10 12:35 | ED.FALL ---
HPI - Fall General Chief Complaint: Fall Stated Complaint: fall, head lac Time Seen by Provider: 11/10/23 12:01 History of Present Illness HPI Narrative: patient is a 88-year-old female who presents ER after a fall. She was walking in her garage when she tripped and fell. She struck her head on the ground and has laceration to her left forehead. No LOC. Tetanus up-to-date. Patient also reports pain to the right low back as well as the right wrist. No limitation in range of motion to the right wrist. Denies numbness or tingling in the arms or legs. She is on no blood thinning medications. No alleviating factors for her discomfort. She has not taken anything. Related Data Home Medications Medication Instructions Recorded Confirmed cyanocobalamin (vitamin B-12) 500 500 mcg PO DAILY 01/03/21 10/13/23 mcg tablet lactobacillus combination no.4 3 3 cell PO DAILY 01/03/21 10/13/23 billion cell capsule (Probiotic) magnesium 250 mg tablet 250 mg PO DAILY 01/03/21 10/13/23 psyllium husk (aspartame) 3 gram 1 packet PO DAILY 01/03/21 10/13/23 oral powder packet (Daily Fiber (psyllium-aspartame)) turmeric 100 mg-ge 150 1 cap PO DAILY 01/03/21 10/13/23 mg-olive 50 mg-oreg 150 mg-capryl capsule ascorbate calcium (vitamin C) 500 500 mg PO DAILY 09/11/21 10/13/23 mg tablet calcium carbonate 600 mg-vitamin 2 tablet PO DAILY 09/11/21 10/13/23 D3 5 mcg (200 unit) tablet (Calcium 600 + D(3)) cholecalciferol (vitamin D3) 50 50 mcg PO DAILY 09/11/21 10/13/23 mcg (2,000 unit) capsule (Vitamin D3) mirabegron 25 mg tablet,extended 50 mg PO DAILY 12/13/21 10/13/23 release 24 hr (Myrbetriq) polyethylene glycol 3350 17 gram 17 g PO DAILY 04/30/23 10/13/23 oral powder packet (ClearLax) Allergies Allergy/AdvReac Type Severity Reaction Status Date / Time cephalexin Allergy Unknown Unknown Verified 11/10/23 12:06 chlorpheniramine Allergy Unknown Unknown Verified 11/10/23 12:06 guaifenesin Allergy Unknown Unknown Verified 11/10/23 12:06 phenylephrine Allergy Unknown Unknown Verified 11/10/23 12:06 phenylpropanolamine Allergy Unknown Unknown Verified 11/10/23 12:06 prednisone Allergy Unknown Unknown Verified 11/10/23 12:06 pseudoephedrine Allergy Unknown Unknown Verified 11/10/23 12:06 sulfamethoxazole Allergy Unknown Unknown Verified 11/10/23 12:06 trimethoprim Allergy Unknown Unknown Verified 11/10/23 12:06 duloxetine AdvReac Nausea and Verified 11/10/23 12:06 Vomiting Review of Systems Review of Systems: All systems reviewed & are unremarkable except as noted in HPI and below Constitutional: Constitutional: Reports no additional constitutional complaints ENT: Reports system reviewed and no additional complaints, except as documented Cardiovascular: Cardiovascular: Reports no additional cardiovascular complaints Respiratory: Respiratory: Reports no additional respiratory complaints Gastrointestinal: Gastrointestinal: Reports no additional gastrointestinal complaints Musculoskeletal: Musculoskeletal: Reports back pain, Reports arthralgias and Denies joint swelling Neurologic: Denies syncope, Reports headache(s), Denies focal weakness and Denies numbness PMFSH Past Medical History Medical History Cervicalgia Chronic constipation Fibromyalgia Hereditary and idiopathic neuropathy History of small bowel obstruction Hyperlipidemia Ovarian cancer Peripheral neuropathy SBO (small bowel obstruction) Scalp itch Surgical History Surgical History H/O repair of left rotator cuff H/O: hysterectomy History of bilateral oophorectomy History of removal of Port-a-Cath History of tonsillectomy History of total right knee replacement Family History Family History Father Asthma Diabetes mellitus Mother Lung cancer Liver cancer Bra
[2023-11-10] MEDS: ACETAMINOPHEN 325 MG TABLET 650 MG PO (12:48)
[2023-11-10 12:49] VITALS: BP 131/73; PULSE 63; RESP 14; O2SAT 100
== END 2023-11-10 15:10 | disposition home or self-care (01) ==
PROVIDERS: Emergency Provider Emergency Medicine; PCP Family Medicine
DX: S01.81XA Laceration without foreign body of other part of head, initial encounter (principal); S63.501A Unspecified sprain of right wrist, initial encounter; M79.7 Fibromyalgia; G60.9 Hereditary and idiopathic neuropathy, unspecified; E78.5 Hyperlipidemia, unspecified; Z96.651 Presence of right artificial knee joint; Z85.41 Personal history of malignant neoplasm of cervix uteri; Z90.710 Acquired absence of both cervix and uterus; Z90.722 Acquired absence of ovaries, bilateral; M47.812 Spondylosis without myelopathy or radiculopathy, cervical region; M19.041 Primary osteoarthritis, right hand; M18.9 Osteoarthritis of first carpometacarpal joint, unspecified; M19.031 Primary osteoarthritis, right wrist; W01.0XXA Fall on same level from slipping, tripping and stumbling without subsequent striking against object, initial encounter
CPT/HCPCS: 12013; 70450; 72125; 72131; 73110; 73130; 99284; A9270

== ENCOUNTER 2024-01-13 14:34 | Outpatient (CLI) | payer MEDICARE, BC, SELFPAY ==
--- NOTE | 2024-01-13 14:50 | ECHO_ITS ---
Patient Info Name: Dawna Cruz Age: 88 years : 1935 Gender: Female Ht: 60 in Wt: 113 lbs BSA: 1.48 m2 HR: 75 bpm BP: 112 / 58 mmHg Heart Rhythm: Sinus Rhythm Technical Quality: Good Exam Date: 01/13/2024 3:09 PM Exam Location: Echo Lab Patient Status: Outpatient Admit Date: 01/13/2024 Staff Ordering Physician: Salvador Laurent DO [employer] Curator: Arnol Nagy RDCS Attending Provider: Salvador Laurent DO Referring Physician: Mehran TORRES; Exam Type: CA echo doppler color flow Study Info Indications - nonrheumatic aortic valve insufficency Complete two-dimensional, color flow and Doppler transthoracic echocardiogram is performed. Summary 1. Complete two-dimensional, color flow and Doppler transthoracic echocardiogram is performed. 2. Left ventricular chamber dimension is normal. 3. Left ventricular systolic function is normal, estimated at 65-70%. 4. The left ventricular diastolic function is grade I diastolic dysfunction. 5. E/e' 15 is elevated. 6. There is moderate aortic valve sclerosis. 7. There is mild aortic valve regurgitation. 8. The mitral valve has mildly calcified annulus. 9. There is trace tricuspid valve regurgitation. 10. No pulmonary hypertension, estimated pulmonary arterial systolic pressure is 22 mmHg. Left Ventricle E/e' 15 is elevated. Left ventricular chamber dimension is normal. Left ventricular systolic function is normal, estimated at 65-70%. The left ventricular diastolic function is grade I diastolic dysfunction. Right Ventricle Right ventricular systolic function is normal and with normal TAPSE 2.4 cm. Right ventricular chamber dimension is normal. Left Atria Left atrial chamber dimension is normal. Right Atria Right atrial chamber dimension is normal. Aortic Valve The aortic valve is trileaflet. There is moderate aortic valve sclerosis. There is no aortic valve stenosis. There is mild aortic valve regurgitation. Pulmonic Valve There is no pulmonic regurgitation. Mitral Valve The mitral valve has mildly calcified annulus. There is no mitral valve stenosis. There is no mitral valve regurgitation. Tricuspid Valve There is trace tricuspid valve regurgitation. No pulmonary hypertension, estimated pulmonary arterial systolic pressure is 22 mmHg. Pericardium/Pleural There is no pericardial effusion. Inferior Vena Cava Normal inferior vena cava with >50% collapse upon inspiration consistent with normal right atrial pressure, 5 mmHg. Aorta The aortic root size at the sinus of Valsalva is normal. Left Ventricular Outflow Tract Name Value Normal LVOT 2D LVOT Diameter 2.0 cm LVOT Doppler LVOT Peak Gradient 4 mmHg LVOT Mean Gradient 2 mmHg LVOT VTI 24 cm LVOT VTI/AV VTI Ratio 0.9 LVOT Stroke Volume 75 ml LVOT CO 4.1 l/min LVOT CI 2.8 l/min/m2 Pulmonic Valve Name Value Normal
== END 2024-01-13 14:35 | disposition home or self-care (01) ==
LOC: ANHCARD 14:36
PROVIDERS: PCP Family Medicine; Visit Provider Internal Medicine Cardiovascular Disease
DX: I35.1 Nonrheumatic aortic (valve) insufficiency (principal)
CPT/HCPCS: 93306

== ENCOUNTER 2024-05-14 09:52 | Emergency (ER) | payer MEDICARE, BC, SELFPAY ==
--- NOTE | ~2024-05-14 | XR_ITS ---
EXAMINATION: XR chest 2V DATE: 05/14/2024 10:33 INDICATION: Cough and congestion. TECHNIQUE: Frontal and lateral views of the chest were obtained. COMPARISON: Chest 2 views 05/20/2023 FINDINGS: Calcified bilateral lung nodules and calcified hilar and mediastinal lymph nodes are consis tent with old granulomatous disease. No pleural effusion or pneumothorax. The heart size is normal. T here are old healed rib fractures. IMPRESSION: 1. No acute cardiopulmonary disease. Reviewed, dictated and finalized at location A. TECHNICIAN
--- NOTE | 2024-05-14 10:06 | ED.URI ---
HPI - URI/Sore Throat General Chief Complaint: Upper Respiratory Infection Stated Complaint: Chills History of Present Illness HPI Narrative: Pt is an 88-year-old female who presents to urgent care with complaints of chills but upon further investigation she has also been experiencing polyuria, productive cough, and cold extremities. She reports she has been coughing up clear phlegm for a few weeks. Pt reports Last night I couldn't sleep. I only slept for about two hours. My legs both felt really cold, but when I touched them they were normal temperature. Then this morning I woke up and I was just shaking. Pt reports she did not take her temperature at home, so she is unsure if she's been febrile. She denies a history of high blood pressure, diabetes, or asthma. Pt denies chest pain, back pain, headache, abdominal pain, or lower extremity swelling. She reports she taking a seasonal allergy medication at home. MD elicited complaint: cough and nasal congestion Onset (ago): week(s) Related Data Home Medications Medication Instructions Recorded Confirmed cyanocobalamin (vitamin B-12) 500 500 mcg PO DAILY 01/03/21 05/14/24 mcg tablet lactobacillus combination no.4 3 3 cell PO DAILY 01/03/21 05/14/24 billion cell capsule (Probiotic) magnesium 250 mg tablet 250 mg PO DAILY 01/03/21 05/14/24 psyllium husk (aspartame) 3 gram 1 packet PO DAILY 01/03/21 05/14/24 oral powder packet (Daily Fiber (psyllium-aspartame)) turmeric 100 mg-ge 150 1 cap PO DAILY 01/03/21 05/14/24 mg-olive 50 mg-oreg 150 mg-capryl capsule ascorbate calcium (vitamin C) 500 500 mg PO DAILY 09/11/21 05/14/24 mg tablet calcium 600 mg (as 2 tablet PO DAILY 09/11/21 05/14/24 carbonate)-vitamin D3 5 mcg (200 unit) tablet (Calcium 600 + D(3)) cholecalciferol (vitamin D3) 50 50 mcg PO DAILY 09/11/21 05/14/24 mcg (2,000 unit) capsule (Vitamin D3) mirabegron 25 mg tablet,extended 50 mg PO DAILY 12/13/21 05/14/24 release 24 hr (Myrbetriq) docusate sodium 100 mg capsule 100 mg PO DAILY 05/14/24 05/14/24 (Stool Softener) meloxicam 7.5 mg tablet 7.5 mg PO DAILY 05/14/24 05/14/24 Allergies Allergy/AdvReac Type Severity Reaction Status Date / Time chlorpheniramine Allergy Unknown Unknown Verified 05/14/24 10:05 guaifenesin Allergy Unknown Unknown Verified 05/14/24 10:05 phenylephrine Allergy Unknown Unknown Verified 05/14/24 10:05 phenylpropanolamine Allergy Unknown Unknown Verified 05/14/24 10:05 prednisone Allergy Unknown Unknown Verified 05/14/24 10:05 pseudoephedrine Allergy Unknown Unknown Verified 05/14/24 10:05 sulfamethoxazole Allergy Unknown Unknown Verified 05/14/24 10:05 trimethoprim Allergy Unknown Unknown Verified 05/14/24 10:05 cephalexin AdvReac Unknown Unknown Verified 05/14/24 10:05 duloxetine AdvReac Unknown Nausea and Verified 05/14/24 10:02 Vomiting Review of Systems Review of Systems: All systems reviewed & are unremarkable except as noted in HPI and below PMFSH Past Medical History Medical History Cervicalgia Chronic constipation Fibromyalgia Hereditary and idiopathic neuropathy History of small bowel obstruction Hyperlipidemia Ovarian cancer Peripheral neuropathy SBO (small bowel obstruction) Scalp itch Surgical History Surgical History H/O repair of left rotator cuff H/O: hysterectomy History of bilateral oophorectomy History of removal of Port-a-Cath History of tonsillectomy History of total right knee replacement Family History Family History Father Asthma Diabetes mellitus Mother Lung cancer Liver cancer Brain cancer Sibling Bone cancer Other Bone cancer Other Breast cancer Social History Social History Social History: the patient became many years ago. The patient had 2 children and 1 daughter of rye syndrome. The patient has 1 daughter left who is in contact with her. The patient is listed as a full code. She lives home alone is very active. 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 lifelong nonsmoker Smoking status: Never smoker Second hand tobacco smoke exposure: No Alcohol intake: former Substance use: never Substance use type: does not use Lack of Transportation: No Lack of Food: Never True Current Housing: I Have Housing Concerned About Future Housing: No Difficulty Paying Gas/Electric Bills: No Difficulty Paying for Meds: No Currently Unemployed: No Education: High School Diploma/GED Difficulty w/ Childcare or Family Care: No Living arrangements: alone Occupation/Education: retired Gender identity (if verbalized by the patient): Female Spiritual care concerns: No Exam Const: General: no acute distress (mild distress d/t shaking ) and alert Nutritional Appearance: thin Orientation/consciousness: patient oriented x3 Limitations: other limitations (hard of hearing) HENMT: Head: normal to inspection Ears: external ears normal Face/Nose/Sinus: Normal external nose present Face and sinus: normal facial exam and sinuses nontender Mouth: Yes Normal oral and palatal mucosa present Teeth and gingiva: dentition normal Throat: posterior oropharynx normal and uvula midline Other: pharynx is red, but no noticeable pus pockets, post-nasal drip or edema Eyes: Conjunctivae: conjunctivae normal Pupils: Equal, round and reactive pupils present EOM: EOMs intact bilaterally Neck: Neck: normal visual inspection, no lymphadenopathy and no meningeal signs Chest: Chest palpation & inspection: normal inspection of the chest Resp: Effort & Inspection: normal respiratory effort Cardio: Rate: regular rate Rhythm: regular rhythm GI: GI Palp: Yes Soft to palpation Auscultation: normal bowel sounds Back/Spine/Pelvis: Back: no CVA tenderness Skin: General skin exam: normal color Neuro: General: patient oriented x3 and moves all extremities Speech: normal speech Gait exam (Neuro): Normal gait present Extrem: General: normal to inspection, no clubbing, cyanosis or edema and no pedal edema Psych: Mental Status: mental status grossly normal Affect: Anxious affect present (Pt states I just don't know what's wrong with me. ) Course Course Level of Care: Express Care Visit Vital Signs Vital signs: Vital Signs Temperature 36.5 C 05/14/24 10:07 Pulse Rate 62 05/14/24 10:07 Respiratory Rate 16 05/14/24 10:07 Blood Pressure 122/82 05/14/24 10:07 Pulse Oximetry 100 05/14/24 10:07 Temperature 36.5 C 05/14/24 10:12 Pulse Rate 62 05/14/24 10:12 Respiratory Rate 16 05/14/24 10:12 Blood Pressure 122/82 05/14/24 10:12 Pulse Oximetry 100 05/14/24 10:12 MDM - URI/Sore Throat MDM Narrative Medical decision making narrative: Pt is an 88-year-old female who presents to urgent care with complaints of chills but upon further investigation she has also been experiencing polyuria, productive cough, and cold extremities. She reports she has been coughing up clear phlegm for a few weeks. Pt reports Last night I couldn't sleep. I only slept for about two hours. My legs both felt really cold, but when I touched them they were normal temperature. Then this morning I woke up and I was just shaking. Pt reports she did not take her temperature at home, so she is unsure if she's been febrile. She denies a history of high blood pressure, diabetes, or asthma. Pt denies chest pain, back pain, headache, abdominal pain, or lower extremity swelling. She also reports she takes a daily allergy medicine at home. Tests: -Will order POC glucose, UA, COVID/flu swab, and chest x-ray. Results: - chest x-ray indicates: Calcified bilateral lung nodules and calcified hilar and mediastinal lymph nodes are consistent with old granulomatous disease. No pleural effusion or pneumothorax. The heart size is normal. There are old healed rib fractures. -POC glucose: 63- pt given multiple packs of crackers to eat -COVID/flu swab: negative -UA: negative for any abnormalities Diagnosis: low blood sugar with unknown cause Plan: -strep culture ordered, as POC was negative -discharge home with strict orders to go to the ER if symptoms return Shared MDM: An extensive amount of time was spent discussing results and plan with pt. Pt was informed her tests indicate she doesn't have a UTI, COVID, pneumonia, influenza, or strep throat. She was given crackers after her tests were all collected and resulted. Pt endorses that the food made me feel better and I'm no longer shaking. She also reports her doctor has told me before that I need to eat in between meals and I should eat something with protein. PLANNING TECHNICIAN advised pt to eat small meals every 2-3 hours throughout the day and to have a snack before she goes to bed each night. If pt's symptoms of shakiness return, or if she has any other worsening symptoms, pt should go to the ER, as further testing would be advised to determine why pt is experiencing these symptoms. Pt follow-up with her primary care provider next week. She should continue taking all of her home medications as prescribed. Pt verbalizes understanding and is in agreement with plan for discharge home. Differential Diagnosis Differential diagnosis: Likely upper respiratory infection, sinusitis, viral infection, bronchitis, influenza and other (urinary tract infection, strep throat, atypical pneumonia, hypoglycemia) Lab Data Attestation: I reviewed the patient's lab results. Labs: Lab Results 05/14/24 05/14/24 05/14/24 Range/Units 10:40 10:41 10:44 POC Capillary Glucose 63 L (65-105) mg/dl POC Urine Color Light/pale POC Urine Clarity Clear POC Urine pH 8.5 POC Ur Specif [place] 1.020 POC Urine Protein Negative (Negative) POC Ur Glucose (UA) Negative (Negative) POC Urine Ketones Negative (Negative) POC Urine Blood Negative (Negative) POC Urine Nitrite Negative (Negative) POC Urine Bilirubin Negative (Negative) POC Urine Urobilinogen 0.2 POC U Leukocyte Esteras Negative (Negative) POC Influenza A Ag Negative (Negative) POC Influenza B Ag Negative (Negative) POC SARS CoV-2 Ag Negative (Negative) POC Grp A Strep Screen Negative (Negative) Imaging Data Attestation: I personally reviewed and interpreted this imaging study as follows: Radiologist's impression: Impressions Chest X-Ray 05/14/24 10:34 IMPRESSION: 1. No acute cardiopulmonary disease. Discharge Plan Discharge Clinical Impression: Low blood sugar, Episode of shaking, Seasonal allergic rhinitis Patient Disposition: Home, Self-Care Condition: Stable Instructions: Antibiotic Form, Allergies (ED), What to Do if Your Blood Sugar is Low (ED) Additional Instructions: As we discussed, please go to the emergency department if your symptoms return, worsen, or if new symptoms develop. Continue to take all your prescribed medicines at home. Follow-up with your primary care provider next week. Try to eat every 2-3 hours during the day and eat a snack before going to bed at night. Prescriptions: No Action meloxicam 7.5 mg Tablet 7.5 mg PO DAILY docusate sodium [Stool Softener] 100 mg Capsule 100 mg PO DAILY calcium carbonate-vitamin D3 [Calcium 600 + D(3)] 600 mg-5 mcg (200 unit) tablet 2 tablet PO DAILY cholecalciferol (vitamin D3) [Vitamin D3] 50 mcg (2,000 unit) capsule 50 mcg PO DAILY ascorbate calcium (vitamin C) 500 mg tablet 500 mg PO DAILY magnesium 250 mg Tablet 250 mg PO DAILY Probiotic 3 billion cell Capsule 3 cell PO DAILY Daily Fiber (psyllium-aspart) 3 gram Powder In Packet 1 packet PO DAILY zfdnvnup-gxoe-wbxdg-oreg-capry 100 mg-150 mg- 50 mg-150 mg Capsule 1 cap PO DAILY cyanocobalamin (vitamin B-12) 500 mcg Tablet 500 mcg PO DAILY mirabegron [Myrbetriq] 25 mg Tablet Extended Release 24 Hr 50 mg PO DAILY simvastatin 40 mg tablet 40 mg PO DAILY Qty: 90 1RF pregabalin [Lyrica] 75 mg capsule 75 mg PO BID Qty: 180 0RF Follow-up/Referrals: Blaise Clifford DO [Primary Care Provider] - Time of Disposition: 11:36
[2024-05-14 10:07] VITALS: BP 122/82; PULSE 62; RESP 16; TEMP 36.5; O2SAT 100
[2024-05-14 10:12] VITALS: BP 122/82; PULSE 62; RESP 16; TEMP 36.5; O2SAT 100
[2024-05-14 10:43] LABS: Glucose Point of Care 63 mg/dl (65-105)
[2024-05-17 10:01] LABS: EDUAAPPEAR Clear; EDUABILI Negative (Negative); EDUABLOOD Negative (Negative); EDUACOLOR1 Light/Pale; EDUAGLUCOSE Negative (Negative); EDUAKETONE Negative (Negative); EDUALEUKO Negative (Negative); EDUANITRATE Negative (Negative); EDUAPH 8.5; EDUAPROTEIN Negative (Negative); EDUAUROBILI 0.2
[2024-05-17 10:01] LABS: EDCOVIDSCREEN Negative (Negative); EDINFLUASCREEN Negative (Negative); EDINFLUBSCREEN Negative (Negative); EDSTREPNEGPOS1 Negative (Negative)
== END 2024-05-14 11:40 | disposition home or self-care (01) ==
PROVIDERS: Emergency Provider Registered Nurse; PCP Family Medicine
DX: E16.2 Hypoglycemia, unspecified (principal); R25.1 Tremor, unspecified; J30.2 Other seasonal allergic rhinitis; Z20.822 Contact with and (suspected) exposure to COVID-19; M79.7 Fibromyalgia; E78.5 Hyperlipidemia, unspecified; G62.9 Polyneuropathy, unspecified; Z85.43 Personal history of malignant neoplasm of ovary
CPT/HCPCS: 71046; 81003; 82948; 87081; 87426; 87804; 87880; 99213; G0463

== ENCOUNTER 2024-11-01 13:19 | Outpatient (CLI) | payer MEDICARE, BC, SELFPAY ==
--- OUTSIDE RECORDS SUMMARY | 2024-11-01 13:57 | XMS_ITS | CONTINUITY OF CARE DOCUMENT ---
Author Name robinjulieva Address Unknown Organization [facility] Office Address [address] [place] [address] [address] [place] [address] Phone [phone] Care Team Providers Care Account Administrator Name Role Phone Jose GANN, Ashley Unavailable YARA CURRY MD Unavailable [phone] INSURANCE PROVIDERS Payer name Policy type / Coverage type [place] [employer] party ID [facility] [id number] 1 [place] [employer] Medicare [id number]
--- OUTSIDE RECORDS SUMMARY | 2024-11-01 13:57 | XMS_ITS | Encounter Summary ---
Author Organization [facility] Health Address [address] [facility] [place] [address] Care Team Providers Care Salesperson Men'S Furnishings Name Role Phone Mita Duque DO Primary Care Provider [phone] Stacy Munoz MD Unavailable [phone] Encounter Details Date Type Department Care Team (Late st Contact Info) Description 02/28/2012 [facility] Outpatient Visit [facility] Orthoped[facility] [address] [facility] [address] [place] [address] [place] [address] [facility] [address] [place] [address] Social History Tobacco Use Types Packs/Day Years Used Date Smoking Tobacco: Never Smokeless Tobacco: Never Alcohol Use Standard Drinks/Week Comments Yes 0 (1 standard drink = 0.6 oz pur e alcohol) Comments Unknown Sex and Gender Information Value Date Recorded Sex Assigned at Not on file Legal Sex Female 10:02 AM RANCH HAND Gender Identity Not on file Sexual Orientation Not on file documented as of this encounter Plan of Treatment Not on file documented as of this encounter Visit Diagnoses Not on filedocumented in this encounter Care Teams Salesperson Men'S Furnishings Relationship Specialty Start Date End Date Mita Duque DO [address] [place] [address] PCP - General 08/23/10 Stacy Munoz MD [address] [place] [address] Orthopedic Surgery 03/13/12 documented as of this encounter
--- OUTSIDE RECORDS SUMMARY | 2024-11-01 13:57 | XMS_ITS | Referral Summary ---
Author Organization [facility] [address] Address [address] [place] [address] Care Team Providers Care Children'S Service Supervisor Name Role Phone Reese Alcazar MD Primary Care Provider [phone] Allergies Active Allergy Reactions Criticality Noted Date Comments Cephalexin Unknown 07/25/2016 Prednisone Unknown 07/25/2016 Medications aspirin 325 mg tablet Take 325 mg by mouth daily Active docusate sodium (COLACE) 100 mg capsule 100 mg daily Active polyethylene glycol (MIRALAX) 17 gram packet daily Activ e pregabalin (LYRICA) 75 mg capsule Take 75 mg by mouth 2 (two) times a day 08/02/2020 Active simvastatin (ZOCOR) 40 mg tablet Take 40 mg by mouth nightly Active ascorbic acid (ascorbic acid with karolina hips) 500 mg tablet,chewable 500 mg daily A ctive wqcl-hjd-aiq-gato -okzb-noau-wun (Fiber 6) 1,000 mg tablet Rx: Fiber - Capsule Active Lactobacillus acidophilus (PROBIOTIC ORAL) Take by mouth Active sennosides 8.6 mg capsule Take by mouth Active TURMERIC ORAL Take by mouth Active magnesium oxide (MAG-OX) 250 mg (150.8 mg elemental) tabletIndication s:hypomagnesemia 250 mg daily Active calcium carbonate/vitami n D3 (CALCIUM 600 + D,3, ORAL) Take by mouth Active Active Problems Problem Noted Date Diagnosed Date Pain of right sacroiliac joint 12/25/2020 Left shoulder pain 12/25/2020 s/p right open rotator cuff repair and acromioplasty on 11/01/[address] Munoz at [facility] 09/21/2020 Bilateral impacted cerumen 08/07/2020 Pharyngoesophageal dysphagia 08/07/2020 Social History Tobacco Use Types Packs/Day Years Used Date Smoking Tobacco: Never Smokeless Tobacco: Never Alcohol Use Standard Drinks/Week Comments Never 0 (1 standard drink = 0.6 oz pur e alcohol) AUDIT-C Answer Date Recorded Q1: How often do you have a drink containing alc ohol? Never 08/07/2020 Average Number of Drinks Not on file 021 Frequency of Binge Drinking Not on file 01/2021 Personal Safety Answer Date Recorded Getting School Help Needed Not on file 09/12 Comments Unknown Sex and Gender Information Value Date Recorded Sex Assigned at Not on file Legal Sex Female 12:12 PM SAP TREASURY CONSULTANT Gender Identity Not on file Sexual Orientation Not on file Occupation Industry Job Start Date Job End Date retired Not on file Not on file Not on file Last Filed Vital Signs Vital Sign Reading Time Taken Comments Blood Pressure 110/53 10/19/2016 3:08 PM CDT Pulse 70 10/19/2016 3:08 PM CDT Temperature 37.1 C (98.7 F) 08/07/2020 10:20 AM SAP TREASURY CONSULTANT Respiratory Rate - - Oxygen Saturation 95% 10/19/2016 3:08 PM CDT Inhaled Oxygen Concentration - - Weight 55.3 kg (122 lb) 01/02/2021 9:20 AM CDT Height 158.8 cm (5' 2.5 ) 01/02/2021 9:20 AM CDT Body Mass Index 21.96 01/02/2021 9:20 AM CDT Plan of Treatment Not on file Insurance MEDICARE [facility] MEDICARE [facility] MEDICARE [facility] OOS Member Subscriber Plan / Payer (Ef fective 2011-Present) Name:Dawna Cruz Relation to Subscriber:Self Name:Dawna Cruz Payer ID:[id number] (NAIC) Type: ALLIANCE Address: [id number] [place] [id number] Care Teams Children'S Service Supervisor Relationship Specialty Start Date End Date Reese Alcazar MD PCP - General Internal Medicine 07/27/20
--- OUTSIDE RECORDS SUMMARY | 2024-11-01 13:57 | XMS_ITS | Encounter Summary ---
Author Organization [facility] Health Address [address] [facility] [place] [address] Care Team Providers Care Student Support Advisor Name Role Phone Mita Duque DO Primary Care Provider Stacy Munoz MD Unavailable [phone] Encounter Details Date Type Department Care Team (Late st Contact Info) Description 02/05/2012 [facility] Outpatient Visit [facility]NAL [facility] [place] [address] [facility] [address] [place] [address] Social History Tobacco Use Types Packs/Day Years Used Date Smoking Tobacco: Never Smokeless Tobacco: Never Alcohol Use Standard Drinks/Week Comments Yes 0 (1 standard drink = 0.6 oz pur e alcohol) Comments Unknown Sex and Gender Information Value Date Recorded Sex Assigned at Not on file Legal Sex Female 10:02 AM STUDENT SUPPORT ADVISOR Gender Identity Not on file Sexual Orientation Not on file documented as of this encounter Plan of Treatment Not on file documented as of this encounter Visit Diagnoses Not on filedocumented in this encounter Care Teams Student Support Advisor Relationship Specialty Start Date End Date Mita Duque DO [address] [place] [address] PCP - General 08/23/10 Stacy Munoz MD [address] [place] [address] Orthopedic Surgery 03/13/12 documented as of this encounter
--- OUTSIDE RECORDS SUMMARY | 2024-11-01 13:57 | XMS_ITS | Clinical Summary ---
Author Organization [facility] [address] Address [address] [place] [address] Care Team Providers Care Acid Maker Name Role Phone Reese Alcazar MD Primary Care Provider [phone] Allergies Active Allergy Reactions Criticality Noted Date [...] mg tablet,chewable 500 mg daily A ctive mmlr-vuo-kap-gato -ijyw-mvdb-tjg (Fiber 6) 1,000 mg tablet Rx: Fiber [...] acromioplasty on 11/01/[address] Munoz at [facility] 09/21/2020 Bilateral impacted cerumen 08/07/2020 Pharyngoesophageal dysphagia 08/07/2020 Surgical History Surgery Date Site/Laterality Comments REPLACEMENT TOTAL KNEE Medical History Medical History Date Comments Allergic rhinitis Cancer (HCC) Cataracts, bilateral HL (hearing loss) Lumbar spondylosis Retrolisthesis of vertebrae Mild grade 1 L3 on L4, L4 on L5 Scoliosis deformity of spine DDD (degenerative disc disease), lumbar Bilateral primary osteoarthritis of hip 10/31/19 21 Mild Pain of right sacroiliac joint Family History Medical History Relation Name Comments Cancer Mother Cancer Mother's Sister Cancer Sister Relation Name Status Comments Mother Mother's Sister Sister Social History Tobacco Use Types Packs/Day Years [...] on file Legal Sex Female 12:12 PM INSIDE TRUCKER Gender Identity Not on file Sexual Orientation Not on file Occupation Industry Job Start Date Job End Date retired Not on file Not on file Not on file Obstetrics History Last Filed Vital Signs Vital Sign Reading Time Taken Comments Blood Pressure 110/53 10/19/2016 3:08 PM CDT Pulse 70 10/19/2016 3:08 PM CDT Temperature 37.1 C (98.7 F) 08/07/2020 10:20 AM INSIDE TRUCKER Respiratory Rate - - Oxygen Saturation 95% 10/19/2016 3:08 PM CDT Inhaled Oxygen Concentration - - Weight 55.3 kg (122 lb) 01/02/2021 9:20 AM CDT Height 158.8 cm (5' 2.5 ) 01/02/2021 9:20 AM CDT Body Mass Index 21.96 01/02/2021 9:20 AM CDT Plan of Treatment Not on file Insurance MEDICARE [facility] MEDICARE [facility] MEDICARE [facility] OOS Care Teams Acid Maker Relationship Specialty Start Date End Date Reese Alcazar MD PCP - General Internal Medicine 07/27/20
--- OUTSIDE RECORDS SUMMARY | 2024-11-01 13:57 | XMS_ITS | Clinical Summary ---
Author Organization [facility] Address [address] [facility] [place] [address] Care Team Providers Care Professor Computer Science Name Role Phone Mita Duque DO Primary Care Provider [phone] Stacy Munoz MD Unavailable [phone] Source Comments [facility],non-owned Affiliates and Associated Physician Practices is amultiple site organization consisting of ambulatory clinics and hospital sitesin [place], [place], [place] and [place]. This disclosure is being madepursuant to the Care Everywhere program and may not contain all information available regarding this patient. Last updated 18.[facility] Allergies Active Allergy Reactions Criticality Noted Date Comments Prednisone 04/17/2012 DIZZINESS, NAUSEA, PAIN IN STOMACH Medications * Be aware that medications may not be up to date on this document. Alwaysverify current medications with the patient. Multiple Vitamin (STRESSTAB 600) tablet Take 1 Tab by mouth once daily. Active Ascorbic Acid (VITAMIN C CR PO) Take 500 mg by mouth once daily. Active Calcium Carbonate-Vitami n D (CALCIUM-D PO) Take 600 mg by mouth. Active aspirin 325 MG tablet Take 325 mg by mouth once daily. Active DULoxetine (CYMBALTA) 60 MG capsule Take 60 mg by mouth once daily. Active simvastatin (ZOCOR) 40 MG tablet Take 40 mg by mouth at bedtime. Active Zinc Gluconate (ZINC) 100 MG TABS Take by mouth. Active hydrocodone-acet aminophen (NORCO) 7.5-325 MG tablet Take 1 Tab by mouth every 4 hours as needed for Pain. 40 Tab 0 12/27/2011 Active esomeprazole (NEXIUM) 40 MG capsule Take 40 mg by mouth daily before breakfast. Active Active Problems Problem Noted Date Diagnosed Date Follow-up examination, SX 11/01/11 PO Repair of rotator cuff with anterior acromioplasty 11/13/2011 Rotator cuff tear, right 10/24/2011 Family History Medical History Relation Name Comments Diabetes Father Cancer Mother lung liver brai n Cancer Sister bone Relation Name Status Comments Father Mother Sister Social History Tobacco Use Types Packs/Day Years Used Date Smoking Tobacco: Never Smokeless Tobacco: Never Alcohol Use Standard Drinks/Week Comments Yes 0 (1 standard drink = 0.6 oz pur e alcohol) Comments Unknown Sex and Gender Information Value Date Recorded Sex Assigned at Not on file Legal Sex Female 10:02 AM PAPER SLITTER Gender Identity Not on file Sexual Orientation Not on file Last Filed Vital Signs Vital Sign [place] Time Taken Comments Blood Pressure 147/81 12/27/2011 12:28 PM CDT Pulse 72 12/27/2011 12:28 PM CDT Temperature 36.1 C (97 F) 12/27/2011 12:28 PM CDT Respiratory Rate 16 12/27/2011 12:28 PM CDT Oxygen Saturation 100% 12/27/2011 12:28 PM CDT Inhaled Oxygen Concentration - - Weight 62.1 kg (137 lb) 08/28/2012 1:53 PM PAPER SLITTER Height 160 cm (5' 3 ) 08/28/2012 1:53 PM PAPER SLITTER Body Mass Index 24.27 08/28/2012 1:53 PM PAPER SLITTER Plan of Treatment Health Maintenance Due Date Last Done Comments BONE DENSITY TESTING 1935 MEDICARE AWV 12 MONTHS 1935 DTAP/TDAP/TD VACCINES (1 - Tdap) 1954 PNEUMOCOCCAL VACCINE 50+ (1 of 1 - PCV) 1985 ZOSTER VACCINE (1 of 2) 1985 Respiratory Syncytial Virus (RSV) Vaccine Pt: or over 60 yrs (1 - 1-dose 75+ series) 2010 COVID-19 VACCINE ( - 2023-2 5 season) 2024 DEPRESSION SCREENING 06/30/2024 INFLUENZA VACCINE (Season Ended) 2025 HEPATITIS B VACCINE Aged Out No longe r eligible based on patient's age to complete this topic HIB VACCINE Aged Out No longer eligi ble based on patient's age to complete this topic HPV VACCINE Aged Out No longer eligi ble based on patient's age to complete this topic MENINGOCOCCAL (Group B) VACC INE SHARED DECISION-MAKING Aged Out No longer eligibl e based on patient's age to complete this topic MENINGOCOCCAL GROUPS A/C/Y/W VACCINE Aged Out No longer eligible b ased on patient's age to complete this topic Insurance [facility] Address: [address] [address] MEDICARE MEDICARE Care Teams Professor Computer Science Relationship Specialty Start Date End Date Mita Duque DO [address] [place] [address] PCP - General 08/23/10 Stacy Munoz MD [address] [place] [address] Orthopedic Surgery 03/13/12
--- OUTSIDE RECORDS SUMMARY | 2024-11-01 13:57 | XMS_ITS | Clinical Summary ---
Author Organization [facility] Address [address] [place] [address] Care Team Providers Care Donor Services Technician Name Role Phone Blaise Clifford DO Primary Care Provider [phone] Allergies Active Allergy Reactions Criticality Noted Date Comments Duloxetine Vomiting 04/16/2022 Cephalexin Unknown 04/16/2022 Prednisone Unknown 04/16/2022 Sulfamethoxazole-Trimethoprim Unknown 2021 Social History Tobacco Use Types Packs/Day Years Used Date Smoking Tobacco: Never Smokeless Tobacco: Never Alcohol Use Standard Drinks/Week Comments Never 0 (1 standard drink = 0.6 oz pur e alcohol) Comments Unknown Sex and Gender Information Value Date Recorded Sex Assigned at Not on file Legal Sex Female 4:10 PM CDT Gender Identity Not on file Sexual Orientation Not on file Last Filed Vital Signs Vital Sign [place] Time Taken Comments Blood Pressure 166/87 05/05/2022 8:53 PM HIGH SCHOOL GUIDANCE COUNSELOR Pulse 71 05/05/2022 8:53 PM HIGH SCHOOL GUIDANCE COUNSELOR Temperature 36.6 C (97.9 F) 05/05/2022 5:46 PM HIGH SCHOOL GUIDANCE COUNSELOR Respiratory Rate 16 05/05/2022 8:53 PM HIGH SCHOOL GUIDANCE COUNSELOR Oxygen Saturation 98% 05/05/2022 8:53 PM HIGH SCHOOL GUIDANCE COUNSELOR Inhaled Oxygen Concentration - - Weight 51.3 kg (113 lb) 05/05/2022 5:46 PM HIGH SCHOOL GUIDANCE COUNSELOR Height 157.5 cm (5' 2 ) 05/05/2022 5:46 PM HIGH SCHOOL GUIDANCE COUNSELOR Body Mass Index 20.67 05/05/2022 5:46 PM HIGH SCHOOL GUIDANCE COUNSELOR Plan of Treatment Health Maintenance Due Date Last Done Comments DTaP, Tdap and Td Vaccines (1 - Tdap) 1954 Zoster Vaccines (1 of 2) 1985 Annual Medicare Wellness Visit 2000 RSV Immunization or 60+ Years (1 - 1-dose 75+ series) 2010 COVID-19 Vaccine ( season) 2024 04/12/2022, 01/18/2022, 04/20/2021, Additional history exists Pneumococcal Vaccine: 50+ Years Completed 12/27/2016, 04/12/2015 Meningococcal B Vaccine Aged Out No l onger eligible based on patient's age to complete this topic Meningococcal Vaccine Aged Out No cecilia jarek eligible based on patient's age to complete this topic RSV Immunizations Under 20 Months Aged Out No longer eligible based on patient's age to complete this topic Insurance MEDICARE [facility] Care Teams Donor Services Technician Relationship Specialty Start Date End Date Blaise Clifford DO [address] [place] [address] [place] [id number] PCP - General FAMILY PRACTICE 04/16/22
--- OUTSIDE RECORDS SUMMARY | 2024-11-01 13:57 | XMS_ITS | Clinical Summary ---
Author Organization [facility] Address [address], [place] [address] Phone Care Team Providers Care Associate Civil Engineer Name Role Phone Germania Vuong MD Primary Care Provider [phone] Emile Vasquez DO Unavailable [phone] Allergies Active Allergy Reactions Criticality Noted Date Comments Cephalexin Unknown 10/18/2015 Prednisone Unknown 10/18/2015 Sulfamethoxazole-Trimethoprim Unknown 2015 Medications pregabalin (LYRICA) 75 MG Capsule Take 75 mg by mouth 2 times daily. Active venlafaxine (EFFEXOR) 75 MG Tablet Take 75 mg by mouth daily. Active simvastatin (ZOCOR) 40 MG Tablet Take 40 mg by mouth daily. Active aspirin 325 MG Tablet Take 325 mg by mouth daily. Active Multiple Vitamins-Mineral s (STRESS TAB NF PO) Take by mouth daily. Active Magnesium 250 MG Tablet Take by mouth daily. Active calcium 600 MG Tablet Take 600 mg by mouth 2 times daily. Active Multiple Vitamins-Mineral s (MULTIVITAMIN PO) Take by mouth daily. 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 Gender Identity Not on file Sexual Orientation Not on file Plan of Treatment Health Maintenance Due Date Last Done Comments DEXA Bone Density 1935 Hepatitis C Virus (HCV) Screening 1935 TdaP Immunization 1935 Zoster Immunization (1 of 2) 1985 Respiratory Syncytial Virus (RSV) Immunization (Adult) (1 - 1-dose 75+ series) 2010 Influenza Immunization (#1) 2024 10/0 12/2019, 04/06/2019, 04/02/2018, Additional history exists SARS-COV-2 Immunization ( season) 2024 04/20/2021, 09/19/2020, 08/27/2020 Pneumococcal Immunization (50+ years) Completed 12/27/2016, 04/12/2015 Pneumococcal Immunization Combined Discontinued 12/27/2016, 04/12/2015 Hepatitis B Immunization Aged Out No longer eligible based on patient's age to complete this topic Meningococcal Immunization (ACWY) Aged Out No longer eligible based on patient's age to complete this topic Rotavirus Immunization Aged Out No lo nger eligible based on patient's age to complete this topic Insurance MEDICARE [facility] Care Teams Associate Civil Engineer Relationship Specialty Start Date End Date Germania Vuong MD [address] [place] [address] PCP - General Family Medicine 10/16/15 Emile Vasquez DO [address] [place] [address] Consulting Physician Gastroenterology 10/16/15
[2024-11-01 14:02] LABS: Alanine Aminotransferase 23 U/L (6-35); Albumin Level 4.2 g/dL (3.5-5.1); Alkaline Phosphatase 72 U/L (38-126); Anion Gap 6 mmol/L (4-12); Aspartate Amino Transferase 32 U/L (14-36); Bilirubin,Total 0.4 mg/dL (0.2-1.3); Blood Urea Nitrogen 21 mg/dL (7-17); Calcium 9.3 mg/dL (8.4-10.2); Carbon Dioxide 28 mmol/L (22-30); Chloride 104 mmol/L (98-107); Cholesterol 171 mg/dL (0-200); Estimated Glomerular Filt Rate > 60; Glucose 90 mg/dL (65-110); HDL Direct 59 mg/dL; Potassium 4.2 mmol/L (3.4-5.0); Sodium 138 mmol/L (137-145); Triglycerides 124 mg/dL (<150)
[2024-11-01 14:15] LABS: LDL Cholesterol Direct 70 mg/dL
== END 2024-11-01 13:20 | disposition home or self-care (01) ==
LOC: ANHLAB 13:20
PROVIDERS: PCP Family Medicine; Visit Provider Internal Medicine Cardiovascular Disease
DX: E78.00 Pure hypercholesterolemia, unspecified (principal)
CPT/HCPCS: 36415; 80053; 80061

== ENCOUNTER 2025-02-25 14:23 | Outpatient (NON) | payer MEDICARE, BC, SELFPAY ==
--- OUTSIDE RECORDS SUMMARY | 2023-01-01 08:44 | XMS_ITS | Continuity of Care Document ---
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 Name Role Phone Reese Alcazar MD Unavailable Unavailable Allergies, Adverse Reactions, Alerts Substance Reaction Status Criticality trimethoprim Active No Information PSEUDOEPHEDRINE HCL Active No Infor mation CHLORPHENIRAMINE MALEATE Active No Information phenylpropanolamine Active No Infor mation PHENYLEPHRINE HCL Active No Informa tion guaifenesin Active No Information sulfamethoxazole Active No Informat ion trimethoprim Active No Information sulfamethoxazole Active No Informat ion prednisone Active No Information CEPHALEXIN MONOHYDRATE Active No In formation Medications Medication Instructions Dosage Effective Dates (start - stop) Status Comments Pregabalin 75 MG Oral Capsule Take 1 capsule by mouth twice daily 75 MG - Active Simvastatin 40 MG Oral Tablet TAKE 1 TABLET BY MOUTH ONCE DAILY IN THE EVENING - Active Miralax 17 gram/dose oral powder take (17G) by oral route every day mixed with 8 oz. water, juice, soda, coffee or tea - Active Senna-S 8.6 mg-50 mg tablet take 1 tablet by oral route every day 1 tablet - Active turmeric root extract 500 mg capsule 1 daily - Active magnesium 250 mg tablet take 1 tablet by mouth once daily - Active Stool Softener 100 mg capsule take 1 capsule by oral route every day at bedtime as needed 100 MG - Active Stress Formula tablet take 1 tablet by oral route every day 1.00 tablet - Active Calcium 600+D3 Plus 600 mg calcium-800 unit-50 mg tablet take 2 tablets by mouth once daily - Active Daily Fiber 0.52 gram capsule take 1 capsule by mouth once daily - Active Briefcase Colon Health 1.5 billion cell capsule take 1 capsule by mouth once daily - Active Vitamin B-12 500 mcg tablet take 1 tablet by mouth once daily - Active VITAMIN C 500MG TABS 1 QD-daily - Acti ve Procedures Procedure Date Pt inelig neg scrn depres OFFICE [id number] BODY MASS INDEX DOCD SYST BP LT 130 MM HG DIAST BP < 80 MM HG BASIC METABOLIC PANEL(BMP) ROUTINE VENIPUNCTURE [place] DSCHRG MED/CURRENT MED MERGE FALL RISK ASSESSMENT DOC'D PRES/ABSN URINE INCON ASSESS PPPS, subseq visit BODY MASS INDEX DOCD SYST BP LT 130 MM HG DIAST BP < 80 MM HG CBC, INC PLATELETS AND DIFFERENTIAL COMPREHEN METABOLIC PANEL CMP LIPID PANEL URINALYSIS, DIPSTICK (UA) - Office Lab J ROUTINE VENIPUNCTURE IL OFFICE [id number] BODY MASS INDEX DOCD SYST BP GE 130 - 139MM HG DIAST BP < 80 MM HG OFFICE [id number] BODY MASS INDEX DOCD SYST BP LT 130 MM HG DIAST BP < 80 MM HG EAR WASH, REMOVAL IMPACTED CERUMEN Requi ring Instrumentation OFFICE [id number] BODY MASS INDEX DOCD SYST BP LT 130 MM HG DIAST BP < 80 MM HG Pt inelig neg scrn depres Removal Impacted Cerumen Irrigation/Lava ge, Unilateral OFFICE [id number] BODY MASS INDEX DOCD SYST BP LT 130 MM HG DIAST BP < 80 MM HG Pt inelig neg scrn depres OFFICE [id number] BODY MASS INDEX DOCD SYST BP GE 130 - 139MM HG DIAST BP < 80 MM HG COMPREHEN METABOLIC PANEL CMP ROUTINE VENIPUNCTURE IL FALL RISK ASSESSMENT DOC'D PRES/ABSN URINE INCON ASSESS Pt inelig neg scrn depres DSCHRG MED/CURRENT MED MERGE OFFICE [id number] BODY MASS INDEX DOCD SYST BP LT 130 MM HG DIAST BP < 80 MM HG Pt inelig neg scrn depres OFFICE [id number] BODY MASS INDEX DOCD SYST BP GE 130 - 139MM HG DIAST BP 80-89 MM HG FALL RISK ASSESSMENT DOC'D PRES/ABSN URINE INCON ASSESS Pt inelig neg scrn depres PPPS, subseq visit BODY MASS INDEX DOCD SYST BP LT 130 MM HG DIAST BP < 80 MM HG CBC, INC PLATELETS AND DIFFERENTIAL COMPREHEN METABOLIC PANEL CMP 0 LIPID PANEL ROUTINE VENIPUNCTURE IL Pt inelig neg scrn depres OFFICE [id number]-SIN-[id number] BODY MASS INDEX DOCD SYST BP LT 130 MM HG DIAST BP < 80 MM HG Pt inelig neg scrn depres OFFICE [id number] BODY MASS INDEX DOCD SYST BP LT 130 MM HG DIAST BP < 80 MM HG BASIC METABOLIC PANEL(BMP) CBC, INC PLATELETS AND DIFFERENTIAL URINALYSIS, DIPSTICK (UA) - Office Lab J ROUTINE VENIPUNCTURE IL OFFICE [id number] BODY MASS INDEX DOCD SYST BP LT 130 MM HG DIAST BP < 80 MM HG FALL PLAN OF CARE DOC'D URINE INCON PLAN DOC'D PRES/ABSN URINE INCON ASSESS Pt inelig neg scrn depres PPPS, subseq visit BODY MASS INDEX DOCD SYST BP LT 130 MM HG DIAST BP < 80 MM HG CBC, INC PLATELETS AND DIFFERENTIAL COMPREHEN METABOLIC PANEL CMP 9 LIPID PANEL THYROID STIMULATION HORMONE(TSH) 2018 ROUTINE VENIPUNCTURE IL Advance Directives Directive Yes / No Effective Date File Name Life Support Not Answered N/A N/A Intubation Not Answered N/A N/A Antibiotics Not Answered N/A N/A IV Fluid Support Not Answered N/A N/A Tube Feed Not Answered N/A N/A Other Directive N/A N/A WARNING:The information contained in this section is historical and is provided for information only and does not constitute a legal document or any assurance that the information is still accurate. Please verify the information with the elmore of the legal document before using it for clinical purposes. Encounters Encounter Description Practice Location Reason(s) For Visit Diagnoses Date Provider Providers Copied on Encounter [facility], [address], [place], [place], [address] , [place] tel: [phone] [facility] DizzinessBradyca rdia, unspecified 3 German Reese. 4 [facility], [place], [place], [address], [place]. tel:[phone] [facility], [address], [place], [place], [address] , [place] tel: [phone] Cir[facility] No Information 2 English Leigh. 4 [place], [address], [place]. tel:[phone] OFFICE IMPHD-GZT-YQ TAILED [facility], [address], [place], [place], [address] , [place] tel: [phone] [facility] chronic conditions (chief complaint) FibromyalgiaMixe d hyperlipidemiaAr thritis 2 English Leigh. 4 [place], [address], [place]. tel:[phone] Referring Provider: [place], [address] . tel:[phone] [facility], [address], [place], [place], [address] , [place] tel: [phone] Cira No Information 1 English Leigh. [address] [place], [address], [place]. tel:[phone] [facility], [address], [place], [place], [address] , [place] tel: [phone] [place] Medicare preventive (chief complaint)C hronic Conditions (chief complaint)a cute issues (chief complaint) Encounter for general adult medical examination without abnormal findingsOveracti ve bladderFibromyal giaCarotid stenosis, bilateralMixed hyperlipidemiaDe pression, unspecified depression typeChronic idiopathic constipationDysu riaDizzinessEncn tr screen mammogram for malignant neoplasm of breastAsymptomat ic menopausal state 1 Alexander Carreon. 4 [place], [place], [address], [place]. tel:[phone] Referring Provider: [place], [address] . tel:[phone] OFFICE CDCUL-WUV-YS PANDED [facility], [address], [place], [place], [address] , [place] tel: [phone] [facility] right hip pain (chief complaint) Right hip pain 1 English Leigh. Nicole [place], [address], [place]. tel:[phone] Referring Provider: [place], [address] . tel:[phone] [facility], [address], [place], [place], [address] , [place] tel: [phone] [facility] Right hip pain Sep-2 0 1 English Leigh. Nicole [place], [address], [place]. tel:[phone] [facility], [address], [place], [place], [address] , [place] tel: [phone] Cir[facility] No Information Aug- 1 German John. Rivera [place], [address], [place]. tel:[phone] [facility], [address], [place], [place], [address] , [place] tel: [phone] [facility] Unspecified injury of right shoulder and upper arm, initial encounter Aug- 1 English Leigh. Nicole [place], [address], [place]. tel:[phone] Referring Provider: [place], [address] . tel:[phone] [facility], [address], [place], [place], [address] , [place] tel: [phone] [facility] Injury of right upper extremity, initial encounter Aug- 1 English LeighClaudette Rivera [place], [address], [place]. tel:[phone] OFFICE SFUOZ-GES-MQ PANDED [facility], [address], [place], [place], [address] , [place] tel: [phone] [facility] lump on arm (chief complaint)f eeling dizzy & nauseated (chief complaint) Injury of right upper extremity, initial encounter 1 English Leigh. Nicole [place], [address], [place]. tel:[phone] Referring Provider: Reese Alcazar, [place], [address] . tel:[phone] [facility], [address], [place], [place], [address] , tel: [phone] Cira No Information 1 English Leigh. [place], [address], . [phone] OFFICE DSYQS-OGJ-IP [facility], [address], [place], [place], [address] , tel: [phone] [facility] cerumen impaction (chief complaint) Body mass index (BMI) 23.0-23.9, adultImpacted cerumen, right earExcessive cerumen in left ear canalHearing loss, unspecified hearing loss type, unspecified laterality 1 Alexander Carreon. [address] [place] [address], [id number], . [phone] Referring Provider: Reese Alcazar, [place], [address] . tel:[phone] OFFICE VWRVZ-LUO-SD [facility], [address], [place], [place], [address] , tel: [phone] [facility] hearing loss (chief complaint) Impacted cerumen, right earExcessive cerumen in left ear canalHearing loss, unspecified hearing loss type, unspecified laterality 1 Alexander Carreon. [address] [place] [address], [id number], . [phone] Referring Provider: [place], [address] . tel:[phone] OFFICE CKOMQ-KMC-WH [facility], [address], [place], [place], [address] , tel: [phone] Cira chronic conditions (chief complaint) Overactive bladderFibromyal giaCarotid stenosis, bilateral 1 English Leigh. [address] [place] [address], [address], . tel:[phone] Referring Provider: [place], [address] . tel:[phone] OFFICE ZELIA-TUO-MM [facility] [employer] [facility], [address], [place], [place], [address] , [place] tel: [phone] [facility] wasp sting (chief complaint) Wasp sting, accidental or unintentional, initial encounter 0 Alexander Carreon. 4 [place], [place], [address], [place]. tel:[phone] Referring Provider: [place], [address] . tel:[phone] OFFICE KRNFN-ZDW-MC [facility] [employer] [facility], [address], [place], [place], [address] , [place] tel: [phone] [facility] ER follow up (chief complaint) Swelling of left hand 0 English Leigh. [address] [place] [address], [address], [place]. tel:[phone] Referring Provider: [place], [address] . tel:[phone] [facility], [address], [place], [place], [address] , [place] tel: [phone] [place] Medicare Px (chief complaint)M edicare preventive (chief complaint) Encounter for general adult medical examination without abnormal findingsFibromya lgiaChronic idiopathic constipationMixe d hyperlipidemiaDe pression, unspecified depression typeOveractive bladderBody mass index (BMI) 22.0-22.9, adult 0 Alexander Carreon. 4 [place], [place], [address], . tel:[phone] Referring Provider: [place], [address] . tel:[phone] OFFICE KPGXC-YQB-UB [facility], [address], [place], [place], [address] , tel: [phone] [facility] cough not any better (chief complaint) Cough 0 Alexander Carreon. [address] [place], [place], [address], . tel:[phone] Referring Provider: Reese Alcazar, [address] [place], [address] . tel:[phone] OFFICE YJJVV-SZC-FL TAILED [facility], [address], [place], [place], [address] , tel: [phone] [facility] 6 month (chief complaint) Mixed hyperlipidemiaFi bromyalgiaUrinar y frequencyChronic fatigue 0 English Leigh. [address] [place] [address], [address], . tel:[phone] Referring Provider: Reese Alcazar [address] [place] [address], [address] . tel:[phone] OFFICE MATEC-CCX-GD PANDED [facility], [address], [place], [place], [address] , tel: [phone] Cira continued issues with left leg (chief complaint) Knee pain, left anterior 9 English Leigh. [address] [place] [address], [address], . tel:[phone] Referring Provider: [place], [address] . tel:[phone] [facility], [address], [place], [place], [address] , tel: [phone] [facility] px (chief complaint) Encounter for general adult medical examination without abnormal findingsMixed hyperlipidemiaFi bromyalgiaChroni c idiopathic constipationKnee pain, left anterior 9 English Leigh. [address] [place] [address], [address], . tel:[phone] Referring Provider: [place], [address] . [phone] [facility], [address], [place], [place], [address] , tel: [phone] [facility] Benign hypertensionMixe d hyperlipidemiaAc quired hypothyroidism 9 English John. Rivera [place], [address], . tel:[phone] Referring Provider: Reese [place], [address] . [phone] [facility], [address], [place], [place], [address] , tel: [phone] [facility] Upper respiratory tract infection, unspecified type Aug- 9 English Leigh. [address] [place], [address], [place]. tel:[phone] Referring Provider: [place], [address] . [phone] [facility], [address], [place], [place], [address] , tel: [phone] [facility] Body mass index (BMI) 23.0-23.9, adultFibromyalgi aHyperlipidemia, unspecified hyperlipidemia typeAK (actinic keratosis) 9 German Reese. [address] [place], [address], [place]. tel:[phone] Referring Provider: [place], [address] . [phone] [facility], [address], [place], [place], [address] , tel: [phone] [facility] Benign hypertension 8 English Leigh. [address] [place], [address], [place]. tel:[phone] Referring Provider: [place], [address] . [phone] [facility], [address], [place], [place], [address] , tel: [phone] [facility] Encounter for general adult medical examination without abnormal findingsEssentia l (primary) hypertensionHype rlipidemia, unspecified hyperlipidemia typeFibromyalgia Depression, unspecified depression type 8 English Leigh. [address] [place], [address], . [phone] Referring Provider: Reese Alcazar, [place], [address] . tel:[phone] [facility], [address], [place], [place], [address] , tel: [phone] [facility] Hyperlipidemia, unspecified hyperlipidemia typeEssential (primary) hypertension 8 English Leigh. [address] [place], [address], [place]. tel:[phone] Referring Provider: Reese [place], [address] . tel:[phone] [facility], [address], [place], [place], [address] , tel: [phone] [facility] Cataract, unspecified cataract type, unspecified lateralityEsopha geal dysphagiaRaspy voice 8 German Reese. [address] [place], [address], [place]. [phone] Referring Provider: Re[place], [address] . [phone] [facility], [address], [place], [place], [address] , tel: [phone] [facility] FibromyalgiaChro te idiopathic constipationInso mnia, unspecified type 8 German Reese. [address] [place], [address], [place]. tel:[phone] Referring Provider: [place], [address] . [phone] [facility], [address], [place], [place], [address] , tel: [phone] [facility] Fibromyalgia 7 English Leigh. [address] [place], [address], [place]. tel:[phone] Referring Provider: Reese Alcazar, [place], [address] . [phone] [facility], [address], [place], [place], [address] , tel: [phone] [facility] Chronic idiopathic constipation Sep- 7 German Reese. [address] [place], [address], [place]. tel:[phone] Referring Provider: [place], [address] . [phone] [facility], [address], [place], [place], [address] , tel: [phone] [facility] FibromyalgiaSebo rrheic keratosisUrinary retention Sep- 7 English Leigh. [address] [place], [address], [place]. tel:[phone] Referring Provider: [place], [address] . [phone] [facility], [address], [place], [place], [address] , tel: [phone] [facility] Urinary retention 7 German Reese. [address] [place], [address], [place]. tel:[phone] Referring Provider: [place], [address] . [phone] [facility], [address], [place], [place], [address] , [place] tel: [phone] [facility] Drug-induced nausea and vomitingNausea with vomiting, unspecified 7 German Reese. [address] [place], [address], [place]. tel:[phone] Referring Provider: [place], [address] . tel:[phone] [facility], [address], [place], [place], [address] , [place] tel: [phone] [facility] Chronic left shoulder painFibromyalgia 7 English Leigh. [address] [place], [address], . tel:[phone] Referring Provider: Reese Alcazar, [place], [address] . tel:[phone] [facility], [address], [place], [place], [address] , tel: [phone] [facility] Chronic left shoulder painOther chronic pain Apr-3 0 6 English Leigh. [address] [place], [address], [place]. tel:[phone] [facility], [address], [place], [place], [address] , tel: [phone] [facility] Pain in both lower extremitiesNeuro pathyIncreased urinary frequencyDizzine ss 6 English Leigh. [address] [place], [place], [address], [place]. tel:[phone] Referring Provider: [place], [address] . [phone] [facility], [address], [place], [place], [address] , tel: [phone] [facility] Chronic left shoulder painOther chronic pain 6 English Leigh. [address] [place], [address], [place]. tel:[phone] [facility], [address], [place], [place], [address] , tel: [phone] [facility] Acute pain of left shoulder 0 6 English Leigh. [place], [address], [place]. tel:[phone] [facility], [address], [place], [place], [address] , tel: [phone] [facility] Encounter for general adult medical examination without abnormal findingsFibromya lgiaConstipation , unspecified constipation typeHyperlipidem ia, unspecified hyperlipidemia typeNeck pain on left sideEncounter for immunization 6 German Reese. [address] [place], [address], [place]. tel:[phone] Referring Provider: Reese Alcazar, [address] [place], [address] . tel:[phone] [facility], [address], [place], [place], [address] , [place] tel: [phone] Neto No Information 3 Neto Jasso. [address] [facility], [place], [place], [address], [place]. tel:[phone] [facility], [address], [place], [place], [address] , [place] tel: [phone] [facility] MCGILL (dyspnea on exertion)S/P knee replacementOther Dyspnea/Respirat ory AbnormalitiesKne e joint replacementGERD (gastroesophagea l reflux disease)Restless leg syndrome 3 Nona Mcknight. [address] [place] [address], [address]. [phone] Referring Provider: Romero Dennis, [address] [place] [address], [address] . [phone] [facility], [address], [place], [place], [address] , tel: [phone] [facility] Biceps muscle tearAllergic rhinitis 3 Gottuso Germaine. [facility] [place], [place], [address]. tel:[phone] Referring Provider: Romero Dennis, [address] [place] [address], [address] . tel:[phone] [facility] [address], [place], [place], [address] , tel: [phone] [facility] Acute sinusitis, unspecifiedAcute sinusitis, unspecified 3 Neto Jasso. [address] [place] [address], [address], [place]. tel:[phone] Referring Provider: Romero Dennis, [address] [place] [address], [place], [address] . tel:[phone] [facility], [address], [place], [place], [address] , [place] tel: [phone] Neto No Information 3 Neto Jasso. [address] [facility], [place], [place], [address], [place]. [phone] [facility], [address], [place], [place], [address] , [place] tel: [phone] Neto No Information 3 Neto Jasso. [address] [facility], [place], [place], [address], . tel:[phone] [facility], [address], [place], [place], [address] , [place] tel: [phone] [facility] Benign hypertensive heart disease without congestiLeg painDuodenal ulcerMixed hyperlipidemiaAc antonia sinusitis, unspecifiedOther Malaise And Fatigue 2 Neto Jasso. [address] [place] [address], [place], [place], [address], . tel:[phone] Referring Provider: Romero Dennis, [address] [place] [address], [place], [address] . tel:[phone] [facility], [address], [place], [place], [address] , [place] tel: [phone] Neto NEED FOR PROPHYLACTIC VACCINATION AND INOCULATION, OTHER VIRAL DISEASES 2 Neto Jasso. [address] [place] [address], [place], [place], [address], [place]. tel:[phone] Referring Provider: Romero Dennis, [address] [place] [address], [place], [address] . tel:[phone] [facility], [address], [place], [place], [address] , [place] tel: [phone] [facility] SinusitisFibromy algia 2 Neto Jasso. [address] [place] [address], [place], [place], [address], . tel:[phone] Referring Provider: Romero Dennis, [address] [place] [address], [place], [address] . tel:[phone] [facility], [address], [place], [place], [address] , tel: [phone] [facility] Chronic fatigue syndromeFibromya lgiaBenign hypertensive heart disease without congestive heart failureMixed hyperlipidemiaEs ophageal reflux 2 Neto Jasso. [address] [place] [address], [place], [place], [address], . tel:[phone] Referring Provider: Romero Dennis, [address] [place] [address], [place], [address] . [phone] [facility], [address], [place], [place], [address] , tel: [phone] [facility] Pain in limbFibromyalgia 1 Neto Jasso. [address] [place] [address], [place], [place], [address], . tel:[phone] Referring Provider: Romero Dennis, [address] [place] [address], [place], [address] . tel:[phone] [facility], [address], [place], [place], [address] , [place] tel: [phone] Con[facility] No Information 1 Conversion Doctor. [address] [place] [address], [place], [address], [place]. [facility], [address], [place], [place], [address] , [place] tel: [phone] [facility] CHR AIRWAY OBSTRUCT NECENTHESOPATHY, SITE NOSLUMBOSACRAL NEURITIS NOSMYALGIA AND MYOSITIS NOSLONG-TERM USE MEDS NECMIXED HYPERLIPIDEMIABE NIGN HYP HT DIS W/O HF 1 Neto Jasso. [address] [place] [address], [place], [place], [address], . tel:[phone] [facility], [address], [place], [place], [address] , [place] tel:[phone] [facility] SPRAIN OF NECKFALL NOSHEAD INJURY NOS 1 Neto Jasso. [address] [facility], [place], [place], [address], [place]. tel:[phone] [facility], [address], [place], [place], [address] , [place] tel:[phone] [facility] BENIGN HYPERTENSIONGLOS SODYNIACHRONIC FATIGUE SYNDROME May-3 0-201 0 Neto Jasso. [address] [facility], [place], [place], [address], . tel:[phone] [facility], [address], [place], [place], [address] , tel:[phone] [facility] FLUSHINGESOPHAGE AL REFLUXREFLUX ESOPHAGITISINSOM JAREN NOSGENERALIZD HYPERHIDROSIS 0 2-201 0 Neto Jasso. [address] [facility], [place], [place], [address], [place]. tel:[phone] [facility], [address], [place], [place], [address] , [place] tel:[phone] [facility] VACCIN FOR INFLUENZAFRACTUR E RIB NOS-CLOSEDCONTUS ION OF HIP 7201 0 Neto Jasso. [address] [facility], [place], [place], [address], [place]. tel:[phone] [facility], [address], [place], [place], [address] , [place] tel:[phone] [facility] GENERAL OSTEOARTHROSISHY PERLIPIDEMIA NEC/NOS 0 5201 0 Neto Jasso. [address] [facility], [place], [place], [address], [place]. tel:[phone] [facility], [address], [place], [place], [address] , [place] tel:[phone] [facility] ABNORMAL GLUCOSE NEC Nov-1 8-201 0 Neto Jasso. [address] [facility], [place], [place], [address], [place]. tel:[phone] [facility] [facility], [address], [place], [place], [address] , [place] tel: [phone] [facility] SYNOV/TEND/BURSA DIS NECRESPIRATORY ABNORM NEC2ND DEG BURN HAND NOS Branden-0 3-201 0 Neto Jasso. [address] [facility], [place], [place], [address], [place]. tel:181 [facility], [address], [place], [place], [address] , [place] tel: [phone] [facility] PAIN IN LIMB Mar-0 4-201 0 Neto Jasso. [address] [facility], [place], [place], [address], [place]. tel:181 [facility], [address] [facility], [place], [place], [address] , [place] tel: [phone] Duque LOC PRIM OSTEOARTHR NECCONSTIPATION NOSSACROILIITIS NEC Aug- 2-200 9 Neto Jasso. [address] [facility], [place], [place], [address], [place]. tel:181 [facility], [address] [facility], [place], [place], [address] , [place] tel: [phone] Duque OBS CHR [facility] W(AC) EXAC May-0 1-200 9 Neto Jasso. [address] [facility], [place], [place], [address], [place]. tel:181 [facility], [address], [place], [place], [address] , [place] tel: [phone] Duque MALAISE AND FATIGUE NECDEPRESSIVE DISORDER NEC Apr-1 5-200 9 Neto Jasso. [address] [facility], [place], [place], [address], [place]. tel: [phone] [facility], [address], [place], [place], [address] , [place] tel: [phone] Duque CRNRY ATHRSCL NATVE VSSLHYPERTENSION NOS Sep-0 3-200 8 Neto Jasso. [address] [facility], [place], [place], [address], [place]. tel: [phone] [address], [place], [place], [address] , [place] tel: [phone] [facility]que ROUTINE MEDICAL EXAM Branden-0 4-200 8 Neto Jasso. [address] [place] [address], [place], [place], [address], [place]. tel:181 [address] [address], [place], [place], [address] , [place] tel:[phone] Du[facility] OSTEOARTHRO NOS-OTH SITEBONE & CARTILAGE DIS NOSACTINIC KERATOSIS Feb-2 7-200 8 Neto aJsso. [address] [facility], [place], [place], [address], [place]. tel:181 [address] [address], [place], [place], [address] , [place] tel:[phone] Du[facility] JOINT PAIN-UNSPECCHRO KIDNEY DIS STAGE II Nov-2 6-200 7 Neto Jasso. [address] [facility], [place], [place], [address], [place]. tel:181 [address] [address], [place], [place], [address] , [place] tel:[phone] Duque SEBACEOUS CYST Apr-2 0-200 7 Neto Jasso. [address] [facility], [place], [place], [address], [place]. tel:181 [address] [address], [place], [place], [address] , [place] tel:[phone] [facility] HYPOTHYROIDISM NOS Oct-2 4-200 5 Duque Romero. [address] [facility], [place], [place], [address], [place]. tel:181 [address] [address], [place], [place], [address] , [place] tel:[phone] Duque JT DERANGMENT NEC-PELVIS Aug-1 0-200 5 Duque Romero[address] [place] [address], [place], [place], [address], [place]. tel:[phone] [facility], [address], [place], [place], [address] , [place] tel:[phone] Du[facility] INFLAMM POLYARTHROP NOS Dec- 0-200 5 Duque Romero. [address] [facility], [place], [place], [address], [place]. tel:[phone] [facility], [address], [place], [place], [address] , [place] tel:[phone] Duque SCIATICA 5-200 5 Neto Jasso. [address] [facility], [place], [place], [address], [place]. tel:[phone] [facility], [address], [place], [place], [address] , [place] tel:[phone] Duque OSTEOARTHROS NOS-L/LEG 2-200 5 Duque Romero. [address] [facility], [place], [place], [address], [place]. tel:[phone] [facility], [address], [place], [place], [address] , [place] tel:[phone] Duque FALL NECENTHESOPATHY OF HIPSPRAIN HIP & THIGH NOS 5-200 5 Duque Romero. [address] [facility], [place], [place], [address], [place]. tel:[phone] [facility], [address], [place], [place], [address] , [place] tel:[phone] Duque HELICOBACTER PYLORIHYPOTENSIO N NOSCALCANEAL SPUR 9-200 5 Duque Romero. [address] [facility], [place], [place], [address], [place]. tel:181 [facility], [address], [place], [place], [address] , [place] tel:[phone] Duque STOMACH FUNCTION DIS NEC 0-200 4 Duque Romero. [address] [facility], [place], [place], [address], [place]. tel:[phone] [facility], [address], [place], [place], [address] , [place] tel:[phone] Duque TENSION HEADACHECHEST PAIN NECORTHOSTATIC HYPOTENSION 8-200 4 Neto Jasso. [address] [facility], [place], [place], [address], [place]. tel:[phone] [facility], [address], [place], [place], [address] , [place] tel:[phone] Duque OSTEOPOROSIS NOSANXIETY STATE NOS October-0 3-200 4 Neto Jasso. [address] [facility], [place], [place], [address], [place]. tel:[phone] [facility], [address], [place], [place], [address] , [place] tel:[phone] Duque RHINITIS DUE TO POLLENVACCIN FOR INFLUENZAND VAC STRPTCS PNEUMNI BMAL HYPERT HRT DIS W HF 0 7-200 3 Neto Jasso. [address] [facility], [place], [place], [address], [place]. tel:[phone] [facility], [address], [place], [place], [address] , [place] tel:[phone] Duque VACCINATION FOR TD-DT 0 4-200 3 Neto Jasso. [address] [facility], [place], [place], [address], [place]. tel:[phone] [facility], [address], [place], [place], [address] , [place] tel:[phone] Duque HYPERTONICITY OF BLADDER Apr-0 7-200 3 Castellano Roxanna. [address] [facility], [place], [place], [address]. tel:[phone] [facility], [address], [place], [place], [address] , [place] tel:[phone] Duque ACUTE SINUSITIS NOS Sep-0 7-200 3 Neto Jasos. [address] [facility], [place], [place], [address], [place]. tel:[phone] [facility], [address], [place], [place], [address] , tel: [phone] Duque LOC PRIM OSTEOART-L/LEG Aug-0 2-200 2 Castellano Cindy. [address] [facility], [place], [place], [address]. tel:[phone] [facility], [address], [place], [place], [address] , tel:[phone] Duque JOINT PAIN-HAND Dec-3 1-200 1 Castellano Roxanna. [address] [facility], [place], [place], [address]. tel:[phone] [facility], [address], [place], [place], [address] , tel:[phone] Duque DERMATITIS DUE TO PLANT Bonilla-0 9-200 1 Neto Jasso. [address] [place], [place], [address], . tel:[phone] [facility], [address], [place], [place], [address] , tel:[phone] Duque ACUTE BRONCHITIS Nov-0 9-199 9 Castellano Roxanna. [facility], [place], [place], [address]. tel:[phone] [facility], [address], [place], [place], [address] , tel:[phone] Duque HEMATURIAACUTE CYSTITIS Oct-0 1-199 [address] Duque Romero[address] [place] [address], [address], . tel:[phone] [facility], [address], [place], [place], [address] , tel:[phone] Duque LOC PRIM OSTEOARTH-HAND Sep-2 4-199 9 Duque Romero[address] [place] [address], [address], . tel:[phone] Family History Family Member Type Diagnosis Age At Onset Sister Problem (finding) malignant neop lasm of bone (Cause Of ) Mother Problem (finding) Cancer, brain Father Problem (finding) diabetes mellitus type 2 Mother Problem (finding) Myocardial infarction Father Problem (finding) asthma Mother Problem (finding) malignant neoplasm of l supa Mother Problem (finding) malignant neoplasm of l iver Mother Problem (finding) Hearing deficiency Immunizations Vaccine Date Status Comments Pfizer (Diluent Reconstitute d) COVID19 Vaccine, 0.3mL per dose, 2 doses, administered 21 days apart administered Source: Source Unspe cified Fluzone High-Dose, high dose , preservative free administered Note: date is approx imate ; Source: Source Unspecified Pfizer-BioNTech COVID19 Vaccine, 0.3mL per dose, 2 doses, administered 21 days apart administered [facility] ; Source: Source Unspecified Pfizer-BioNTech COVID19 Vaccine, 0.3mL per dose, 2 doses, administered 21 days apart [facility] ; Source: Source Unspecified Fluzone High-Dose, high dose , preservative free administered Note: done at [facility] (date is approximate) ; Source: Source Unspecified Influenza, injectable, quadrivalent, preservative free, 3 yrs or older administered Source: New Immuniz ation Record Pneumococcal conjugate PCV 13 administere d Source: Source Unspecified Influenza, injectable, quadrivalent, preservative free, 3 yrs or older administered Source: Source Unsp ecified Zoster administered Source: New Imm unization Record Fluvirin administered Source: New Imm unization Record 43774 - Influenza administered Source: So urce Unspecified 63388 - Influenza administered Source: So urce Unspecified 95878 - Influenza administered Source: So urce Unspecified 88974 - Pneumococcal_PPV23 administered S ource: Source Unspecified 23103 - Influenza administered Source: So urce Unspecified 82212 - TD administered Source: Source Unspecified Payers Payer name Insurance type Covered democrat ID Authoriza tion(s) MEDICARE [place] [id number] [facility] INACTIVE OUT OF STATE [id number] Social History Type Description Quantity Date Captured Comments Alcohol Use Details Unknown Caffeine Use Details Unknown Tobacco Use Status No Information Smoking Status No Information Sex Female Chief Complaint And Reason For Visit No Information Reason For Referral Reason For Referral No Information Plan Of Treatment Date Type Action Status Goal Dietary management education , guidance, and counseling completed Goal Dietary management education , guidance, and counseling completed Referral Ordered: Echocardiogram, Doppler, complete ordered Referral Referred To: [facility]
[address] [place], [address] [id number] Ordered: DEXA of spine and hip ordered Referral Referred To: [facility]
[address] [place], [address] [id number] Ordered: SCREENING MAMMOGRAM (CAD) Bilateral breast ordered Referral Referred To: [address], [phone] Ordered: X-ray of right hip joint, two views ordered Referral Referred To: Billy Coffey MD [address] [place] [address]
[address] [place], [address] [phone] Ordered: Referrals: Orthopedic Surgery. Billy Coffey MD. Evaluation/diagnostic/treatment - Level 3 Appointment date/timeframe: 09/14/2020 ordered Referral Referred To: [facility]
[address] [place], [address] [id number] Ordered: MRI shoulder right wo contrast Appointment date/timeframe: 09/14/2020 ordered Referral Referred To: [address] [place], [address] [phone] Ordered: MRI of right upper extremity without contrast ordered Referral Referred To: Asif Ramos MD [address] [place], [phone] Ordered: Referrals: Otolaryngology. Asif Ramos MD. Evaluation/diagnostic/treatment - Level 3 ordered Referral Referred To: Lu[address] [place], [id number] Ordered: MRI knee left wo contrast Appointment date/timeframe: 03/04/2019 ordered Referral Referred To: Lu[address] [place], [address] [phone] Ordered: X-RAY EXAM OF KNEE, A/P & LAT Left Appointment date/timeframe: 03/20/2019 ordered History Of Present Illness Encounter Date Complaint History Of Prese nt Illness chronic conditions fibromyalgia- - doing okhld-- controlled on statinARTHROTIS-- TAKING meloxicam Medicare preventive Recently, th e patient has felt down, depressed or hopeless and has felt little interest or pleasure in doing things. Functional Status: (Functional status has not changed) on 01/08/2021. Cognitive Status: (Cognitive status has not changed) on 01/08/2021. The ''Up and Go'' test took less than 30 seconds and the patient does not need help with activities of daily living. The patient is not at risk for falls. The patient has not fallen in the last year. The fall(s) did not result in injury. Patient's activity level is moderate. Patient exercises 2-3 times/week. The patient has smoke detectors, carbon monoxide detectors in the home. The patient does not have firearms in the home. Patient reports using a seatbelt in vehicles. Patient reports a healthy diet. Patient reports taking a calcium supplement. Patient reports taking a vitamin D supplement. Relevant history is positive for alcohol use. Relevant history is negative for tobacco use and passive smoke exposure. Screening services were reviewed and updated. Chronic Conditions acute issues Patient was admi tted to [facility] on 01/03 and was discharged a few days later. We have not received the discharge paperwork yet. She went to the ER due to diaphoresis and nausea. She was in a store with a friend when this occurred. EMS was called. She had an Echo which showed mild regurgitation. She was recommended to follow with referral coordinator and was referred to Dr Perez. She reports that they did not find a cause for her dizziness/diaphoresis. She has not had any other episodes since discharge. She reports having lower blood pressures in the past and has never taken BP medications. She does not know if she drinks enough water throughout the day. Patient also complains of pain with urination and frequency. Chronic Conditions *See Chronic Conditions HPI right hip pain Location of pain is right posterior hip. Additional information: xray negative, hard to walk, back also hurts. feeling dizzy & nauseated got pa in in arm when reaching, now there is bump, had previous bicep tear lump on arm cerumen impaction 85 year old fe male who presents with right ear cerumen impaction. She has been instilling Debrox for 2 weeks. She reports no relief of hearing loss. She has no ear pain or drainage. hearing loss 85 year old kristina weber who presents with hearing loss bilaterally. She reports that a nurse looked in her ears a few days ago and noted excessive ear wax. She has been using OTC ear wax drops with some relief. She has no ear pain or ear drainage. chronic conditions fibromyalgia- - still causing problemsurinary frequency-- going three times a nightcarotid stenosis-- no symptoms wasp sting 84 year old kristina weber who presents with wasp sting since yesterday. She was moving her trash can and she felt something sting her left dorsal hand. She was evaluated in ER 2 weeks ago for same complaints of redness, swelling, pain to left hand after presumed sting or bite. She was prescribed Clindamycin and Benadryl at that time. Her symptoms resolved within a few days. She has leftover Clindamycin and has been taking this. She has been applying hydrocortisone cream as well. She has been taking Benadryl. She feels that her symptoms have improved today. She complains of pain and itching. Denies fever, chills, redness. ER follow up lefthand hoda florentino--- now back to normal, probaly from bite, no more redness, but still itching Medicare preventive The patient has not felt depressed and has had interest and pleasure doing things recently. Functional Status: (Functional status has not changed) on 01/06/2020. The ''Up and Go'' test took less than 30 seconds and the patient does not need help with activities of daily living. The patient is at risk for falls. The patient has fallen 1 times in the last year. The fall(s) resulted in injury. Details: hit her head but did not go to the ER. Patient's activity level is moderate. Patient exercises 2-3 times/week. The patient has smoke detectors, carbon monoxide detectors in the home. The patient does not have firearms in the home. Patient reports using a seatbelt in vehicles. Patient reports a healthy diet. Patient does not take calcium. Patient reports not taking Vitamin D. Relevant history is positive for alcohol use. Relevant history is negative for tobacco use and passive smoke exposure. Medicare Px 84 year old kristina weber who presents for annual AWVFibromyalgiaPatient took Lyrica previously but had to apply to a program to afford it and did not want to mess with the hassle per previous note. She went back to gabapentin at the beginning of the year. She also started glucosamine. Patient takes naproxen every morning with food. She occasionally takes Tylenol. HyperlipidemiaPatient takes simvastatin with no side effectsDepressionPatient has managed this without medication. She reports getting depressive symptoms occasionally. ConstipationPatient takes stool softener and fiber. This is well controlled. She also tries to drink water throughout the dayOveractive BladderPatient was taking oxybutynin but did not notice much of a difference and was concerned about side effects. She was switched to myrbetriq recently. She reports this is working fineMammogram - UTD 11/2019Dexa - 12/2017 - will repeat next year with mammogram cough not any better 84 year old female who presents with cough for over one week. She describes as a productive cough with yellow sputum. She has nasal congestion and rhinorrhea. She reports fatigue. She feels short of breath. She has been taking Mucinex and Claritin. She has no COPD or asthma. She has no history of pneumonia. Denies fever, chills, body aches, sore throat, chest pain at rest, abdominal pain, NVDC, rash. 6 month fatigue-- not sl eeping well bc of urinary frequney at nightfribromyalgia-- takes lyricahld-- had tried to stop statin before, but unsure if that helped pain continued issues wit h left leg vague symptomscant put into words when i t hurtsusing alevefeel a cpuple of weeks agono swelling px chronic conditio nsleft knee pain-- after fall, knee gave out, pain with movementhld-- on stainfibromyalgai-- on llyricacontistipation is doing welldiet-- eating helathyexercise-- regularscreening-- utdimmunizations-- utdmood-- okmemory-- no sign of cognitive impairment Functional Status Date Functional Assessmen t No Information Instructions Date Instruction Additional Infor mation continue statin Related to Mixed hyperlipidemia continue meds Related to Fibro myalgia take meloxicam daily Related to Arthritis Medication management Monitor symptomsCont act us if this occurs again Related to Dizziness We will check urine specimen tod ay Related to Dysuria continue statin Related to Carot id stenosis, bilateral continue statin Cont inue to work on low fat diet and increase regular exercise with goal of walking at least 30 minutes 3-5 times per week Related to Mixed hyperlipidemia Wear pads daily as needed Relate d to Overactive bladder Continue medications Continue to drink water throughout the day Related to Chronic idiopathic constipation Stay activeCall is i f you feel that you need to start medicationStatus: Able to self-manage condition. Goals: Your goal is to be active. Barriers: No barriers to goal achievement have been identified. Related to Depression, unspecified depression type Continue Lyrica daily Related to Fibromyalgia Follow-up in 6 month sGet regular exercise and eat a healthy diet Related to Encounter for general adult medical examination without abnormal findings Urinary Incontinence Fall Risk Prevention take aleve and hughen ol for painwill send to ortho Related to Right hip pain Medication management will get mri to rule out bicep t ear Related to Injury of right upper extremity, initial encounter Medication management Followup with ENT for ear wax im paction Related to Excessive cerumen in left ear canal Followup with ENT for ear wax im paction Related to Hearing loss, unspecified hearing loss type, unspecified laterality Followup with ENT for ear wax im paction Related to Impacted cerumen, right ear Dietary management e ducation, guidance, and counseling Related to Body mass index (BMI) 23.0-23.9, adult Use ear wax softenin g drops in both ears until your next appointmentReturn in 2 weeks for ear wash Related to Hearing loss, unspecified hearing loss type, unspecified laterality Use ear wax softenin g drops in both ears until your next appointmentReturn in 2 weeks for ear wash Related to Impacted cerumen, right ear Use ear wax softenin g drops in both ears until your next appointmentReturn in 2 weeks for ear wash Related to Excessive cerumen in left ear canal continue statin Related to Carot id stenosis, bilateral will add mobic Related to Fibro myalgia will start tolertodine Related t o Overactive bladder Medication management Take 1 tablet of dip henhydramine every 6 hoursTake pepcid twice dailyMonitor your symptoms and call us if they worsen (worsening swelling, redness, warmth, pain, fever, chills) Related to Wasp sting, accidental or unintentional, initial encounter now back to normalif swells again, call us Related to Swelling of left hand Medication management Continue MyrbetriqPe rform Kegel exercises Related to Overactive bladder Stay activeCall is i f you feel that you need to start medicationStatus: Able to self-manage condition. Goals: Your goal is to be active. Barriers: No barriers to goal achievement have been identified. Related to Depression, unspecified depression type continue statin Related to Mixed hyperlipidemia Continue medications Continue to drink water throughout the day Related to Chronic idiopathic constipation continue gabapentin dailyRecommend taking Tylenol regularly and take naproxen only as needed. Make sure you take this with food. Related to Fibromyalgia Follow-up in 6 month sGet regular exercise and eat a healthy diet Related to Encounter for general adult medical examination without abnormal findings Urinary Incontinence Fall Risk Prevention Fall Risk Prevention Dietary management e ducation, guidance, and counseling Related to Body mass index (BMI) 22.0-22.9, adult Take antibiotic as p rescribedTake Tessalon Perles as needed for cough suppression Related to Cough will check cbc and b mptsh has been normal Related to Chronic fatigue will check uathen start a med Re lated to Urinary frequency continue lyrica Related to Fibro myalgia continue statin Related to Mixed hyperlipidemia Medication management not better, so will get x raycontinue to take aleve Related to Knee pain, left anterior Medication management continue to monitorc all in a month if not better Related to Knee pain, left anterior continue statin Related to Mixed hyperlipidemia doing well continue meds Related to Chronic idiopathic constipation continue lyrica Related to Fibro myalgia annual flu shotneeds shingrixcontinue healthy diet and exercisefollow up in 6 months Related to Encounter for general adult medical examination without abnormal findings Medication management Fall Risk Prevention Urinary Incontinence Assessments Type Assessment Date assessment Dizziness assessment Bradycardia, unspecified 2022 Patient Care Teams Name Effective Dates (start - stop) Status Members No Information
--- OUTSIDE RECORDS SUMMARY | 2025-02-25 14:25 | XMS_ITS | Clinical Summary ---
Author Organization [facility] Address [address], [place] [address] Phone Care Team Providers Care Mobile Ui Designer Name Role Phone Germania Vuong MD Primary Care Provider [phone] Emile Vasquez DO Unavailable Allergies Active Allergy Reactions Criticality Noted Date [...] on file Legal Sex Female 11:12 AM BRUSH MAKER Gender Identity Not on file Sexual Orientation Not on file Plan of Treatment Health Maintenance Due Date Last Done Comments Hepatitis C Virus (HCV) Screening 1935 TdaP Immunization 1935 Zoster Immunization (1 of 2) 1985 Respiratory Syncytial Virus (RSV) Immunization (Adult) (1 - 1-dose 75+ series) 2010 SARS-COV-2 Immunization ( - 2023- season) 2024 04/20/2021, 09/19/2020, 08/27/2020 Influenza Immunization (#1) 02/28/202512/2019, 04/06/2019, 04/02/2018, Additional history exists Pneumococcal Immunization (50+ years) Completed 12/27/2016, 04/12/2015 Pneumococcal Immunization Combined Discontinued 12/27/2016, 04/12/2015 Hepatitis B Immunization Aged Out No longer eligible based on patient's age to complete this topic Human Papillomavirus (HPV) Immunization Aged Out No longer eligible based on patient's age to complete this topic Meningococcal Immunization (ACWY) Aged Out No longer eligible based on patient's age to complete this topic Rotavirus Immunization Aged Out No lo nger eligible based on patient's age to complete this topic Insurance MEDICARE [facility] Care Teams Mobile Ui Designer Relationship Specialty Start Date End Date Germania Vuong MD [address] [place] [address] PCP - General Family Medicine 10/16/15 Emile Vasquez DO [address] [place] [address] Consulting Physician Gastroenterology 10/16/15
--- OUTSIDE RECORDS SUMMARY | 2025-02-25 14:25 | XMS_ITS | Encounter Summary ---
Author Organization [facility] Address [address] [facility] [place] [address] Care Team Providers Care Auto Refinisher Name Role Phone Mita Duque DO Primary Care Provider [phone] Stacy Munoz MD Unavailable [phone] Encounter Details Date Type Department Care Team (Late st Contact Info) Description 02/05/2012 [facility] Visit [facility] [place] [address] [facility] [address] [place] [address] Social History Tobacco Use Types Packs/Day Years Used Date Smoking Tobacco: Never Smokeless Tobacco: Never Alcohol Use Standard Drinks/Week Comments Yes 0 (1 standard drink = 0.6 oz pur e alcohol) Comments Unknown Sex and Gender Information Value Date Recorded Sex Assigned at Not on file Legal Sex Female 10:02 AM OFFSET SECOND PRESS OPERATOR Gender Identity Not on file Sexual Orientation Not on file documented as of this encounter Plan of Treatment Not on file documented as of this encounter Visit Diagnoses Not on filedocumented in this encounter Care Teams Auto Refinisher Relationship Specialty Start Date End Date Mita Duque DO [address] [place] [address] PCP - General 08/23/10 Stacy Munoz MD [address] [place] [address] Orthopedic Surgery 03/13/12 documented as of this encounter
--- OUTSIDE RECORDS SUMMARY | 2025-02-25 14:25 | XMS_ITS | Clinical Summary ---
Author Organization [facility] Address [address] [place] [address] Care Team Providers Care Vice President Planning Name Role Phone Mita Duque DO Primary Care Provider [phone] Stacy Munoz MD Unavailable Source Comments [facility],non-owned Affiliates and Associated Physician Practices is amultiple site organization consisting of ambulatory clinics and hospital sitesin [place], [place], [place] and [place]. This disclosure is being madepursuant to the Care Everywhere program and may not contain all information available regarding this patient. Last updated 18.[facility] Allergies Active Allergy Reactions Criticality Noted Date [...] on file Legal Sex Female 10:02 AM ENTRY LEVEL MACHINE OPERATOR Gender Identity Not on file Sexual [...] 62.1 kg (137 lb) 08/28/2012 1:53 PM ENTRY LEVEL MACHINE OPERATOR Height 160 cm (5' 3) 08/28/2012 1:53 PM ENTRY LEVEL MACHINE OPERATOR Body Mass Index 24.27 08/28/2012 1:53 PM ENTRY LEVEL MACHINE OPERATOR Plan of Treatment Health Maintenance Due Date [...] season) 2024 DEPRESSION SCREENING 06/30/2024 INFLUENZA VACCINE (#1) 2025 HEPATITIS B VACCINE Aged Out No [...] patient's age to complete this topic Insurance [facility] MEDICARE MEDICARE Care Teams Vice President Planning Relationship Specialty Start Date End Date Mita Duque DO [address] [place] [address] PCP - General 08/23/10 Stacy Munoz MD [address] [place] [address] Orthopedic Surgery 03/13/12
--- OUTSIDE RECORDS SUMMARY | 2025-02-25 14:25 | XMS_ITS | Encounter Summary ---
Author Organization [facility] Address [address] [facility] [place] [address] Care Team Providers Care Director Of Volunteer Services Name Role Phone Mita Duque DO Primary Care Provider [phone] Stacy Munoz MD Unavailable [phone] Encounter Details Date Type Department Care Team (Late st Contact Info) Description 02/28/2012 [facility] Outpatient Visit [facility] [address] [facility] [address] [place] [address] [place] [address] [facility] [address] [place] [address] Social History Tobacco Use Types Packs/Day Years Used Date Smoking Tobacco: Never Smokeless Tobacco: Never Alcohol Use Standard Drinks/Week Comments Yes 0 (1 standard drink = 0.6 oz pur e alcohol) Comments Unknown Sex and Gender Information Value Date Recorded Sex Assigned at Not on file Legal Sex Female 10:02 AM ACTIVITY THERAPIST Gender Identity Not on file Sexual Orientation Not on file documented as of this encounter Plan of Treatment Not on file documented as of this encounter Visit Diagnoses Not on filedocumented in this encounter Care Teams Director Of Volunteer Services Relationship Specialty Start Date End Date Mita Duque DO [address] [facility] [place] [address] PCP - General 08/23/10 Stacy Munoz MD [address] [place] [address] Orthopedic Surgery 03/13/12 documented as of this encounter
--- OUTSIDE RECORDS SUMMARY | 2025-02-25 14:26 | XMS_ITS | Clinical Summary ---
Author Organization [facility] Address [address] [place] [address] Care Team Providers Care Loading Manager Name Role Phone Blaise Clifford DO Primary Care Provider [phone] Allergies Active Allergy Reactions Criticality Noted Date [...] Comments Blood Pressure 166/87 05/05/2022 8:53 PM LAVATORY ATTENDANT Pulse 71 05/05/2022 8:53 PM LAVATORY ATTENDANT Temperature 36.6 C (97.9 F) 05/05/2022 5:46 PM LAVATORY ATTENDANT Respiratory Rate 16 05/05/2022 8:53 PM LAVATORY ATTENDANT Oxygen Saturation 98% 05/05/2022 8:53 PM LAVATORY ATTENDANT Inhaled Oxygen Concentration - - Weight 51.3 kg (113 lb) 05/05/2022 5:46 PM LAVATORY ATTENDANT Height 157.5 cm (5' 2) 05/05/2022 5:46 PM LAVATORY ATTENDANT Body Mass Index 20.67 05/05/2022 5:46 PM LAVATORY ATTENDANT Plan of Treatment Health Maintenance Due Date [...] age to complete this topic Insurance MEDICARE [facility] Care Teams Loading Manager Relationship Specialty Start Date End Date Blaise Clifford DO [address] [place] [address] [place] [address] PCP - General FAMILY PRACTICE 04/16/22
--- OUTSIDE RECORDS SUMMARY | 2025-02-25 14:26 | XMS_ITS | Clinical Summary ---
Author Organization [facility] [address] [facility] Address [address] [place] [address] Care Team Providers Care Catering And Events Manager Name Role Phone Reese Alcazar MD Primary Care Provider [phone] Allergies Active Allergy Reactions Criticality Noted Date [...] mg tablet,chewable 500 mg daily A ctive kdvr-xxy-ppu-gato -qdfj-cvcg-rvm (Fiber 6) 1,000 mg tablet Rx: Fiber [...] acromioplasty on 11/01/[address] Munoz at [facility] 09/21/2020 Bilateral impacted cerumen 08/07/2020 Pharyngoesophageal dysphagia [...] on file Legal Sex Female 12:12 PM REGULATORY AFFAIRS DIRECTOR Gender Identity Not on file Sexual Orientation Not on file Occupation Industry Job Start Date Job End Date retired Not on file Not on file Not on file Obstetrics History Last Filed Vital Signs Vital Sign [place] Time Taken Comments Blood Pressure 110/53 10/19/2016 3:08 PM CDT Pulse 70 10/19/2016 3:08 PM CDT Temperature 37.1 C (98.7 F) 08/07/2020 10:20 AM REGULATORY AFFAIRS DIRECTOR Respiratory Rate - - Oxygen Saturation 95% 10/19/2016 3:08 PM CDT Inhaled Oxygen Concentration - - Weight 55.3 kg (122 lb) 01/02/2021 9:20 AM CDT Height 158.8 cm (5' 2.5) 01/02/2021 9:20 AM CDT Body Mass Index 21.96 01/02/2021 9:20 AM CDT Plan of Treatment Not on file Insurance MEDICARE [facility] MEDICARE [facility] MEDICARE [facility] Care Teams Catering And Events Manager Relationship Specialty Start Date End Date Reese Alcazar MD PCP - General Internal Medicine 07/27/20
== END 2025-02-25 14:24 | disposition home or self-care (01) ==
LOC: ANHGOSHLAB 14:23
PROVIDERS: PCP Family Medicine; Visit Provider Student in an Organized Health Care Education/Training Program
DX: R10.9 Unspecified abdominal pain (principal); R53.83 Other fatigue
CPT/HCPCS: 87086

== ENCOUNTER 2025-02-25 14:44 | Outpatient (CLI) | payer MEDICARE, BC, SELFPAY ==
--- NOTE | ~2025-02-25 | CT_ITS ---
EXAMINATION: CT abdomen pelvis wo con DATE: 02/25/2025 15:08 INDICATION: Lower abdominal pain TECHNIQUE: Computed tomography (CT) of the abdomen and pelvis was performed without intravenous contrast. Automated exposure control and iterative reconstruction technique were employed. The dose-length product was 329.51 mGy-cm. COMPARISON: 12/13/2021 FINDINGS: Lung bases are clear. Heart size is normal. Atherosclerotic coronary artery calcific location. No pericardial or pleural effusion. Small sliding-type hiatal hernia. Liver, gallbladder, pancreas and bilateral adrenal glands are normal. There are few bilateral renal cysts the largest on the left measuring 4.8 cm. Splenic calcifications consistent with old granulomatous disease. There is prominent colonic diverticulosis with a sigmoid predominance but without adjacent inflammatory change to suggest diverticulitis. The appendix is not visualized. No pericecal inflammatory change to suggest acute appendicitis. No bowel obstruction. Bladder is normal. The uterus is not identified and has likely been surgically resected. No free intraperitoneal gas or fluid. No pathologically enlarged abdominal or pelvic lymphadenopathy. There are several retroperitoneal surgical clips near the location of the caudal aorta and inferior vena cava. Multiple additional surgical clips along left upper quadrant anterior abdominal wall. A few loops of small bowel extend across a small widemouthed midline ventral hernia. Mild S-shaped curvature of the lumbar spine with severe lumbar and lower thoracic spondylosis. IMPRESSION: 1. No acute intra-abdominal/pelvic process. 2. Small sliding-type hiatal hernia. Reviewed, dictated and finalized at location A.
== END 2025-02-25 14:45 | disposition home or self-care (01) ==
LOC: GOSHIMG 14:45
PROVIDERS: PCP Family Medicine; Visit Provider Student in an Organized Health Care Education/Training Program
DX: R10.30 Lower abdominal pain, unspecified (principal); K44.9 Diaphragmatic hernia without obstruction or gangrene
CPT/HCPCS: 74176

== ENCOUNTER 2025-02-27 13:17 | Emergency (ER) | payer MEDICARE, BC, SELFPAY ==
--- NOTE | ~2025-02-27 | CT_ITS ---
EXAMINATION: CT abdomen pelvis w con DATE: 02/27/2025 16:14 INDICATION: Lower abdominal pain and bloating TECHNIQUE: Computed tomography (CT) of the abdomen and pelvis was performed with 100 mL Omnipaque-350 intravenous contrast. Automated exposure control and iterative reconstruction technique were employed. The dose-length product was 181.56 mGy-cm. COMPARISON: CT dated 02/25/2025 FINDINGS: Minimal right basilar atelectasis. Heart size normal. No pericardial or pleural effusion. Atherosclerotic coronary artery calcifications. Small sliding-type hiatal hernia. Liver, gallbladder, pancreas and bilateral adrenal glands are normal. Splenic calcifications are consistent with old granulomatous disease. Bilateral renal cysts the largest measuring 4.8 cm the upper pole the left kidney. There is moderate colonic diverticulosis with a sigmoid predominance. There is no adjacent inflammatory change to suggest diverticulitis. No bowel obstruction. Bladder is normal. The uterus is not identified and has likely been surgically resected. Multiple retroperitoneal stranding clips near the caudal aorta and inferior vena cava. Multiple additional surgical clips along the left lower quadrant anterior abdominal wall. No free intraperitoneal gas or fluid. No pathologically enlarged abdominal or pelvic lymphadenopathy. Mild S-shaped lumbar curvature with severe spondylosis of the lumbar and lower thoracic spine. IMPRESSION: 1. No acute intra-abdominal/pelvic process. 2. Small sliding-type hiatal hernia. 3. Moderate sigmoid predominant diverticulosis. Reviewed, dictated and finalized at location A.
--- NOTE | ~2025-02-27 | XR_ITS ---
EXAMINATION: XR chest 2V DATE: 02/27/2025 15:17 INDICATION: Weakness TECHNIQUE: PA and lateral views of the chest were obtained. COMPARISON: Chest radiograph dated 05/14/2024 FINDINGS: Calcified nodules in the left upper lung zone consistent with old granulomatous disease. No other airspace opacities, pulmonary edema, pleural effusion or pneumothorax. The cardiomediastinal silhouette is normal. Mild thoracic dextroscoliosis with severe spondylosis. There are few old healed right rib fractures. Bilateral rotator cuff arthropathy. IMPRESSION: 1. No acute cardiopulmonary disease. Reviewed, dictated and finalized at location A.
--- NOTE | ~2025-02-27 | CT_ITS ---
EXAMINATION: CT brain wo con DATE: 02/27/2025 15:09 INDICATION: Weakness TECHNIQUE: Computed tomography (CT) of the head was performed without intravenous contrast. Sagittal and coronal reconstructions were performed. The mA was adjusted according to patient size. Iterative reconstruction technique was employed. The dose-length product was 756.67 mGy-cm. COMPARISON: head CT dated 11/10/2023 FINDINGS: No acute intracranial hemorrhage, acute infarction or abnormal extra axial fluid collection. There is mild scattered white matter hypoattenuation consistent with chronic small vessel ischemic disease. Ventricles are normal and symmetric. No mass/mass effect. Changes of bilateral intraocular lens replacement. The orbits, paranasal sinuses and mastoid air cells are normal. There is an impacted left maxillary molar. IMPRESSION: 1. Stable appearance of normal aging brain. No acute intracranial process. Reviewed, dictated and finalized at location A.
[2025-02-27 13:26] VITALS: BP 97/51; PULSE 67; RESP 20; TEMP 36.4; O2SAT 100
--- NOTE | 2025-02-27 13:50 | ECG_ITS ---
Test Date: 2025-02-27 14:03:27 Measurements Intervals [place] Rate: 58 P: 107 [place]: 193 QRS: 64 QRSD: 89 T: 81 QT: 440 QTc: 433 Interpretive Statements SINUS BRADYCARDIA MINIMAL Q WAVES- HIGH LATERAL LEADS BASELINE ARTIFACT- I, II, III, AVR, AVL, AVF, V1-V6 BORDERLINE ECG No previous ECG available for comparison Electronically Signed On 02-27-2025 15:49:13 CDT by Salvador Laurent D.O.
[2025-02-27 13:57] VITALS: PULSE 56
[2025-02-27 13:59] LABS: Hematocrit 39.9 % (37.0-47.0); Hemoglobin 13.0 g/dL (12.0-15.0); Immature Granulocyte Percent A 0.1 % (0-0.5); Lymphocytes Absolute Auto 3.22 K/mm3 (0.9-3.2); Mean Corpuscular HGB Conc 32.6 g/dl (32-36); Mean Corpuscular Hemoglobin 30.0 pg (26-34); Mean Corpuscular Volume 92.1 fl (80-100); Nucleated Red Blood Cells Absolute Auto 0.000 K/mm3 (0.0-0.012); Nucleated Red Blood Cells Perc 0.0 % (0.0-0.2); Platelet Count Result 239 k/mm3 (150-375); Red Blood Count 4.33 M/mm3 (4.2-5.4); White Blood Count 7.3 K/mm3 (4.5-10.0)
[2025-02-27 14:03] LABS: Add Urine Microscopic? YES; Appearance Urine Cloudy (Clear); Glucose Urine UA Negative (Negative); Leukocyte Esterase Ur Trace LEU/UL (Negative); Nitrate Urine Negative (Negative); Non Pathogenic Casts 0-2; Specific Grav Ur 1.020 (1.001-1.035)
[2025-02-27 14:13] LABS: Alanine Aminotransferase 20 U/L (6-35); Albumin Level 4.3 g/dL (3.5-5.1); Alkaline Phosphatase 62 U/L (38-126); Anion Gap 6 mmol/L (4-12); Aspartate Amino Transferase 37 U/L (14-36); Bilirubin,Total 0.4 mg/dL (0.2-1.3); Blood Urea Nitrogen 29 mg/dL (7-17); Calcium 9.4 mg/dL (8.4-10.2); Carbon Dioxide 29 mmol/L (22-30); Chloride 104 mmol/L (98-107); Estimated Glomerular Filt Rate 57; Glucose 82 mg/dL (65-110); Potassium 4.4 mmol/L (3.4-5.0); Sodium 139 mmol/L (137-145); Total Protein 7.6 g/dL (6.3-8.2)
[2025-02-27 14:21] LABS: INR 1.0; Partial Thromboplastin Time 27.6 Seconds (22.3-36.8); Prothrombin Time 13.5 Seconds (11.1-14.7)
--- NOTE | 2025-02-27 14:28 | ED.WEAKNESS ---
HPI - Weakness General Chief complaint: Weakness Stated complaint: low blood pressure, weakness Time Seen by Provider: 02/27/25 14:03 Source: patient Mode of arrival: ambulatory Limitations: no limitations History of Present Illness HPI Narrative: Patient is an 89-year-old female who presents the ED with report of generalized weakness. Patient reports she she has felt terrible for the past 1 week. Has had fatigue, generalized weakness. Reports she has not felt like doing much. She states over the last couple of days, her blood pressure has been low into the 80s to 90 systolic. She states her blood pressure is typically around 115/60. She is not on hypertensive medications. She denies focal weakness or numbness. Denies cough or cold symptoms, fevers, chest pain, shortness of breath. She does admit to some lower abdominal discomfort and feeling of incomplete bladder emptying at times, although states this has been ongoing for the past 4-5 years. Related Data Home Medications ?Medication ?Instructions ?Recorded ?Confirmed ?Last Taken ?Type cyanocobalamin (vitamin B-12) 500 500 mcg PO DAILY 01/03/21 02/25/25 04/08/23 09:00 History mcg tablet lactobacillus combination no.4 3 3 cell PO DAILY 01/03/21 02/25/25 01/02/21 History billion cell capsule (Probiotic) magnesium 250 mg tablet 250 mg PO DAILY 01/03/21 02/25/25 01/02/21 History psyllium husk 3 gram oral powder 1 packet PO DAILY 01/03/21 02/25/25 01/02/21 History packet (Daily Fiber (psyllium-aspartame)) turmeric 100 mg-ge 150 1 cap PO DAILY 01/03/21 02/25/25 01/02/21 History mg-olive 50 mg-oreg 150 mg-capryl capsule ascorbate calcium (vitamin C) 500 500 mg PO DAILY 09/11/21 02/25/25 04/08/23 09:00 History mg tablet calcium 600 mg (as 2 tablet PO DAILY 09/11/21 02/25/25 04/08/23 09:00 History carbonate)-vitamin D3 5 mcg (200 unit) tablet (Calcium 600 + D(3)) cholecalciferol (vitamin D3) 50 50 mcg PO DAILY 03/15/22 08/29/25 10/10/23 09:00 History mcg (2,000 unit) capsule (Vitamin D3) mirabegron 25 mg tablet,extended 50 mg PO DAILY 12/13/21 02/25/25 Unknown History release 24 hr (Myrbetriq) docusate sodium 100 mg capsule 100 mg PO DAILY 05/14/24 02/25/25 Unknown History (Stool Softener) meloxicam 7.5 mg tablet 7.5 mg PO DAILY 05/14/24 02/25/25 Unknown History Allergies Allergy/AdvReac Type Severity Reaction Status Date / Time chlorpheniramine Allergy Unknown Unknown Verified 02/25/25 13:13 guaifenesin Allergy Unknown Unknown Verified 02/25/25 13:13 phenylephrine Allergy Unknown Unknown Verified 02/25/25 13:13 phenylpropanolamine Allergy Unknown Unknown Verified 02/25/25 13:13 prednisone Allergy Unknown Unknown Verified 02/25/25 13:13 pseudoephedrine Allergy Unknown Unknown Verified 02/25/25 13:13 sulfamethoxazole Allergy Unknown Unknown Verified 02/25/25 13:13 trimethoprim Allergy Unknown Unknown Verified 02/25/25 13:13 cephalexin AdvReac Unknown Unknown Verified 02/25/25 13:13 duloxetine AdvReac Unknown Nausea and Verified 02/25/25 13:13 Vomiting Review of Systems Review of Systems: All systems reviewed & are unremarkable except as noted in HPI. All systems reviewed & are unremarkable except as noted in HPI and below PMFSH Past Medical History Medical History Cervicalgia Chronic constipation Hereditary and idiopathic neuropathy SBO (small bowel obstruction) Scalp itch Fibromyalgia Peripheral neuropathy History of small bowel obstruction Hyperlipidemia Ovarian cancer Surgical History Surgical History History of bilateral oophorectomy History of removal of Port-a-Cath H/O repair of left rotator cuff History of total right knee replacement History of tonsillectomy H/O: hysterectomy Family History Family History Father Asthma Diabetes mellitus Mother Lung cancer Liver cancer Brain cancer Sibling Bone cancer Other Bone cancer Other Breast cancer Social History Social History Social History: the patient became many years ago. The patient had 2 children and 1 daughter of rye syndrome. The patient has 1 daughter left who is in contact with her. The patient is listed as a full code. She lives home alone is very active. 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 lifelong nonsmoker Smoking status: Never smoker Second hand tobacco smoke exposure: No Alcohol intake: former Substance use: never Substance use type: does not use Do You Feel Safe in your Home?: Yes Lack of Transportation: No Lack of Food: Never True Current Housing: I Have Housing Concerned About Future Housing: No Difficulty Paying Gas/Electric Bills: No Difficulty Paying for Meds: No Currently Unemployed: No Education: High School Diploma/GED Difficulty w/ Childcare or Family Care: No Living arrangements: alone Occupation/Education: retired Gender identity (if verbalized by the patient): Female Spiritual care concerns: No Exam Narrative: GENERAL: Elderly, well appearing, well-nourished, non-toxic, in no acute distress. HEAD: Normocephalic, atraumatic. EYES: PERRL/EOMI, conjunctivae clear bilaterally. No nystagmus. NECK: Supple. No meningeal signs. RESPIRATORY: Airway patent, respirations nonlabored. Clear to auscultation bilaterally, no rales, rhonchi, wheezing. CARDIOVASCULAR: Regular rate and rhythm without murmurs, rubs, or gallops. Radial pulses 2+ and equal bilaterally. ABDOMINAL: Soft, minimal tenderness throughout lower abdomen, nondistended. Normoactive BS. MUSCULOSKELETAL: Moves all extremities. No gross deformities. SKIN: Warm, dry, normal color. No rashes. NEURO: A&O X3. Speech clear. Follows commands. CN II-XII grossly intact. Sensation grossly intact. Steady gait. No ataxic movements. Strength 5/5 in upper and lower extremities bilaterally. No pronator drift. Equal sawmill tally clerk strength bilaterally. PSYCHIATRIC: Mildly anxious appearing. Normal interaction. Course Vital Signs Vital signs: Vital Signs Temperature 97.5 F L 02/27/25 13:26 Pulse Rate 67 02/27/25 13:26 Respiratory Rate 20 02/27/25 13:26 Blood Pressure 97/51 L 02/27/25 13:26 Pulse Oximetry 100 02/27/25 13:26 Oxygen Delivery Room Air 02/27/25 13:26 Temperature 97.5 F L 02/27/25 13:26 Pulse Rate 55 L 02/27/25 18:58 Respiratory Rate 18 02/27/25 18:58 Blood Pressure 168/85 H 02/27/25 18:58 Pulse Oximetry 100 02/27/25 18:58 Oxygen Delivery Room Air 02/27/25 13:26 MDM - Weakness MDM Narrative Medical decision making narrative: Patient presented to ED with 1 week history of generalized weakness, fatigue. Vital signs are stable upon arrival, blood pressure is slightly soft at 97/51. This did improve w/o intervention prior to my evaluation. Reported her blood pressures have been low at home. Orthostatic vital signs were evaluated and were reassuring. No significant drop in blood pressure or elevation in heart rate. Patient was given fluids for weakness. Laboratory studies are fairly unremarkable. No leukocytosis or anemia. Stable electrolytes. Stable kidney function. Normal LFTs. UA without signs of infection. She also voiced concern over urinary retention. Postvoid residual was obtained and less than 30 mL of bladder after urination. No evidence of retention. Viral swabs are negative. EKG with sinus bradycardia, which patient does have history of per previous ED visits, no concerning ST changes. Troponin is undetectable. CT brain was obtained and without acute findings. Chest x-ray is clear. Patient did began having some more pain throughout her lower abdomen during ED stay. CT scan of abdomen/pelvis was obtained, showing diverticulosis, no evidence of diverticulitis. No other acute intra-abdominal findings. Discussed CT findings and possibility of gas/constipation. She does report recent issues with constipation and has been intermittently taking laxatives. Discussed stool softeners, high-fiber diet, staying well hydrated. Discussed extensive workup with patient and family, overall reassuring evaluation. No concerning features to explain weakness. Blood pressures have been stable if not slightly elevated since receiving fluids. She has not had any further hypotensive readings. She has remained neurologically intact. Feel she is safe for discharge home with close outpatient follow-up. Patient and family are in agreement this plan. Patient comfortable going home. Given strict return precautions. Discharged in stable condition. Medical Records Attestation: I reviewed the patient's medical records. Lab Data Attestation: I reviewed the patient's lab results. 02/27/25 13:54 02/27/25 13:54 Labs: Lab Results 02/27/25 02/27/25 02/27/25 Range/Units 13:52 13:54 14:27 WBC 7.3 (4.5-10.0) K/mm3 RBC 4.33 (4.2-5.4) M/mm3 Hgb 13.0 (12.0-15.0) g/dL Hct 39.9 (37.0-47.0) % MCV 92.1 (80-100) fl MCH 30.0 (26-34) pg MCHC 32.6 (32-36) g/dl RDW 12.1 (11.5-14.5) % Plt Count 239 (150-375) k/mm3 MPV 9.2 (7.4-10.4) fl Immature Gran % (Auto) 0.1 (0-0.5) % Neut % (Auto) 45.1 L (45.5-73.1) % Lymph % (Auto) 43.9 (18.3-44.2) % [place] % (Auto) 7.8 (2.6-8.5) % Eos % (Auto) 2.3 (0-4.4) % Baso % (Auto) 0.8 (0.2-1.2) % Lymph # (Auto) 3.22 H (0.9-3.2) K/mm3 [place] # (Auto) 0.6 (0.1-0.6) K/mm3 Eos # (Auto) 0.2 (0-0.3) K/mm3 Baso # (Auto) 0.1 (0.0-0.1) K/mm3 Abs Immat Gran (auto) 0.01 (0.00-0.031) K/mm3 Absolute Neuts (auto) 3.3 (1.3-6.7) K/mm3 Absolute Nucleated RBC 0.000 (0.0-0.012) K/mm3 Nucleated RBC % 0.0 (0.0-0.2) % PT 13.5 (11.1-14.7) Seconds INR 1.0 APTT 27.6 (22.3-36.8) Seconds Sodium 139 (137-145) mmol/L Potassium 4.4 (3.4-5.0) mmol/L Chloride 104 (98-107) mmol/L Carbon Dioxide 29 (22-30) mmol/L Anion Gap 6 (4-12) mmol/L BUN 29 H (7-17) mg/dL Creatinine 0.92 (0.7-1.0) mg/dL Estim Creat Clear Calc Not Reportable Estimated GFR 57 L (59 - ) Glucose 82 (65-110) mg/dL Calcium 9.4 (8.4-10.2) mg/dL Total Bilirubin 0.4 (0.2-1.3) mg/dL AST 37 H (14-36) U/L ALT 20 (6-35) U/L Alkaline Phosphatase 62 (38-126) U/L Troponin I < 0.012 (0.000-0.034) ng/mL Total Protein 7.6 (6.3-8.2) g/dL Albumin 4.3 (3.5-5.1) g/dL Urine Color Yellow (Yellow) Urine Appearance Cloudy H (Clear) Urine pH 6.0 (5.0-9.0) Ur Specific [place] 1.020 (1.001-1.035) Urine Protein Negative (Negative) mg/dL Urine Glucose (UA) Negative (Negative) mg/dL Urine Ketones Negative (Negative) mg/dL Ur Blood (Man) Negative (Negative) Urine Nitrate Negative (Negative) Urine Bilirubin Negative (Negative) Urine Urobilinogen 0.2 (<2.0) mg/dL Leukocyte Esterase Rfl Trace H (Negative) BALDOMERO/UL Urine RBC 0-2 (0-2) /hpf Urine WBC 0-5 (0-3) /hpf Ur Squamous Epith Cells None seen (Few) /hpf Urine Bacteria None seen /hpf Urine Casts 0-2 Influenza A (RT-PCR) Negative (Negative) Influenza B (RT-PCR) Negative (Negative) RSV (RT-PCR) Negative (Negative) SARS-CoV-2 RNA (RT-PCR) Negative (Negative) Imaging Data Attestation: I personally reviewed and interpreted this imaging study as follows: Radiologist's impression: ITS Impressions Head CT 02/27/25 15:25 IMPRESSION: 1. Stable appearance of normal aging brain. No acute intracranial process. Chest X-Ray 02/27/25 15:28 IMPRESSION: 1. No acute cardiopulmonary disease. Abdomen/Pelvis CT 02/27/25 16:45 IMPRESSION: 1. No acute intra-abdominal/pelvic process. 2. Small sliding-type hiatal hernia. 3. Moderate sigmoid predominant diverticulosis. ECG Data EKG #1: Attestation: I personally reviewed and interpreted this ECG as follows: ECG completion date: 02/27/25 ECG completion time: 14:03 EKG Interpretation: bradycardia (58), sinus rhythm and non-specific ST changes Discharge Plan Discharge Clinical Impression: Generalized weakness, Intermittent lower abdominal pain Fatigue Qualifiers: Fatigue type: unspecified Qualified Code(s): R53.83 - Other fatigue Patient Disposition: Home Condition: Stable Instructions: Antibiotic Form, Constipation (ED), Weakness (ED), Fatigue (ED) Additional Instructions: Stay well hydrated at home. You may continue to monitor blood pressure at home and keep recording of this. Utilize MiraLax, Dulcolax as needed for constipation. Recommend high-fiber diet. Follow-up with your primary care doctor for further evaluation. Return to the ED if you experience worsening or severe symptoms, severe weakness, numbness or weakness of one arm or leg, slurred speech, confusion, chest pain, difficulty breathing, severe abdominal pain, unable to keep down food or drink, persistent fevers, or any other symptoms of concern. Patient Language: Greenlandic Prescriptions: No Action meloxicam 7.5 mg Tablet 7.5 mg PO DAILY docusate sodium [Stool Softener] 100 mg Capsule 100 mg PO DAILY calcium carbonate-vitamin D3 [Calcium 600 + D(3)] 600 mg-5 mcg (200 unit) tablet 2 tablet PO DAILY cholecalciferol (vitamin D3) [Vitamin D3] 50 mcg (2,000 unit) capsule 50 mcg PO DAILY ascorbate calcium (vitamin C) 500 mg tablet 500 mg PO DAILY magnesium 250 mg Tablet 250 mg PO DAILY Probiotic 3 billion cell Capsule 3 cell PO DAILY Daily Fiber (psyllium-aspart) 3 gram Powder In Packet 1 packet PO DAILY vezzctzt-krtw-ijthm-oreg-capry 100 mg-150 mg- 50 mg-150 mg Capsule 1 cap PO DAILY cyanocobalamin (vitamin B-12) 500 mcg Tablet 500 mcg PO DAILY mirabegron [Myrbetriq] 25 mg Tablet Extended Release 24 Hr 50 mg PO DAILY simvastatin 40 mg tablet 40 mg PO DAILY Qty: 90 1RF pregabalin [Lyrica] 75 mg capsule 75 mg PO BID Qty: 180 3RF Follow-up/Referrals: Mor Scott MD [Primary Care Provider, [facility]] Time of Disposition: 18:43
[2025-02-27 14:29] LABS: Troponin I < 0.012 ng/mL (0.000-0.034)
[2025-02-27] MEDS: SODIUM CHLORIDE 0.9% IV 1,000 ML 999 ML IV CONT (14:31)
[2025-02-27 14:45] VITALS: BP 104/60; PULSE 52
[2025-02-27 14:47] VITALS: BP 106/66; BP 120/60; PULSE 58; PULSE 62
[2025-02-27 15:08] LABS: Influenza A QL RT-PCR Negative (Negative); Influenza B QL RT-PCR Negative (Negative); RSV RNA, RT-PCR Negative (Negative); SARS-CoV-2 RNA PCR Negative (Negative)
[2025-02-27 15:34] VITALS: BP 145/75; PULSE 65; RESP 18; O2SAT 99
[2025-02-27] MEDS: ACETAMINOPHEN 500 MG TABLET 1000 MG PO (16:32)
[2025-02-27 18:58] VITALS: BP 168/85; PULSE 55; RESP 18; O2SAT 100
== END 2025-02-27 19:00 | disposition home or self-care (01) ==
PROVIDERS: Emergency Medicine; Emergency Provider Physician Assistant; PCP Family Medicine
DX: R10.30 Lower abdominal pain, unspecified (principal); R53.83 Other fatigue; R00.1 Bradycardia, unspecified; Z20.822 Contact with and (suspected) exposure to COVID-19
CPT/HCPCS: 36415; 70450; 71046; 74177; 80053; 81001; 84484; 85025; 85610; 85730; 87637; 93005; 96360; 99284; A9270; J7030; Q9967